=== PATIENT | male | born 1935 | race Caucasian/White ===

== ENCOUNTER 2024-04-16 05:00 | Observation (INO) | payer MEDICARE, OTHER, SELFPAY ==
[2024-04-15 22:21] VITALS: BP 162/99
[2024-04-15 22:32] VITALS: BP 162/99
[2024-04-15 22:45] LABS: % Basophils 0.2 % (0-2); % Eosinophils 1.4 % (0-6); % Immature Granulocytes 0.2 % (0-0.5); % Lymphocytes 39.6 % (20.5-51.1); % Monocytes 4.3 % (1.7-9.3); % Neutrophils 54.3 % (42.2-75.2); Absolute Eosinophils 0.1 10^3/uL (0-0.7); Absolute Lymphocytes 4.1 10^3/uL (1.2-3.4); Absolute Monocytes 0.4 10^3/uL (0.1-0.6); Absolute Neutrophils 5.6 10^3/uL (1.4-6.5); Hematocrit 44.8 % (39.0-52.0); Hemoglobin 15.9 g/dL (13.0-18.0); Mean Corp Hgb Conc. 35.5 g/dL (33.0-37.0); Mean Corpuscular Hgb 31.3 pg (27.0-31.0); Mean Corpuscular Volume 88.2 fL (80.0-94.0); Mean Platelet Volume 9.9 fL (7.4-10.4); Nucleated Red Blood Cells % 0 % (-); Platelet Count 191 10^3/uL (130-400); Red Blood Cell Count 5.08 10^6/uL (4.70-6.10); Red Cell Dist. Width 13.2 % (11.5-14.5); White Blood Cell Count 10.2 10^3/uL (4.8-10.8)
--- NOTE | 2024-04-15 22:48 | ED.GENMED ---
History of Present Illness
General
Chief Complaint: Abdominal Symptoms
Time Seen by Provider: 04/15/24 22:46
Past History
Past History
ED Past Medical History: Arrthythmia (Atrial fibrillation), HTN, Hypercholesterolemia and Other (pacemaker)
ED Past Surgical History: Cardiac
Social History
Tobacco: Non-smoker
Alcohol: None
Drug: None
Personal:
Living: with family
Family History
Family History: Other (no significant); Negative Sudden
Course
Orders/Labs/Results
Orders:
Orders
04/15/24 22:36
IV Insert/Care/Rem.- Treatment PRN
04/15/24 22:37
Complete Blood Count/With Diff Urgent
04/15/24 22:38
Comprehensive Metabolic Panel Urgent
Lipase Urgent
04/15/24 22:53
Morphine Sulfate 4 mg .ROUTE .STK-MED ONE
Ondansetron Injectable [Zofran] 4 mg .ROUTE .STK-MED ONE
04/15/24 22:54
Morphine Sulfate 4 mg IV NOW STA
04/15/24 22:56
Ondansetron Injectable [Zofran] 4 mg IV NOW STA
04/15/24 23:02
Lactic Acid Urgent
Abnormal Lab Results
04/15/24 04/15/24
22:37 22:38
MCH 31.3 H pg
(27.0-31.0)
Absolute Lymphs (auto) 4.1 H 10^3/uL
(1.2-3.4)
Glucose 140 H mg/dl
(70-99)
Total Bilirubin 2.6 H mg/dl
(0.2-1.3)
04/15/24 22:37
04/15/24 22:38
Vital Signs
Initial and Last Documented VS:
Initial Vital Signs
Temp Pulse Resp BP Pulse Ox
97.5 F 77 20 162/99 99
04/15/24 22:32 04/15/24 22:32 04/15/24 22:32 04/15/24 22:32 04/15/24 22:32
Last Documented Vital Signs
Temp Pulse Resp BP Pulse Ox
97.5 F 77 20 162/99 99
04/15/24 22:32 04/15/24 22:32 04/15/24 22:32 04/15/24 22:32 04/15/24 22:32
ED Attending Note
-
Portions of this chart may have been created with voice recognition software.� Occasional wrong word or��sound alike� substitutions may have occurred due to the inherent limitations of voice recognition software.
Discharge Plan
Departure
Prescriptions:
No Action
tamsulosin 0.4 MG capsule
0.4 mg PO HS
Xarelto 20 MG tablet
20 mg PO DAILY
dutasteride 0.5 MG capsule
0.5 mg PO DAILY
donepezil 10 mg tablet
10 mg PO DAILY
cyanocobalamin (vitamin B-12) 1,000 mcg Tablet
1,000 mcg PO DAILY
meclizine 12.5 mg tablet
12.5 mg PO BID
acetaminophen 500 mg Tablet
500 mg PO BIDPRN PRN (Reason: mild pain)
carvedilol 3.125 mg tablet
3.125 mg PO BID
levothyroxine 75 mcg tablet
75 mcg PO Q48H
hydrocortisone 2.5 % cream with perineal applicator
1 applic topical DAILY
Patient Comments:
04/15/2024: apply to hemmoroids
ascorbic acid (vitamin C) 500 mg Tablet
500 mg PO DAILY
levothyroxine 50 mcg tablet
50 mcg PO Q48H
pantoprazole 40 mg tablet,delayed release (DR/EC)
40 mg PO DAILY
ezetimibe 10 mg tablet
10 mg PO HS
rosuvastatin 10 mg tablet
10 mg PO HS
lactulose [Enulose] 10 gram/15 mL solution
30 ml PO DAILY
cholecalciferol (vitamin D3) 50 mcg (2,000 unit) Tablet
50 mcg PO DAILY
mirabegron [Myrbetriq] 50 mg tablet extended release 24 hr
50 mg PO DAILY
icosapent ethyl [Vascepa] 1 gram capsule
2 g PO BID
memantine 7 mg capsule,sprinkle,ER 24hr
7 mg PO DAILY
Referrals:
UNKNOWN - PT DOES,NOT KNOW [Family Provider] -
Interventions
Interventions:
*Risk Screen - Suicide Last Done: 04/15/24 23:23
*General Assessment Last Done: 04/15/24 23:23
*Neglect/Abuse Screening Last Done: 04/15/24 23:23
*ED COVID-19 Vaccine History Last Done: 04/15/24 23:23
Discharge Date and Time
Print Language: WOLOF
[2024-04-15] MEDS: MORPHINE SULFATE 4 MG IV (22:55)
[2024-04-15] MEDS: ZOFRAN 4 MG IV (22:56)
[2024-04-15 23:00] VITALS: BP 142/98
[2024-04-15 23:04] LABS: ALT (SGPT) 18 U/L (0-50); AST (SGOT) 31 U/L (17-59); Albumin 4.7 g/dl (3.5-5.0); Alkaline Phosphatase 52 U/L (38-126); Blood Urea Nitrogen 20 mg/dl (9-20); Calcium 9.5 mg/dl (8.4-10.2); Carbon Dioxide 24 mmol/L (22-30); Chloride 106 mmol/L (98-107); Glucose 140 mg/dl (70-99); Lipase 78 U/L (23-300); Potassium 3.7 mmol/L (3.5-5.1); Sodium 139 mmol/L (135-145); Total Bilirubin 2.6 mg/dl (0.2-1.3); eGFR 53.17
--- NOTE | 2024-04-15 23:09 | ED.GENMED ---
History of Present Illness
<RADHA Lemos - Last Filed: 04/16/24 04:04>
General
Chief Complaint: Abdominal Symptoms
Source: family (daughter is interpreting )
Exam Limitations: none
Time Seen by Provider: 04/15/24 22:46
Nursing documentation reviewed up to this point in time: agreed with
History of Present Illness
History of Present Illness:
89 year old male presents for evaluation of abdominal pain and vomiting. Pt's daughter is present and interpreting for patient. She states that pt experienced one episode of sharp, right-sided abdominal pain on 04/14 which was relieved with Tylenol.
However, at approximately 1900 on 04/15, pt began experiencing the same sharp right-sided abdominal pain following a meal. Tylenol has not relieved the pain. Pt also vomited once prior to his arrival the ED, and once in his room following arrival. Pt
currently rates the pain as 9/10 in severity, and denies radiation. He has not experienced similar symptoms in the past. He denies CP, SOB, fever, chills, and changes in stool. Pt does have a recent diagnosis of hepatitis B, for which he is being
treated per daughter.
Past History
<RADHA Lemos - Last Filed: 04/16/24 04:04>
Past History
ED Past Medical History: Arrthythmia (Atrial fibrillation), HTN, Hypercholesterolemia and Other (pacemaker)
ED Past Surgical History: Cardiac
Social History
Tobacco: Non-smoker
Alcohol: None
Drug: None
Personal:
Living: with family
Family History
Family History: Other (no significant); Negative Sudden
Review of Systems
<RADHA Lemos - Last Filed: 04/16/24 04:04>
Review of Systems
Allergies reviewed?: No
Unable to obtain full review of systems at this time due to: language barrier
Other source history: family
Constitutional: Reports no symptoms
EENT: Reports no symptoms
Respiratory: Reports no symptoms
Cardiac: Reports no symptoms
ABD/GI: Reports abdominal pain, nausea and vomiting
: Reports no symptoms
Musculoskeletal: Reports no symptoms
Skin: Reports no symptoms
Neurological: Reports no symptoms
Phy Exam
<RADHA Lemos - Last Filed: 04/16/24 04:04>
General Physical Exam
General Presentation: mild distress
General age: appears stated age
General Skin: warm
General Habitus: elderly
General Mental: alert
General Hydration: dry mucous membranes (mild)
Cardiovascular Exam
Cardiovascular Exam: regular rate/rhythm and no murmur
Pulmonary Exam
Pulmonary Exam: lungs clear and no respiratory distress
Gastrointestinal Exam
Gastrointestinal Exam: non distended and tender
Palpation: right upper quadrant: Moderate tenderness and right lower quadrant: Moderate tenderness
Neurological Exam
Neurological Exam: alert and oriented x3
Skin Exam
Skin Exam: normal color
Course
<RADHA Lemos - Last Filed: 04/16/24 04:04>
Orders/Labs/Results
Orders:
Orders
04/15/24 22:36
IV Insert/Care/Rem.- Treatment PRN
04/15/24 22:37
Complete Blood Count/With Diff Urgent
04/15/24 22:38
Comprehensive Metabolic Panel Urgent
Lipase Urgent
04/15/24 22:53
Morphine Sulfate 4 mg .ROUTE .STK-MED ONE
Ondansetron Injectable [Zofran] 4 mg .ROUTE .STK-MED ONE
04/15/24 22:54
Morphine Sulfate 4 mg IV NOW STA
04/15/24 22:56
Ondansetron Injectable [Zofran] 4 mg IV NOW STA
04/15/24 23:02
Lactic Acid Urgent
04/15/24 23:32
HYDROmorphone [Dilaudid] 1 mg .ROUTE .STK-MED ONE
04/15/24 23:34
CT Abd/pelvis W Iv Cont Urgent
Comment:
Reason For Exam: RLQ pain and vomiting
HYDROmorphone [Dilaudid] 1 mg IV NOW STA
04/16/24 00:00
US Abdomen Complete/Upper Urgent
Reason For Exam: RUQ abd pain
04/16/24 01:06
COVID-19 Antigen Urgent
Source: Nasal Swab
04/16/24 02:47
Ondansetron Orally Disint [Zofran Odt (Orally Disintegrating)] 4 mg PO NOW STA
04/16/24 02:50
Ondansetron Injectable [Zofran] 4 mg .ROUTE .STK-MED ONE
04/16/24 02:52
Ondansetron Injectable [Zofran] 4 mg IV NOW STA
04/16/24 03:53
Admit/Transfer Patient As Directed
Co-Sign Provider:
Level of Care: Observation services
Assign to:: Telemetry
Physician / Group: htay
Diagnosis: Acute abdominal pain with N/V
Reason for Telemetry: Arrhythmia
Date to Stop Telemetry: 04/19/24
Time to Stop Telemetry: 11:00
04/16/24 03:55
Code Status As Directed
Resuscitation Status: Full Code
04/19/24 11:00
DC Protocol for Telemetry ONCE
Abnormal Lab Results
04/15/24 04/15/24
22:37 22:38
MCH 31.3 H pg
(27.0-31.0)
Absolute Lymphs (auto) 4.1 H 10^3/uL
(1.2-3.4)
Glucose 140 H mg/dl
(70-99)
Total Bilirubin 2.6 H mg/dl
(0.2-1.3)
04/15/24 22:37
04/15/24 22:38
Vital Signs
Initial and Last Documented VS:
Initial Vital Signs
Pulse Resp
83 30
04/15/24 22:20 04/15/24 22:20
Last Documented Vital Signs
Temp Pulse Resp BP Pulse Ox
97.5 F 75 24 120/75 97
04/15/24 22:32 04/16/24 02:22 04/16/24 02:22 04/16/24 02:23 04/16/24 02:22
<Jeferson Savage, - Last Filed: 04/16/24 03:59>
Orders/Labs/Results
Orders:
Orders
04/15/24 22:36
IV Insert/Care/Rem.- Treatment PRN
04/15/24 22:37
Complete Blood Count/With Diff Urgent
04/15/24 22:38
Comprehensive Metabolic Panel Urgent
Lipase Urgent
04/15/24 22:53
Morphine Sulfate 4 mg .ROUTE .STK-MED ONE
Ondansetron Injectable [Zofran] 4 mg .ROUTE .STK-MED ONE
04/15/24 22:54
Morphine Sulfate 4 mg IV NOW STA
04/15/24 22:56
Ondansetron Injectable [Zofran] 4 mg IV NOW STA
04/15/24 23:02
Lactic Acid Urgent
04/15/24 23:32
HYDROmorphone [Dilaudid] 1 mg .ROUTE .STK-MED ONE
04/15/24 23:34
CT Abd/pelvis W Iv Cont Urgent
Comment:
Reason For Exam: RLQ pain and vomiting
HYDROmorphone [Dilaudid] 1 mg IV NOW STA
04/16/24 00:00
US Abdomen Complete/Upper Urgent
Reason For Exam: RUQ abd pain
04/16/24 01:06
COVID-19 Antigen Urgent
Source: Nasal Swab
04/16/24 02:47
Ondansetron Orally Disint [Zofran Odt (Orally Disintegrating)] 4 mg PO NOW STA
04/16/24 02:50
Ondansetron Injectable [Zofran] 4 mg .ROUTE .STK-MED ONE
04/16/24 02:52
Ondansetron Injectable [Zofran] 4 mg IV NOW STA
04/16/24 03:53
Admit/Transfer Patient As Directed
Co-Sign Provider:
Level of Care: Observation services
Assign to:: Telemetry
Physician / Group: htay
Diagnosis: Acute abdominal pain with N/V
Reason for Telemetry: Arrhythmia
Date to Stop Telemetry: 04/19/24
Time to Stop Telemetry: 11:00
04/16/24 03:55
Code Status As Directed
Resuscitation Status: Full Code
04/19/24 11:00
DC Protocol for Telemetry ONCE
Abnormal Lab Results
04/15/24 04/15/24
22:37 22:38
MCH 31.3 H pg
(27.0-31.0)
Absolute Lymphs (auto) 4.1 H 10^3/uL
(1.2-3.4)
Glucose 140 H mg/dl
(70-99)
Total Bilirubin 2.6 H mg/dl
(0.2-1.3)
04/15/24 22:37
04/15/24 22:38
Vital Signs
Initial and Last Documented VS:
Initial Vital Signs
Pulse Resp
83 30
04/15/24 22:20 04/15/24 22:20
Last Documented Vital Signs
Temp Pulse Resp BP Pulse Ox
97.5 F 75 24 120/75 97
04/15/24 22:32 04/16/24 02:22 04/16/24 02:22 04/16/24 02:23 04/16/24 02:22
<RADHA Lemos - Last Filed: 04/16/24 04:04>
*Critical Care Note
Total Time (30-74mins, 75-104mins- exclusive of procedures): Not Applicable
<Jeferson Savage DO - Last Filed: 04/16/24 03:59>
*Critical Care Note
Total Time (30-74mins, 75-104mins- exclusive of procedures): Not Applicable
<RADHA Lemos - Last Filed: 04/16/24 04:04>
Update Note
Update Note:
0038 - CT abdomen/pelvis shows no acute abnormality, no bowel obstruction, normal gallbladder and appendix. Incidental findings include diverticulosis without evidence of diverticulitis, GGOs in lung bases, small BL pleural effusions
ABDOMINAL ULTRASOUND
IMPRESSION:
Negative sonographic Hinton's. Gallbladder wall measures up to 2 mm. No pericholecystic fluid.
..
04/16/2024 0221 AM: Patient resting comfortably, in no acute distress. Discussed CAT scan and ultrasound findings with patient and daughter who had no further questions.
0330: Pt currently experiencing nausea and abdominal pain. Pt and daughter both amenable to pt remaining in hospital overnight for monitoring.
<Jeferson Savage DO - Last Filed: 04/16/24 03:59>
Update Note
Update Note:
0038 - CT abdomen/pelvis shows no acute abnormality, no bowel obstruction, normal gallbladder and appendix. Incidental findings include diverticulosis without evidence of diverticulitis, GGOs in lung bases, small BL pleural effusions
ABDOMINAL ULTRASOUND
IMPRESSION:
Negative sonographic Hinton's. Gallbladder wall measures up to 2 mm. No pericholecystic fluid.
..
04/16/2024 0221 AM: Patient resting comfortably, in no acute distress. Discussed CAT scan and ultrasound findings with patient and daughter who had no further questions.
0330: Pt currently experiencing nausea and abdominal pain. Pt and daughter both amenable to pt remaining in hospital overnight for monitoring. Daughter is agreeable to this plan. Patient states that his symptoms have improved but still states that
he is having nausea.
ED Attending Note
<ST AmintaPA - Last Filed: 04/16/24 04:04>
-
Portions of this chart may have been created with voice recognition software.� Occasional wrong word or��sound alike� substitutions may have occurred due to the inherent limitations of voice recognition software.
<Jeferson Savage DO - Last Filed: 04/16/24 03:59>
ED Attending Note
Patient seen and examined by attending physician: Yes
I performed the substantive portion of visit, reviewed & personally made and approve the management plan that is documented in note by myself or JASON.: Yes
ED Attending Note:
Pleasant 89-year-old male presents with upper and generalized abdominal pain. It has been present for the last day according to daughter. Yesterday patient had an episode of right sided abdominal pain. Patient had a brief episode of this pain
after eating last evening. He took Tylenol and the pain subsided. Around 7 PM tonight the pain returned. He took Tylenol without relief. Denies fever or chills. Patient was seen in conjunction with the PA student. I have reviewed and agree
with the history and treatment plan presented. On my independent physical exam, patient is awake, alert, and oriented x3. Moderate amount of distress. Positive right upper quadrant abdominal pain consistent with the side. Negative McBurney's
point tenderness.
Discharge Plan
Departure
Patient Disposition: Admit
Date of Disposition: 04/16/24
Time of Disposition: 02:19
Admit to: Med/Surg
Presentation/result/management discussed w/ accepting MD/DO: Hospitalist
Patient with high blood pressure during this ER visit?: Yes
Condition: Good
Discharge Problem:
Biliary colic, Abdominal pain
Instructions: Gallstones (DC), Abdominal Pain, BLOOD PRESSURE
Prescriptions:
New
tramadol 50 mg tablet
50 mg PO BID PRN (Reason: Pain) Qty: 10 0RF
No Action
tamsulosin 0.4 MG capsule
0.4 mg PO HS
Xarelto 20 MG tablet
20 mg PO DAILY
dutasteride 0.5 MG capsule
0.5 mg PO DAILY
donepezil 10 mg tablet
10 mg PO DAILY
cyanocobalamin (vitamin B-12) 1,000 mcg Tablet
1,000 mcg PO DAILY
meclizine 12.5 mg tablet
12.5 mg PO BID
acetaminophen 500 mg Tablet
500 mg PO BIDPRN PRN (Reason: mild pain)
carvedilol 3.125 mg tablet
3.125 mg PO BID
levothyroxine 75 mcg tablet
75 mcg PO Q48H
hydrocortisone 2.5 % cream with perineal applicator
1 applic topical DAILY
Patient Comments:
04/15/2024: apply to hemmoroids
ascorbic acid (vitamin C) 500 mg Tablet
500 mg PO DAILY
levothyroxine 50 mcg tablet
50 mcg PO Q48H
pantoprazole 40 mg tablet,delayed release (DR/EC)
40 mg PO DAILY
ezetimibe 10 mg tablet
10 mg PO HS
rosuvastatin 10 mg tablet
10 mg PO HS
lactulose [Enulose] 10 gram/15 mL solution
30 ml PO DAILY
cholecalciferol (vitamin D3) 50 mcg (2,000 unit) Tablet
50 mcg PO DAILY
mirabegron [Myrbetriq] 50 mg tablet extended release 24 hr
50 mg PO DAILY
icosapent ethyl [Vascepa] 1 gram capsule
2 g PO BID
memantine 7 mg capsule,sprinkle,ER 24hr
7 mg PO DAILY
Referrals:
Camden Butler MD [Active] - Call in 1-3 days for appt
UNKNOWN - PT DOES,NOT KNOW [Family Provider] -
Activity Restrictions/Additional Instructions:
It was a pleasure meeting you and taking part in your care. We hope for your continued healing and wellness.
Please read discharge instructions in their entirety. However, they are for general education and may not describe your exact diagnosis at discharge. Information on your ER visit and medical conditions were discussed with you along with appropriate
follow up information...
If indicated, please take your medications as instructed and indicated on discharge paperwork.
Please schedule a follow up appointment as directed. Call to schedule an appointment
Please return to the emergency department with ANY change in, persisting, or worsening of symptoms. If any of your symptoms do not improve, or persist, or become more severe within 6-12 hours, please return to the emergency department for further
care.
Please return to the emergency department if you develop a headache, neck pain/stiffness, fever greater than 100.4F, chest pain, shortness of breath, persistent nausea, vomiting, slurred speech, difficulty walking, numbness/tingling, weakness, signs
of infection or any other symptoms that are worrisome to you.
If you have any questions or concerns please do not hesitate to call the Hospital at or E-mail me directly at [email or web address]
Interventions
Interventions:
*Risk Screen - Suicide Last Done: 04/15/24 23:23
*General Assessment Last Done: 04/15/24 23:23
*Neglect/Abuse Screening Last Done: 04/15/24 23:23
*ED COVID-19 Vaccine History Last Done: 04/15/24 23:23
MY-Kqcqwv-Ffwwmprgke Assessment Last Done: 04/16/24 00:11
Discharge Date and Time
Print Language: MAURITANIAN
[2024-04-15 23:25] LABS: Lactic Acid 1.7 mmol/L (0.7-2.0)
[2024-04-15] MEDS: DILAUDID 1 MG IV (23:34)
[2024-04-15 23:41] VITALS: BP 152/91
[2024-04-16] VITALS (17 sets, daily range): BP systolic 92–134; BP diastolic 48–106; BMI 30.2; BMI 29.7
[2024-04-16 01:21] LABS: COVID-19 Antigen Negative (Negative)
[2024-04-16] MEDS: ZOFRAN 4 MG IV ×2 (02:52→06:08)
--- NOTE | 2024-04-16 03:48 | HPS.HSE ---
Family Physician
-
Family Physician: NOT KNOW UNKNOWN - PT DOES
Chief Complaint
-
abdominal pain
History of Present Illness
I could not get any information from the patient as he is [place] only speaker
Information gathered by chart review and speaking with the ER staff.
89M [place] only speaker HX PPM implant, Prx AF, HTN, PPM seen at ER for evaluation of abdominal pain
Acute abdominal pain
- 2 episodes of sharp Rt side abdominal pain following meal with pain free interval
- associated with vomiting
- recent diagnosis of hepatitis B, for which he is being treated per daughter.
At ER Rx
- IV Dilaudid 1mg + IV Morphine 4 mg
- IV Zofran 4mg x 3
Medical History
Past Medical History
Past Medical History: Reports Arrhythmia (PAF), Dementia, HTN, Hypercholesterolemia, Hypothyroidism and Psychiatric (Dementia )
Past Surgical History: Reports Cardiac
Social History
Tobacco: Non-smoker
Alcohol: None
Personal:
Living: With Family
Family History
Family History: Not pertinent
Allergies / Home Medications
Allergies reflects when Allergies were last updated in [facility].
Home Medications with original date entered in [facility]
Allergy/Medication List:
Allergies
Allergy/AdvReac Type Severity Reaction Status Date / Time
No Known Allergies Allergy Verified 03/16/19 13:18
Home Medications
rivaroxaban 20 mg tablet (Xarelto) 20 mg PO DAILY 02/24/16
tamsulosin 0.4 mg capsule 0.4 mg PO HS 02/24/16
dutasteride 0.5 mg capsule 0.5 mg PO DAILY 04/18/17
acetaminophen 500 mg tablet 500 mg PO BIDPRN PRN mild pain 04/15/24
ascorbic acid (vitamin C) 500 mg tablet 500 mg PO DAILY 04/15/24
carvedilol 3.125 mg tablet 3.125 mg PO BID 04/15/24
cholecalciferol (vitamin D3) 50 mcg (2,000 unit) tablet 50 mcg PO DAILY 04/15/24
cyanocobalamin (vitamin B-12) 1,000 mcg tablet 1,000 mcg PO DAILY 04/15/24
donepezil 10 mg tablet 10 mg PO DAILY 04/15/24
ezetimibe 10 mg tablet 10 mg PO HS 04/15/24
hydrocortisone 2.5 % topical cream with perineal applicator 1 applic topical DAILY 04/15/24
icosapent ethyl 1 gram capsule (Vascepa) 2 g PO BID 04/15/24
lactulose 10 gram/15 mL oral solution (Enulose) 30 ml PO DAILY 04/15/24
levothyroxine 50 mcg tablet 50 mcg PO Q48H alternate w/ 75mcg 04/15/24
levothyroxine 75 mcg tablet 75 mcg PO Q48H alternate w/ 50mcg 04/15/24
meclizine 12.5 mg tablet 12.5 mg PO BID 04/15/24
memantine 7 mg capsule sprinkle,extended release 24hr 7 mg PO DAILY 04/15/24
mirabegron 50 mg tablet,extended release 24 hr (Myrbetriq) 50 mg PO DAILY 04/15/24
pantoprazole 40 mg tablet,delayed release 40 mg PO DAILY 04/15/24
rosuvastatin 10 mg tablet 10 mg PO HS 04/15/24
tramadol 50 mg tablet 50 mg PO BID PRN Pain #10 tabs 04/16/24
Review of Systems
-
Constitutional: Reports No Symptoms
EENT: Reports No Symptoms
Respiratory: Reports No Symptoms
Cardiac: Reports No Symptoms
Abdomen/GI: Reports See HPI, Abdominal Pain, Nausea and Vomiting; Denies Diarrhea
: Reports No Symptoms
Musculoskeletal: Reports No Symptoms
Skin: Reports No Symptoms
Neurological: Reports No Symptoms
Endocrine: Reports No Symptoms
Hematologic/Lymphatic: Reports No Symptoms
Psych: Reports No Symptoms
Physical Exam
Vital Signs
Vital Signs
Temp Pulse Resp BP Pulse Ox
97.5 F 75 24 120/75 97
04/15/24 22:32 04/16/24 02:22 04/16/24 02:22 04/16/24 02:23 04/16/24 02:22
Physical Exam
General: Well Developed, Well Nourished, No Apparent Distress and Comfortable; No Conversant
HEENT: NormoCephalic, Anicteric and Moist mucous membranes
Respiratory: Clear; No Wheezes, Rales or Rhonchi
Cardiac: S1/S2 and Regular Rhythm; No Tachycardia
Breast: Deferred by me
GI: Soft, Non Tender, Non Distended and Normal Bowel Sounds
Genito-urinary: Deferred by me
Skin: Other (vertiligo at face , hands )
Laboratory Results
-
04/15/24 22:37
04/15/24 22:38
Laboratory Results
Lactic Acid 1.7 mmol/L (0.7-2.0) 04/15/24 23:02
Total Bilirubin 2.6 mg/dl (0.2-1.3) H 04/15/24 22:38
AST 31 U/L (17-59) 04/15/24 22:38
ALT 18 U/L (0-50) 04/15/24 22:38
Alkaline Phosphatase 52 U/L (38-126) 04/15/24 22:38
Lipase 78 U/L (23-300) 04/15/24 22:38
Data Reviewed
-
CT Scan: Report Reviewed by me
Ultrasound: Report Reviewed by me
Lab Data: Labs Reviewed by me
Impression/Plan
-
Data
Unremarkable CBC and BMP
TB 2.6
NEG Covid
NO PRIOR hospitalist admission:
ASSESSMENT & PLAN
Acute abdominal pain with N/V - DDX acute Viral GE vs. constipation
Unremarkable prelim report of CT AP and US for acute patho
Unremarkable labs
- clear diet and ADAT
- IVF and anti emetics
- IV PPI daily
- Observe
- f/u final CT AP report in AM
- To consider GI consult is symptoms persist
CT AP shows Incidentals include diverticulosis without evidence of diverticulitis,
Pre existing conditions:
Prx AF ; on carvedilol and Xarelto
PPM implant
HLD: on Rosuvastatin and ezetimibe
Hypothyroid: LT4
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
BPH: on tamsulosin and dutasteride
Depigmented skin on circum oral face , hands ( Vitiligo)
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
Code: Full
Obs TLM
[2024-04-16] MEDS: NSS 1000 IV (06:20)
[2024-04-16] MEDS: DUPHALAC/CHRONULAC 30 GRAMS PO (09:22)
[2024-04-16] MEDS: NAMENDA 5 MG PO ×2 (09:22→20:43)
[2024-04-16] MEDS: XARELTO 20 MG PO (09:23)
[2024-04-16] MEDS: COREG 3.125 MG PO ×2 (09:23→20:44)
[2024-04-16] MEDS: ARICEPT 10 MG PO (09:24)
[2024-04-16] MEDS: PROSCAR 5 MG PO (09:24)
[2024-04-16] MEDS: TYLENOL 650 MG PO (09:41)
--- NOTE | 2024-04-16 10:37 | W.PN.HOSP.TC ---
Today's Communication/Plan
-
Advance to full liquid diet
Wean off IV fluids
Monitor for recurrent gastrointestinal symptoms.
Assessment / Plan
Assessment / Plan
Impression:
Presentation with acute onset of nausea, emesis, diffuse abdominal pain
Acute likely viral gastroenteritis suspected.
Conditions prior to admission:
Paroxysmal atrial fibrillation
Anticoagulation with Xarelto
Sick sinus syndrome status post pacemaker
Essential hypertension.
Hypothyroidism on replacement.
Dyslipidemia.
BPH
Hepatitis B recently diagnosed.
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
Plan:
Acute likely viral gastroenteritis
Patient reports improvement and almost complete resolution of nausea and abdominal pain
Exam with very mild mostly right upper quadrant tenderness
Imaging including ultrasound and CT scan unremarkable for acute abnormalities, particularly with no evidence of acute cholecystitis or choledocholithiasis.
Laboratory workup unremarkable with normal WBC. CMP with normal electrolytes and renal function. Mildly elevated total bilirubin with normal transaminases.
Advance diet to full liquid.
Wean off IV fluids.
Monitor for another 24 hours
Cardiovascular.
Paroxysmal A-fib
Sick sinus syndrome status post pacemaker.
Essential hypertension
Most recent echocardiogram with preserved biventricular function
Continue preadmission regimen including Coreg
Hypothyroidism on replacement
BPH
Monitor for retention
Continue Flomax and dutasteride
Continue Myrbetriq
Anticipated Discharge: 24 - 48 hours
Subjective/Interval History
-
Date of Service: April 16, 2024
Objective Data
-
Labs:
Laboratory Results
04/15/24 04/15/24
22:37 22:38
WBC 10.2
Hgb 15.9
Hct 44.8
Plt Count 191
Sodium 139
Potassium 3.7
Chloride 106
Carbon Dioxide 24
BUN 20
Creatinine 1.3
Glucose 140 H
Calcium 9.5
Total Bilirubin 2.6 H
AST 31
ALT 18
Alkaline Phosphatase 52
Vital Signs:
Vital Signs
Temp Pulse Resp BP Pulse Ox
97.6 F 76 16 134/86 94
04/16/24 07:00 04/16/24 07:00 04/16/24 07:00 04/16/24 07:00 04/16/24 07:00
Physical Exam
-
General: Well Developed and No Apparent Distress
HEENT: Normocephalic, Atraumatic and Moist Mucous Membranes
Respiratory: Clear to Auscultation
Cardiac: Regular Rhythm and S1/S2; Negative Murmur, Rub or Gallop
GI: Soft, Nondistended, Normal Bowel Sounds and Other (Mild tenderness in the upper quadrants mostly on the right side.); Negative Organomegaly
Rectal: Deferred by Provider
Musculoskeletal: No Clubbing, No Cyanosis and No Edema
Skin: Negative Rash
Neuro: Awake, Alert, Oriented, AO x 3 and Nonfocal/Grossly Intact
--- NOTE | 2024-04-16 11:30 | PTCARENOTE ---
Pt states primary languages are Bermudian and Yakut. States he has no preference. Additional health history and pain assessment completed with [place] [employer] (Mushtaqch [id number]). Pt states pain has greatly improved. 3/10 RUQ abdominal pain. PRN
Tylenol provided.
[2024-04-16] MEDS: SYNTHROID 75 MCG PO (11:54)
--- NOTE | 2024-04-16 16:30 | PTCARENOTE ---
Pt received from ER via WC, accompanied by ER staff. Pt awake and alert, oriented to self; speaks Tristanian; communicating via gestures; pt pleasant and cooperative. RONQUILLO well, ambulatory to bed with minimal assistance. VSS. PLaced on
telemetry:Afib with V-pacing. On room air- pulse ox 97%, no SOB noted. Abd large, soft, BS (+); loud; pt on full liquid diet. Pt DTV; urinal at bedside. Afebrile; W/D/I. Oriented to 4East. Currently resting quietly in bed. Will continue to
monitor.
[2024-04-16] MEDS: FLOMAX 0.4 MG PO (20:43)
[2024-04-16] MEDS: SENOKOT-S 1 TABLET PO (20:43)
[2024-04-16] MEDS: CRESTOR 10 MG PO (20:43)
[2024-04-16] MEDS: ZETIA 10 MG PO (20:43)
[2024-04-17 00:16] VITALS: BP 98/45
[2024-04-17 03:40] VITALS: BP 147/80
[2024-04-17] MEDS: SYNTHROID 50 MCG PO (05:21)
[2024-04-17 07:50] VITALS: BP 134/68
[2024-04-17 08:22] LABS: Hematocrit 44.3 % (39.0-52.0); Hemoglobin 15.4 g/dL (13.0-18.0); Mean Corp Hgb Conc. 34.8 g/dL (33.0-37.0); Mean Corpuscular Hgb 31.6 pg (27.0-31.0); Mean Corpuscular Volume 90.8 fL (80.0-94.0); Mean Platelet Volume 10.3 fL (7.4-10.4); Platelet Count 177 10^3/uL (130-400); Red Blood Cell Count 4.88 10^6/uL (4.70-6.10); Red Cell Dist. Width 13.5 % (11.5-14.5); White Blood Cell Count 16.8 10^3/uL (4.8-10.8)
[2024-04-17 08:56] LABS: AST (SGOT) 48 U/L (17-59); Alkaline Phosphatase 47 U/L (38-126); Blood Urea Nitrogen 22 mg/dl (9-20); Calcium 9.1 mg/dl (8.4-10.2); Carbon Dioxide 28 mmol/L (22-30); Chloride 100 mmol/L (98-107); Estimated Creatinine Clearance 46 ml/min; Glucose 115 mg/dl (70-99); Potassium 3.4 mmol/L (3.5-5.1); Sodium 138 mmol/L (135-145); Total Bilirubin 5.2 mg/dl (0.2-1.3); Total Protein 6.4 g/dl (6.3-8.2); eGFR > 60.00
[2024-04-17 09:06] LABS: ALT (SGPT) 18 U/L (0-50)
[2024-04-17] MEDS: PROSCAR 5 MG PO (09:34)
[2024-04-17] MEDS: COREG 3.125 MG PO (09:35)
[2024-04-17] MEDS: NAMENDA 5 MG PO (09:37)
[2024-04-17] MEDS: DUPHALAC/CHRONULAC 30 GRAMS PO (09:38)
[2024-04-17] MEDS: ARICEPT 10 MG PO (09:40)
[2024-04-17] MEDS: XARELTO 20 MG PO (09:40)
--- NOTE | 2024-04-17 11:01 | CM ---
CM spoke with patients daughterMary, via telephone, initial assessment completed. Per daughter, patient resides with his and daughter in a multiple story home, patient resides on the first floor with no steps to enter. Patient has a walker
and cane at home, daughter reports [facility] in the past, denies SNF. Patient PCP Dr. Panchal, daughter unsure of pharmacy at this time, will let CM know. MENDEZ form reviewed with daughter on the phone. Daughter inquiring about patient
discharge, reports she will pick patient up when medically stable. CM will continue to follow for all discharge planning needs.
Plan; home no needs, watch for VN needs.
[2024-04-17 11:30] VITALS: BP 104/48
--- NOTE | 2024-04-17 15:46 | W.DS.TRANS ---
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
-
Discharge Instructions:
Sleep Apnea Risk Intermediate
Discharge Diagnosis/Procedures Acute gastroenteritis
Diet Regular
Instructions:
Stand-Alone Forms:
Changes to Home Medications: No
Discharge Medications:
DC Medications w/original date entered in [facility]
rivaroxaban 20 mg tablet (Xarelto) 20 mg PO DAILY Blood Clot Prevention/Tx 02/24/16
tamsulosin 0.4 mg capsule 0.4 mg PO HS Prostate Issue 02/24/16
dutasteride 0.5 mg capsule 0.5 mg PO DAILY Prostate Issues 04/18/17
acetaminophen 500 mg tablet 500 mg PO BIDPRN PRN mild pain 04/15/24
ascorbic acid (vitamin C) 500 mg tablet 500 mg PO DAILY Supplement 04/15/24
carvedilol 3.125 mg tablet 3.125 mg PO BID Blood Pressure 04/15/24
cholecalciferol (vitamin D3) 50 mcg (2,000 unit) tablet 50 mcg PO DAILY Supplement 04/15/24
cyanocobalamin (vitamin B-12) 1,000 mcg tablet 1,000 mcg PO DAILY Supplement 04/15/24
donepezil 10 mg tablet 10 mg PO DAILY Mental Health 04/15/24
ezetimibe 10 mg tablet 10 mg PO HS High Cholesterol 04/15/24
hydrocortisone 2.5 % topical cream with perineal applicator 1 applic topical DAILY Anti-Inflammatory 04/15/24
icosapent ethyl 1 gram capsule (Vascepa) 2 g PO BID High Cholesterol 04/15/24
lactulose 10 gram/15 mL oral solution (Enulose) 30 ml PO DAILY Constipation 04/15/24
levothyroxine 50 mcg tablet 50 mcg PO Q48H alternate w/ 75mcg 04/15/24
levothyroxine 75 mcg tablet 75 mcg PO Q48H alternate w/ 50mcg 04/15/24
meclizine 12.5 mg tablet 12.5 mg PO BID Neurological Condition 04/15/24
memantine 7 mg capsule sprinkle,extended release 24hr 7 mg PO DAILY Neurological Condition 04/15/24
mirabegron 50 mg tablet,extended release 24 hr (Myrbetriq) 50 mg PO DAILY Urinary Issue 04/15/24
pantoprazole 40 mg tablet,delayed release 40 mg PO DAILY Gastrointestinal Issue 04/15/24
rosuvastatin 10 mg tablet 10 mg PO HS High Cholesterol 04/15/24
tramadol 50 mg tablet 50 mg PO BID PRN Pain #10 tabs 04/16/24
Home Medication Changes
Pending Results: No
[2024-04-17 16:00] VITALS: BP 128/60
== END 2024-04-17 16:59 | disposition home or self-care (01) ==
LOC: 4 EAST ACU 05:00
PROVIDERS: ADMITTING PHYSICIAN Internal Medicine; ATTENDING PHYSICIAN Internal Medicine; EMERGENCY PHYSICIAN Student in an Organized Health Care Education/Training Program
DX: K52.9 Noninfective gastroenteritis and colitis, unspecified (principal); R10.31 Right lower quadrant pain; R11.2 Nausea with vomiting, unspecified; I10 Essential (primary) hypertension; E78.00 Pure hypercholesterolemia, unspecified; I48.91 Unspecified atrial fibrillation; L80 Vitiligo; B19.10 Unspecified viral hepatitis B without hepatic coma; N40.0 Benign prostatic hyperplasia without lower urinary tract symptoms; N28.1 Cyst of kidney, acquired; K57.30 Diverticulosis of large intestine without perforation or abscess without bleeding; M51.37 Other intervertebral disc degeneration, lumbosacral region; E78.5 Hyperlipidemia, unspecified; E03.9 Hypothyroidism, unspecified; F03.90 Unspecified dementia, unspecified severity, without behavioral disturbance, psychotic disturbance, mood disturbance, and anxiety; I48.0 Paroxysmal atrial fibrillation; J90 Pleural effusion, not elsewhere classified; Z79.890 Hormone replacement therapy; Z95.0 Presence of cardiac pacemaker; Z79.01 Long term (current) use of anticoagulants; Z11.52 Encounter for screening for COVID-19
CPT/HCPCS: 74177; 76700; 80053; 83605; 83690; 85025; 85027; 87811; G0378; Q9967

== ENCOUNTER 2024-05-15 06:22 | Inpatient (IN) | payer MEDICARE, OTHER, SELFPAY ==
[2024-05-15] VITALS (12 sets, daily range): BP systolic 102–168; BP diastolic 47–108; BMI 29.2
--- NOTE | 2024-05-15 03:01 | ED.GENMED ---
History of Present Illness
<RADHA Mejia - Last Filed: 05/15/24 05:43>
General
Chief Complaint: Abdominal Pain
Time Seen by Provider: 05/15/24 02:37
History of Present Illness
History of Present Illness:
Pt is an 89 y/o male with PMHx of dementia, a-fib, sick sinus syndrome with pacemaker, HLD, GERD, hypothyroid, and hepatitis B presenting with RUQ pain x3 hours. Patient is non-icelandic speaking and has a hx of dementia. Patients daughter is present
and providing history along with the patient. Pt states the abdominal pain started just before midnight. It is located to the RUQ and epigastric area and is a sharp 9/10 all the time. He has not taken anything to help with the symptoms and nothing
makes it worse. He states he also has nausea and vomited 3x. He states he is having difficulty breathing secondary to pain. He had similar symptoms last month and spent two days in the hospital. CT and US of the abdomen was negative during this
workup. Labs showed elevated direct bilirubin. Patient has a history of hepatitis B which he is currently being treated for by a university relations recruiter. Pt denies any fevers, flank pain, change in bowel habits, chest pain, urinary symptoms.
Past History
<RADHA Mejia - Last Filed: 05/15/24 05:43>
Past History
ED Past Medical History: Arrthythmia (Atrial fibrillation), HTN, Hypercholesterolemia and Other (pacemaker)
ED Past Surgical History: Cardiac
Social History
Tobacco: Non-smoker
Alcohol: None
Drug: None
Personal:
Living: with family
Family History
Family History: Other (no significant); Negative Sudden
Phy Exam
<RADHA Mejia - Last Filed: 05/15/24 05:43>
Physical Exam
Physical Exam:
GENERAL: Alert , in no apparent distress
EYE: pupils equal and reactive
Throat: Airway intact, no exudates
NECK: Supple, no significant adenopathy.
CARDIAC: Regular rate and rhythm .
LUNGS: Clear breath sounds bilaterally, no acute respiratory distress, no wheezes/rales/rhonchi
ABDOMEN: Pain with palpation to epigastric and RUQ. Nontender fatty mass under the skin noted in RUQ. Abdomen is soft and nondistended.
NEUROLOGICAL: Alert and oriented, no focal neuro deficits
SKIN: Warm and dry, skin intact.
MUSCULOSKELETAL: No edema, well perfused.
PSYCH: Normal and appropriate interaction.
Course
<[facility] - Last Filed: 05/15/24 05:43>
Orders/Labs/Results
Orders:
Orders
05/15/24 03:02
Electrocardiogram (*1) Urgent
Reason for Study: Abdominal Pain
EKG- Treatment ONCE
05/15/24 03:09
Complete Blood Count/With Diff Urgent
Comprehensive Metabolic Panel Urgent
Lactic Acid Q4H
Comment: CANCEL 2nd LACTIC ACID IF 1st LACTIC ACID IS LESS THAN 2
Lipase Urgent
Troponin I Urgent
05/15/24 03:16
0.9% Sodium Chloride 1000 ml [Nss] 1,000 ml IV 200 mls/hr
HYDROmorphone [Dilaudid] 0.5 mg IV NOW STA
Ondansetron Injectable [Zofran] 4 mg IV NOW STA
Pantoprazole [Protonix IV] 40 mg IV NOW STA
05/15/24 04:32
Urinalysis Reflex To Culture Urgent
Date Specimen was Collected: 05/15/24
Time Specimen was Collected: 04:16
Urine Microscopic Reflex Cult Urgent
05/15/24 04:38
CT Abd/pelvis W Iv Cont Urgent
Comment:
Reason For Exam: acute epigastric/RUQ pain w N/V
05/15/24 07:15
Lactic Acid Q4H
Comment: CANCEL 2nd LACTIC ACID IF 1st LACTIC ACID IS LESS THAN 2
Abnormal Lab Results
05/15/24 05/15/24
03:09 04:32
Potassium 3.1 L mmol/L
(3.5-5.1)
Glucose 135 H mg/dl
(70-99)
Lactic Acid 2.6 H mmol/L
(0.7-2.0)
Total Bilirubin 1.8 H mg/dl
(0.2-1.3)
Urine Ketones 1+ A
(Negative)
Ur Occult Blood Reflex 3+ A
(Negative)
Urine RBC 3-6 A /HPF
(0-2)
Urine Bacteria (Reflex) Few A
(Negative)
05/15/24 03:09
05/15/24 03:09
Vital Signs
Initial and Last Documented VS:
Initial Vital Signs
Temp Pulse Resp BP Pulse Ox
97.9 F 89 28 168/93 99
05/15/24 02:33 05/15/24 02:33 05/15/24 02:33 05/15/24 02:33 05/15/24 02:33
Last Documented Vital Signs
Temp Pulse Resp BP Pulse Ox
97.9 F 66 15 162/75 99
05/15/24 02:33 05/15/24 05:04 05/15/24 05:04 05/15/24 05:04 05/15/24 05:04
<Daisy Simental, DO - Last Filed: 05/15/24 05:51>
Orders/Labs/Results
Orders:
Orders
05/15/24 03:02
Electrocardiogram (*1) Urgent
Reason for Study: Abdominal Pain
EKG- Treatment ONCE
05/15/24 03:09
Complete Blood Count/With Diff Urgent
Comprehensive Metabolic Panel Urgent
Lactic Acid Q4H
Comment: CANCEL 2nd LACTIC ACID IF 1st LACTIC ACID IS LESS THAN 2
Lipase Urgent
Troponin I Urgent
05/15/24 03:16
0.9% Sodium Chloride 1000 ml [Nss] 1,000 ml IV 200 mls/hr
HYDROmorphone [Dilaudid] 0.5 mg IV NOW STA
Ondansetron Injectable [Zofran] 4 mg IV NOW STA
Pantoprazole [Protonix IV] 40 mg IV NOW STA
05/15/24 04:32
Urinalysis Reflex To Culture Urgent
Date Specimen was Collected: 05/15/24
Time Specimen was Collected: 04:16
Urine Microscopic Reflex Cult Urgent
05/15/24 04:38
CT Abd/pelvis W Iv Cont Urgent
Comment:
Reason For Exam: acute epigastric/RUQ pain w N/V
05/15/24 07:15
Lactic Acid Q4H
Comment: CANCEL 2nd LACTIC ACID IF 1st LACTIC ACID IS LESS THAN 2
Abnormal Lab Results
05/15/24 05/15/24
03:09 04:32
Potassium 3.1 L mmol/L
(3.5-5.1)
Glucose 135 H mg/dl
(70-99)
Lactic Acid 2.6 H mmol/L
(0.7-2.0)
Total Bilirubin 1.8 H mg/dl
(0.2-1.3)
Urine Ketones 1+ A
(Negative)
Ur Occult Blood Reflex 3+ A
(Negative)
Urine RBC 3-6 A /HPF
(0-2)
Urine Bacteria (Reflex) Few A
(Negative)
05/15/24 03:09
05/15/24 03:09
Vital Signs
Initial and Last Documented VS:
Initial Vital Signs
Temp Pulse Resp BP Pulse Ox
97.9 F 89 28 168/93 99
05/15/24 02:33 05/15/24 02:33 05/15/24 02:33 05/15/24 02:33 05/15/24 02:33
Last Documented Vital Signs
Temp Pulse Resp BP Pulse Ox
97.9 F 66 15 162/75 99
05/15/24 02:33 05/15/24 05:04 05/15/24 05:04 05/15/24 05:04 05/15/24 05:04
<RADHA Mejia - Last Filed: 05/15/24 05:43>
*Radiology
Radiology exam reviewed: radiology read reviewed
*Pulse Oximetry
Patient hypoxic: no
*EKG
Interpreted by ED Provider?: Yes
EKG Intrepretation Date: 05/15/24
Interpretation: abnormal
Comparison EKG: no changes
Heart Rate: 70
Rate: normal
Rhythm: ventricular paced
[place]: normal axis
Interval: normal interval
QRS Pattern: normal QRS
Ischemia: no ischemia
*Child Support Case Officer Interpretation
Rate: Child Support Case Officer- N/A
*Critical Care Note
Total Time (30-74mins, 75-104mins- exclusive of procedures): Not Applicable
ED Attending Note
<RADHA Mejia - Last Filed: 05/15/24 05:43>
-
Portions of this chart may have been created with voice recognition software.� Occasional wrong word or��sound alike� substitutions may have occurred due to the inherent limitations of voice recognition software.
<Daisy Simental DO - Last Filed: 05/15/24 05:51>
ED Attending Note
Patient seen and examined by attending physician: Yes
I performed the substantive portion of visit, reviewed & personally made and approve the management plan that is documented in note by myself or JASON.: Yes
ED Attending Note:
This is an 89-year-old Faroese-speaking gentleman who resides at home with family. He has history of atrial fibrillation, pacemaker, hypertension, mild dementia, hypothyroidism, dyslipidemia, incidental finding of hepatitis B currently undergoing
treatment for hepatitis B since January of this year. He follows with a university relations recruiter in [facility]. He was hospitalized here for 2 nights, 1 month ago with similar complaints of abrupt onset of severe right-sided abdominal pain
accompanied with nausea and vomiting. Unremarkable CT abdomen pelvis as well as unremarkable abdominal ultrasound at that time.
Labs were remarkable for moderate uptrend in bilirubin from 2.6-5.2. All other LFTs within normal limits. Normal lactic acid. White blood cell count trended up from normal to 16 on day of discharge but overall patient felt improved with complete
resolution of symptoms, tolerating oral diet and was discharged to home. Thought was acute gastroenteritis as cause for his symptoms. He has had no recurrent episodes until tonight when similar abrupt onset of epigastric to right upper quadrant
pain accompanied with nausea and nonbloody vomitus. He has not had a fever nor chills, no chest pain, no diaphoresis, no shortness of breath, no back pain or flank pain.
No aggravating nor relieving factors.
Patient speaks Faroese, daughter is at bedside and interpreting. He has not followed up with university relations recruiter since discharge 1 month ago.
There has been no recent change in medications.
GENERAL: 89-year-old Faroese-speaking gentleman appears his stated age, awake and alert, appears in moderate distress, intermittently moaning. He is cooperative. No respiratory distress.
EYE: pupils equal and reactive. anicteric
NECK: Supple, nontender, no meningismus, no significant adenopathy.
ENT: oral mucosa is moist. No rhinorrhea.
CARDIAC: Regular rate and rhythm. no murmur.
LUNGS: Clear breath sounds bilaterally, no acute respiratory distress, no wheezes/rales/rhonchi
ABDOMEN: Rotund, soft, nondistended, moderate tenderness epigastric region as well as mild tenderness right upper quadrant, no r/g, no cvat. normoactive BS.
NEUROLOGICAL: Alert and oriented x3, no focal neuro deficits.
SKIN: Warm and dry, normal color, skin intact. No rash.
MUSCULOSKELETAL: No C/C/E. peripheral pulses are full and equal b/l. No palpable tenderness.
PSYCH: Normal and appropriate interaction.
History and exam concerning for acute biliary colic, cholecystitis, other consideration is pancreatitis, recurrent gastroenteritis, ischemic bowel, small bowel obstruction, less likely gastritis/peptic ulcer disease, ACS.
Will medicate for pain and nausea, initiate IV fluids, will check labs including lactic acid, troponin, EKG.
Will consider imaging depending on results and clinical course.
05/15/2024 0550 AM
Patient feeling improved after antiemetic and pain medication but continues with moderate tenderness right upper quadrant, epigastric region.
Labs are remarkable for mildly elevated bilirubin, mildly elevated lactic acid. Normal troponin. Normal lipase.
CT abdomen pelvis concerning for acalculous cholecystitis with slightly distended and inflamed gallbladder.
History and exam most consistent with acute biliary colic/cholecystitis. Will initiate IV antibiotics and admit to hospitalist service.
Discharge Plan
Departure
Patient Disposition: Admit
Date of Disposition: 05/15/24
Time of Disposition: 05:45
Admit to: Med/Surg
Presentation/result/management discussed w/ accepting MD/DO: Hospitalist
Discharge Problem:
Acute acalculous cholecystitis
Prescriptions:
No Action
tamsulosin 0.4 MG capsule
0.4 mg PO HS
Xarelto 20 MG tablet
20 mg PO DAILY
dutasteride 0.5 MG capsule
0.5 mg PO DAILY
donepezil 10 mg tablet
10 mg PO DAILY
cyanocobalamin (vitamin B-12) 1,000 mcg Tablet
1,000 mcg PO DAILY
meclizine 12.5 mg tablet
12.5 mg PO BID
acetaminophen 500 mg Tablet
500 mg PO BIDPRN PRN (Reason: mild pain)
carvedilol 3.125 mg tablet
3.125 mg PO BID
levothyroxine 75 mcg tablet
75 mcg PO Q48H
hydrocortisone 2.5 % cream with perineal applicator
1 applic topical DAILY
Patient Comments:
04/15/2024: apply to hemorrhoids
ascorbic acid (vitamin C) 500 mg Tablet
500 mg PO DAILY
levothyroxine 50 mcg tablet
50 mcg PO Q48H
pantoprazole 40 mg tablet,delayed release (DR/EC)
40 mg PO DAILY
ezetimibe 10 mg tablet
10 mg PO HS
rosuvastatin 10 mg tablet
10 mg PO HS
lactulose [Enulose] 10 gram/15 mL solution
30 ml PO DAILY
cholecalciferol (vitamin D3) 50 mcg (2,000 unit) Tablet
50 mcg PO DAILY
mirabegron [Myrbetriq] 50 mg tablet extended release 24 hr
50 mg PO DAILY
icosapent ethyl [Vascepa] 1 gram capsule
2 g PO BID
memantine 7 mg capsule,sprinkle,ER 24hr
7 mg PO DAILY
tramadol 50 mg tablet
50 mg PO BID PRN (Reason: Pain) Qty: 10 0RF
Referrals:
Saleem Panchal MD [Family Provider] -
Interventions
Interventions:
*Risk Screen - Suicide Last Done: 05/15/24 02:33
*General Assessment Last Done: 05/15/24 02:33
*Neglect/Abuse Screening Last Done: 05/15/24 02:33
ED- Fall Risk Assessment Last Done: 05/15/24 02:33
*ED COVID-19 Vaccine History Last Done: 05/15/24 02:33
LH-Dtjhjc-Axxyhtbeds Assessment Last Done: 05/15/24 03:00
Discharge Date and Time
Print Language: BELARUSIAN
[2024-05-15 03:21] LABS: % Basophils 0.2 % (0-2); % Immature Granulocytes 0.2 % (0-0.5); % Monocytes 4.7 % (1.7-9.3); % Neutrophils 68.9 % (42.2-75.2); Absolute Eosinophils 0.1 10^3/uL (0-0.7); Absolute Lymphocytes 2.3 10^3/uL (1.2-3.4); Absolute Monocytes 0.4 10^3/uL (0.1-0.6); Absolute Neutrophils 6.4 10^3/uL (1.4-6.5); Hematocrit 41.8 % (39.0-52.0); Mean Corp Hgb Conc. 35.9 g/dL (33.0-37.0); Mean Corpuscular Hgb 30.9 pg (27.0-31.0); Mean Platelet Volume 9.6 fL (7.4-10.4); Nucleated Red Blood Cells % 0 % (-); Platelet Count 181 10^3/uL (130-400); Red Blood Cell Count 4.86 10^6/uL (4.70-6.10); Red Cell Dist. Width 13.2 % (11.5-14.5); White Blood Cell Count 9.3 10^3/uL (4.8-10.8)
[2024-05-15] MEDS: NSS 1000 IV ×2 (03:27→09:48)
[2024-05-15] MEDS: DILAUDID 0.5 MG IV ×2 (03:28→06:45)
[2024-05-15] MEDS: PROTONIX IV 40 MG IV (03:28)
[2024-05-15] MEDS: ZOFRAN 4 MG IV (03:28)
[2024-05-15 03:41] LABS: AST (SGOT) 31 U/L (17-59); Albumin 4.6 g/dl (3.5-5.0); Alkaline Phosphatase 68 U/L (38-126); Blood Urea Nitrogen 14 mg/dl (9-20); Calcium 9.5 mg/dl (8.4-10.2); Carbon Dioxide 27 mmol/L (22-30); Estimated Creatinine Clearance 50 ml/min; Glucose 135 mg/dl (70-99); Lactic Acid 2.6 mmol/L (0.7-2.0); Potassium 3.1 mmol/L (3.5-5.1); Total Bilirubin 1.8 mg/dl (0.2-1.3); Total Protein 6.8 g/dl (6.3-8.2); eGFR > 60.00
[2024-05-15 03:50] LABS: ALT (SGPT) 20 U/L (0-50); Chloride 103 mmol/L (98-107); Lipase 68 U/L (23-300); Sodium 138 mmol/L (135-145)
[2024-05-15 04:03] LABS: Troponin I < 0.012 ng/ml
[2024-05-15 04:49] LABS: Urine Albumin Negative (Neg - Trace); Urine Bilirubin Negative (Negative); Urine Character Clear (Clear); Urine Color Yellow; Urine Glucose Negative (Negative); Urine Ketone 1+ (Negative); Urine Leukocyte Negative (Negative); Urine Nitrite Negative (Negative); Urine Occult Blood 3+ (Negative); Urine Urobilinogen Negative (Neg - 1+)
[2024-05-15 05:11] LABS: Urine Bacteria Few (Negative); Urine White Cell 0-2 /HPF (0-5)
--- NOTE | 2024-05-15 06:01 | HPS.HSE ---
Addendum entered and electronically signed by Ricardo Campbell MD 05/15/24 13:40:
US abdomen complete
Negative sonographic [place] sign. No abnormal gallbladder dilation. No shadowing gallbladder calculi. As above, there is echogenic nonshadowing, nonmobile 8 mm focus along the gallbladder wall which could be related to polyp or concretion of biliary
sludge.
Original Note:
Family Physician
-
Family Physician: Saleem Panchal
Chief Complaint
-
acute RUQ pain
History of Present Illness
I could not get any information from the patient as he is [place] only speaker
Information gathered by chart review and speaking with daughter and the ER staff.
HPI
89M [place] Islander only speaker HX PPM implant, Prx AF, HTN, PPM, HX Hep B seen at ER for evaluation of for acute severe RUQ ABDOMINAL PAIN
Acute abdominal pain
- onset at MN
- at RUQ and epigastric area
- associated with nausea and vomiting
- recent diagnosis of hepatitis B, for which he is being treated per daughter.
- He had similar symptoms last month and spent two days in the hospital.
- CT and US of the abdomen was negative during this workup. Labs showed elevated direct bilirubin.
At ER Rx
- IV Dilaudid 0.5mg
- IV Zofran 4mg x 1
- IV Zosyn
Medical History
Past Medical History
Past Medical History: Reports Arrhythmia (PAF), Dementia, HTN, Hypercholesterolemia, Hypothyroidism and Psychiatric (Dementia )
Past Surgical History: Reports Cardiac
Social History
Tobacco: Non-smoker
Alcohol: None
Personal:
Living: With Family
Family History
Family History: Not pertinent
Allergies / Home Medications
Allergies reflects when Allergies were last updated in [email or web address].
Home Medications with original date entered in [email or web address]
Allergy/Medication List:
Allergies
Allergy/AdvReac Type Severity Reaction Status Date / Time
No Known Allergies Allergy Verified 03/16/19 13:18
Home Medications
rivaroxaban 20 mg tablet (Xarelto) 20 mg PO DAILY 02/24/16
tamsulosin 0.4 mg capsule 0.4 mg PO HS 02/24/16
dutasteride 0.5 mg capsule 0.5 mg PO DAILY 04/18/17
acetaminophen 500 mg tablet 500 mg PO BIDPRN PRN mild pain 04/15/24
ascorbic acid (vitamin C) 500 mg tablet 500 mg PO DAILY 04/15/24
carvedilol 3.125 mg tablet 3.125 mg PO BID 04/15/24
cholecalciferol (vitamin D3) 50 mcg (2,000 unit) tablet 50 mcg PO DAILY 04/15/24
cyanocobalamin (vitamin B-12) 1,000 mcg tablet 1,000 mcg PO DAILY 04/15/24
donepezil 10 mg tablet 10 mg PO DAILY 04/15/24
ezetimibe 10 mg tablet 10 mg PO HS 04/15/24
hydrocortisone 2.5 % topical cream with perineal applicator 1 applic topical DAILY 04/15/24
icosapent ethyl 1 gram capsule (Vascepa) 2 g PO BID 04/15/24
lactulose 10 gram/15 mL oral solution (Enulose) 30 ml PO DAILY 04/15/24
levothyroxine 50 mcg tablet 50 mcg PO Q48H alternate w/ 75mcg 04/15/24
levothyroxine 75 mcg tablet 75 mcg PO Q48H alternate w/ 50mcg 04/15/24
meclizine 12.5 mg tablet 12.5 mg PO BID 04/15/24
memantine 7 mg capsule sprinkle,extended release 24hr 7 mg PO DAILY 04/15/24
mirabegron 50 mg tablet,extended release 24 hr (Myrbetriq) 50 mg PO DAILY 04/15/24
pantoprazole 40 mg tablet,delayed release 40 mg PO DAILY 04/15/24
rosuvastatin 10 mg tablet 10 mg PO HS 04/15/24
tramadol 50 mg tablet 50 mg PO BID PRN Pain #10 tabs 04/16/24
Review of Systems
-
Constitutional: Reports No Symptoms
EENT: Reports No Symptoms
Respiratory: Reports No Symptoms
Cardiac: Reports No Symptoms
Abdomen/GI: Reports See HPI, Abdominal Pain and Nausea
: Reports No Symptoms
Musculoskeletal: Reports No Symptoms
Skin: Reports No Symptoms
Neurological: Reports No Symptoms
Endocrine: Reports No Symptoms
Hematologic/Lymphatic: Reports No Symptoms
Psych: Reports No Symptoms
Physical Exam
Vital Signs
Vital Signs
Temp Pulse Resp BP Pulse Ox
97.9 F 66 15 162/75 99
05/15/24 02:33 05/15/24 05:04 05/15/24 05:04 05/15/24 05:04 05/15/24 05:04
Physical Exam
General: No Apparent Distress and Comfortable; No Respiratory Distress
HEENT: NormoCephalic and Moist mucous membranes
Respiratory: Clear; No Wheezes, Rales or Rhonchi
Cardiac: S1/S2 and Regular Rhythm; No Murmur
Breast: Deferred by me
GI: Soft, Non Distended and Tender (RUQ and epigastrium )
Musculoskeletal: No Edema
Skin: Warm, Dry and Rash (vertiligo )
Neuro: Awake, Alert and No Motor Deficits
Psych: Calm
Laboratory Results
-
05/15/24 03:09
05/15/24 03:09
Laboratory Results
Lactic Acid 2.6 mmol/L (0.7-2.0) H 05/15/24 03:09
Total Bilirubin 1.8 mg/dl (0.2-1.3) H 05/15/24 03:09
AST 31 U/L (17-59) 05/15/24 03:09
ALT 20 U/L (0-50) 05/15/24 03:09
Alkaline Phosphatase 68 U/L (38-126) 05/15/24 03:09
Troponin I < 0.012 ng/ml 05/15/24 03:09
Lipase 68 U/L (23-300) 05/15/24 03:09
Data Reviewed
-
CT Scan: Report Reviewed by me
Lab Data: Labs Reviewed by me
Old Records: Reviewed
Impression/Plan
-
Reviewed VS: afebrile BP 160/75
Data
Unremarkable CBC
K 3.1
TB 1.8
nl LFTs except TB 1.8
[address] AP w IV contrast
- slightly distended BG and inflame d refelct cholecystitis
- Hepatic steatosis
Last hospitalist admission: 04/16/24 - 04/17/24 DX; Acute gastroenteritis.
ASSESSMENT & PLAN
CT suggest acute acalculous cholecystitis ?
Acute severe RUQ abdominal pain with N/V with elevated TB
- last dose of Xarelto on 05/14/24 AM
- NPO and IVF
- PRN Narcotic analgesia and anti emetics
- Held Xarelto for now
- Pending abdomen US
- GS consulted
Hypokalemia
- IV KCL Rydel 20 x1
- Trend K
Pre existing conditions:
Prx AF ; on carvedilol and held Xarelto
PPM implant
HLD: Held Rosuvastatin and ezetimibe
Hypothyroid: LT4
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
BPH: on tamsulosin and dutasteride
Depigmented skin on circum oral face , hands ( Vitiligo)
DVT Px: SCD
Code: Full
IP TLM
[2024-05-15] MEDS: ZOSYN 100 IV (06:16)
[2024-05-15] MEDS: KCL 160 MEQ IV (06:48)
[2024-05-15 07:54] LABS: Lactic Acid 1.7 mmol/L (0.7-2.0)
[2024-05-15] MEDS: COREG PO (09:00)
[2024-05-15] MEDS: PROSCAR PO (09:00)
--- NOTE | 2024-05-15 09:28 | CON.GS ---
Addendum entered and electronically signed by Jamaal Gonzalez MD 05/15/24 10:44:
Patient seen and examined in consultation with resident. Agree with documented consultation note with additions noted here.
HPI: 89-year-old male brought to the emergency department overnight by his daughter who he resides with secondary to acute onset of epigastric/right upper quadrant pain nausea vomiting. Daughter states this is the same symptoms that precipitated
hospitalization 04/15/2024 through 04/17/2024. Over the past month his having some intermittent lethargy and anorexia. She also states that he has occasional postprandial discomfort.
Past medical history notable for A-fib, hypertension, hypercholesterolemia, recent diagnosis of hepatitis B for which she is getting ongoing treatment, dementia. No past abdominal surgical history per patient's daughter.
AFVSS
NAD AAO to self; appears quite comfortable lying in hospital bed. Minimally conversant with some very limited [place].
ABD: Soft, no distention, essentially no tenderness on palpation throughout entire abdominal examination. No rebound, no rigidity, no guarding, negative Hinton sign. No palpable mass or swelling in the right upper quadrant.
No scleral icterus or jaundice.
Laboratory testing with normal white blood cell count and no shift, CBC otherwise normal as well. Hypokalemia noted and mild elevation of bilirubin at 1.8 but AST ALT and alkaline phosphatase are normal. Lipase 68.
Reviewed imaging CT abdomen/pelvis as well as ultrasound from this current hospitalization and previous. Gallbladder actually looked more prominent, distended on prior imaging than at this hospital evaluation. New finding on ultrasound is sludge
versus gallbladder polyp.
Assessment/plan: 89-year-old male with episodic right upper quadrant pain, anorexia and possible biliary colic in the setting of ongoing treatment reportedly for hepatitis B.
Clinically low suspicion for acute calculus cholecystitis based on examination and white blood cell count as well as current radiographic imaging
Obtain HIDA scan to confirm visualization of gallbladder and patent biliary tree.
Pending HIDA results also strong consideration of MRCP to evaluate for possible choledocholithiasis as etiology to symptoms as well
Updated patient's daughter reviewed surgical treatment plan.
Original Note:
Consultation
-
Performing Provider: John Sloan MD ; Jamaal Gonzalez MD
Reason for Consultation: Abdominal Pain
Medical History
-
Chief Complaint: Abdominal Pain
History of Present Illness:
Patient is a bulgarian only speaker, History obtained from chart review, nurse and patient's daughter.
89 y/o male with PMHx of dementia, a-fib, sick sinus syndrome with pacemaker, Hyperlipidemia, GERD, hypothyroid, and hepatitis B presenting with RUQ pain since midnight on 05/14. Reportedly patient had similar episode last month and was hospitalized
with Viral gastroenteritis. Patient had nausea and vomited 3x. He noted difficulty breathing secondary to pain. His daughter also states patient has decrease appetite because of current symptoms
CT and US of the abdomen were negative during hospitalization last month. Patient has a history of hepatitis B which he is currently being treated for by a dry ice maker. Pt denies any fevers, flank pain, change in bowel habits, chest pain,
urinary symptoms.
Past Medical History
Past Medical History: Arrhythmias (A fib), HTN and Hypercholesterolemia
Past Surgical History: Cardiac (PPM)
Social History
Tobacco: Non-Smoker
Alcohol: None
Drug: None
Personal:
Living: With Family
Family History
Family History: Reviewed & Not Pertinent
Allergies / Home Medications
Allergy/AdvReac Type Severity Reaction Status Date / Time
No Known Allergies Allergy Verified 05/15/24 02:33
�Medication �Instructions �Recorded �Confirmed �Type
rivaroxaban 20 mg tablet (Xarelto) 20 mg PO DAILY Blood Clot 02/24/16 05/15/24 History
Prevention/Tx
tamsulosin 0.4 mg capsule 0.4 mg PO HS Prostate Issue 02/24/16 05/15/24 History
dutasteride 0.5 mg capsule 0.5 mg PO DAILY Prostate Issues 04/18/17 05/15/24 History
acetaminophen 500 mg tablet 500 mg PO BIDPRN PRN mild pain 04/15/24 05/15/24 History
ascorbic acid (vitamin C) 500 mg 500 mg PO DAILY Supplement 04/15/24 05/15/24 History
tablet
carvedilol 3.125 mg tablet 3.125 mg PO BID Blood Pressure 04/15/24 05/15/24 History
cholecalciferol (vitamin D3) 50 50 mcg PO DAILY Supplement 04/15/24 05/15/24 History
mcg (2,000 unit) tablet
cyanocobalamin (vitamin B-12) 1,000 mcg PO DAILY Supplement 04/15/24 05/15/24 History
1,000 mcg tablet
donepezil 10 mg tablet 10 mg PO DAILY Mental Health 04/15/24 05/15/24 History
ezetimibe 10 mg tablet 10 mg PO HS High Cholesterol 04/15/24 05/15/24 History
hydrocortisone 2.5 % topical cream 1 applic topical DAILY 04/15/24 05/15/24 History
with perineal applicator Anti-Inflammatory
icosapent ethyl 1 gram capsule 2 g PO BID High Cholesterol 04/15/24 05/15/24 History
(Vascepa)
lactulose 10 gram/15 mL oral 30 ml PO DAILYPRN PRN constipation 04/15/24 05/15/24 History
solution (Enulose)
levothyroxine 50 mcg tablet 50 mcg PO Q48H 04/15/24 05/15/24 History
levothyroxine 75 mcg tablet 75 mcg PO Q48H 04/15/24 05/15/24 History
meclizine 12.5 mg tablet 12.5 mg PO BID Neurological 04/15/24 05/15/24 History
Condition
memantine 7 mg capsule 7 mg PO DAILY Neurological 04/15/24 05/15/24 History
sprinkle,extended release 24hr Condition
mirabegron 50 mg tablet,extended 50 mg PO DAILY Urinary Issue 04/15/24 05/15/24 History
release 24 hr (Myrbetriq)
pantoprazole 40 mg tablet,delayed 40 mg PO DAILY Gastrointestinal 04/15/24 05/15/24 History
release Issue
rosuvastatin 10 mg tablet 10 mg PO HS High Cholesterol 04/15/24 05/15/24 History
loperamide 2 mg capsule 2 mg PO Q6HPRN PRN diarrhea 05/15/24 05/15/24 History
tenofovir disoproxil fumarate 300 300 mg PO DAILY 05/15/24 05/15/24 History
mg tablet
Review of Systems
-
History Source: Patient
All other systems: Negative unless noted
A 10 point review of systems was completed, and was negative except as per HPI.
Physical Exam
Vital Signs
Temp Pulse Resp BP Pulse Ox
98.3 F 63 18 156/70 96
05/15/24 08:30 05/15/24 08:30 05/15/24 08:30 05/15/24 08:30 05/15/24 08:30
05/14/24 05/15/24 05/16/24
06:59 06:59 06:59
Actual Weight 87.2 kg
Body Mass Index (BMI) 29.2
Lab Results
05/15/24 03:09
05/15/24 03:09
WBC 9.3 10^3/uL (4.8-10.8) 05/15/24 03:09
Hgb 15.0 g/dL (13.0-18.0) 05/15/24 03:09
Hct 41.8 % (39.0-52.0) 05/15/24 03:09
Plt Count 181 10^3/uL (130-400) 05/15/24 03:09
Abs Immat Gran (auto) 0.0 10^3/uL (0-0.05) 05/15/24 03:09
Neutrophils % 68.9 % (42.2-75.2) 05/15/24 03:09
Physical Exam
General: Well Developed, Well Nourished and No Apparent Distress
GI: Soft, Non Tender and Non Distended
Neuro: Awake and Alert
Data Reviewed
-
CT Scan: Image Personally Visualized and interpreted and Report Reviewed by me
Ultrasound: Image Personally Visualized and interpreted and Discussed with Physician
Labs: Labs Reviewed by me, Discussed with Physician and Discussed with Patient
Total Time Spent with Patient (in minutes): 20
Assessment / Plan
-
89 y.o Male with h/o A fib and on Xarelto( last does 05/14/24) initially presented with upper abdominal pain.
USG: There is echogenic non shadowing, nonmobile 8 mm focus along the gallbladder wall which could be related to polyp or concretion of biliary sludge.
Acute cholecystitis
- Pain resolved without any intervention for now
- benign exam at this time; will get HIDA scan to confirm pathology
- Elevated TB- likely he passed a stone
- pending HIDA scan t/c MRCP
Spoke with the daughter on phone call and answered all questions. She verified understanding.
--- NOTE | 2024-05-15 13:06 | PTCARENOTE ---
pt seen in nuclear medicine for HIDA scan, given Morphine 2mg IV per radiology orders. VSS, 136/65, HR 67, R 16, 97% on RA. Explained to pt using language line, pt verbalizes understanding.
--- NOTE | 2024-05-15 15:39 | PTCARENOTE ---
pt's home health nurse Tracy [phone] would like an update regarding plan for discharge when pt is ready for discharge.
--- NOTE | 2024-05-15 16:23 | W.PN.SURGUPD ---
Surgical Update
Surgical Update
HIDA scan positive for acute cholecystitis with nonvisualization of the gallbladder.
Discussed with patient's daughter via phone call.
Antibiotic therapy alone unlikely to completely resolve given obstructive process.
Given patient's dementia percutaneous cholecystostomy tube drainage would likely be difficult.
Patient's daughter prefers cholecystectomy for definitive management.
He has been added onto the OR schedule for tomorrow 05/16/2024.
Resume Zosyn which was administered in the emergency department
Repeat labs in a.m.
Continue to hold therapeutic anticoagulation
[2024-05-15] MEDS: ZOSYN 50 IV ×2 (17:48→23:11)
[2024-05-15] MEDS: FLOMAX 0.4 MG PO (20:05)
[2024-05-15] MEDS: COREG 3.125 MG PO (20:05)
--- NOTE | 2024-05-15 21:08 | PTCARENOTE ---
Called pt's daughter Mary and asked her to call pt and explain prep for OR which she did. 1st set of antibacterial wipes done, linens changed.
[2024-05-16] VITALS (14 sets, daily range): BP systolic 94–137; BP diastolic 41–81
[2024-05-16] MEDS: NSS 1000 IV ×2 (02:26→17:44)
[2024-05-16] MEDS: ZOSYN 50 IV ×3 (05:09→23:32)
--- NOTE | 2024-05-16 07:24 | W.PN.GS2 ---
Addendum entered and electronically signed by Jamaal Gonzalez MD 05/16/24 10:18:
Patient seen in follow-up independently of resident. Patient's daughter is at bedside.
He reports continued mild discomfort in the right upper quadrant but not as severe as initially.
Lengthy discussions with patient daughter reviewing her father's history and studies consistent with acute calculus cholecystitis with nonvisualization of the gallbladder on HIDA scan yesterday.
We discussed treatment options including percutaneous cholecystostomy tube, antibiotic therapy versus cholecystectomy. Patient's daughter and after discussions wishes to pursue cholecystectomy.
Laparoscopic cholecystectomy intraoperative cholangiogram was reviewed in detail the patient's daughter including the operative technique utilizing diagrams and drawings. We discussed alternative treatment options, benefits and potential risk such
as but not limited to bleeding requiring transfusion, infectious or wound related complications, iatrogenic injury to surrounding viscera, bile duct injury, bile duct leak, postcholecystectomy fatty food intolerances. We discussed the typical
postoperative recovery and hospitalization pending operative findings. Any concerns or questions were fully addressed and written informed consent was obtained through the patient's daughter who is his power of mergers and acquisitions attorney.
Patient on OR schedule today for cholecystectomy
He is now 48 hours out from his last dose of Xarelto
Continue Zosyn
Original Note:
Today's Communication / Plan
-
Lap roxi today
Assessment / Plan
-
89-year-old male with episodic right upper quadrant pain, anorexia and possible biliary colic in the setting of ongoing treatment reportedly for hepatitis B.
HIDA scan positive for acute cholecystitis with nonvisualization of the gallbladder.- AM Labs pending
Acute cholecystitis
-Continue to hold Xarelto for now
-Lap roxi today
-N.p.o. for procedure
-IV Zosyn
-Pain: IV Dilaudid as needed
-
Time Spent
Total Time Spent with Patient (in minutes): 15
Subjective Data
-
Date of Service: May 16, 2024
Interval events: Limited data. Obtained from patient and nurse. Ongoing right upper abdominal pain. No fever. No nausea vomiting
Objective Data
-
Intake and Output
05/15/24 05/16/24 05/17/24
06:59 06:59 06:59
Intake Total 1000 / 1000 1650 / 1650
Output Total 400 / 400 300 / 300
Balance 600 / 600 1350 / 1350
Intake:
IV fluids (Total) 1000 / 1000 1500 / 1500
NS 1000 / 1000
IV piggybacks 150 / 150
Output:
Urine, Voided 400 / 400 300 / 300
Vital Signs
Temp Pulse Resp BP Pulse Ox
99.3 F 62 16 94/41 97
05/16/24 02:51 05/16/24 02:51 05/16/24 02:51 05/16/24 02:51 05/16/24 02:51
Calcium 9.5 mg/dl (8.4-10.2) 05/15/24 03:09
Total Bilirubin 1.8 mg/dl (0.2-1.3) H 05/15/24 03:09
AST 31 U/L (17-59) 05/15/24 03:09
ALT 20 U/L (0-50) 05/15/24 03:09
Alkaline Phosphatase 68 U/L (38-126) 05/15/24 03:09
Total Protein 6.8 g/dl (6.3-8.2) 05/15/24 03:09
Albumin 4.6 g/dl (3.5-5.0) 05/15/24 03:09
Physical Exam
-
General: No apparent distress. Awake and alert
Abdomen: Soft, no distention, mild to moderate tenderness on palpation throughout entire abdominal examination especially in right upper quadrant. No rebound, no rigidity, no guarding, negative Hinton sign. No palpable mass or swelling in the
right upper quadrant.
No scleral icterus or jaundice.
--- NOTE | 2024-05-16 07:58 | W.PN.HOSP.TC ---
Today's Communication/Plan
-
see bold
Assessment / Plan
Assessment / Plan
Gen: NAD, Awake and alert
Eyes: EOMI, PERRLA, no scleral icterus.
Neck: supple.
CV: RRR, +S1/S2, no m/r/g.
Resp: CTAB, no rales, wheezes, or rhonchi.
Abd: +BS, soft, RUQ TTP, ND
Skin: No rashes.
Neuro: CN 2-12 intact, non-focal.
Psych: Normal mood and affect.
Acute cholecystitis
-For cholecystectomy today
-cont Zosyn
-surgery following
Other problems:
Hypokalemia: recheck K
PAF: cont Coreg, Xarelto on hold for OR
h/o PPM
HLD: restart statin/zetia
Hypothyroidism: cont Levoxyl
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
BPH: cont Proscar
Vitiligo
FULL/SCDs
Anticipated Discharge: Within 24 hours
Subjective/Interval History
-
Date of Service: May 16, 2024
No overnight events as per nursing.
Objective Data
-
Labs:
Laboratory Results
05/16/24
06:00
WBC Pending
Hgb Pending
Hct Pending
Plt Count Pending
Sodium Pending
Potassium Pending
Chloride Pending
Carbon Dioxide Pending
BUN Pending
Creatinine Pending
Glucose Pending
Calcium Pending
Total Bilirubin Pending
AST Pending
ALT Pending
Alkaline Phosphatase Pending
Vital Signs:
Vital Signs
Temp Pulse Resp BP Pulse Ox
99.3 F 62 16 94/41 97
05/16/24 02:51 05/16/24 02:51 05/16/24 02:51 05/16/24 02:51 05/16/24 02:51
I&O
05/15/24 05/16/24 05/17/24
06:59 06:59 06:59
Intake Total 1000 / 1000 1650 / 1650
Output Total 400 / 400 300 / 300
Balance 600 / 600 1350 / 1350
--- NOTE | 2024-05-16 10:18 | W.SUR.PREOP ---
Pre-Operative Surgical Note
-
I have examined this patient prior to the performance of the scheduled procedure.
The patient's condition is unchanged from the time of the current History and
Physical and the patient is able to undergo the scheduled procedure.
[2024-05-16 11:48] LABS: Hematocrit 38.7 % (39.0-52.0); Hemoglobin 13.8 g/dL (13.0-18.0); Mean Corp Hgb Conc. 35.7 g/dL (33.0-37.0); Mean Corpuscular Hgb 31.2 pg (27.0-31.0); Mean Corpuscular Volume 87.6 fL (80.0-94.0); Mean Platelet Volume 10.9 fL (7.4-10.4); Platelet Count 139 10^3/uL (130-400); Red Blood Cell Count 4.42 10^6/uL (4.70-6.10); Red Cell Dist. Width 13.3 % (11.5-14.5); White Blood Cell Count 11.1 10^3/uL (4.8-10.8)
[2024-05-16 12:08] LABS: ALT (SGPT) 14 U/L (0-50); AST (SGOT) 26 U/L (17-59); Albumin 3.3 g/dl (3.5-5.0); Alkaline Phosphatase 40 U/L (38-126); Blood Urea Nitrogen 13 mg/dl (9-20); Calcium 8.2 mg/dl (8.4-10.2); Carbon Dioxide 22 mmol/L (22-30); Chloride 105 mmol/L (98-107); Estimated Creatinine Clearance 56 ml/min; Glucose 93 mg/dl (70-99); Lipase 22 U/L (23-300); Potassium 3.3 mmol/L (3.5-5.1); Sodium 134 mmol/L (135-145); Total Bilirubin 4.2 mg/dl (0.2-1.3); Total Protein 5.5 g/dl (6.3-8.2); eGFR > 60.00
[2024-05-16] MEDS: ZOSYN IV (12:18)
--- NOTE | 2024-05-16 14:11 | W.IMMPOSTOP ---
Addendum entered and electronically signed by Jamaal Gonzalez MD 05/21/24 13:47:
#[id number]
Original Note:
Surgical Immed Post Op Note
-
Primary Surgeon: Carlos
Assisting Surgeon: None
Pre-op Diagnosis: Acute calculus cholecystitis
Post-op Diagnosis: Gangrenous acute calculus cholecystitis, choledocholithiasis
Procedure Performed: Laparoscopic cholecystectomy with intraoperative cholangiogram
Laparoscopic transcystic common bile duct exploration
Anesthesia Type: GETA +0.25% Marcaine with epinephrine
Specimen / Cultures: Gallbladder
Estimated Blood Loss: 20 mL
Complications: None immediate
Operative Findings: Gangrenous walled off gallbladder with patchy areas of purulence. Cystic artery identified and controlled with hemoclips. Cystic duct isolated. Intraoperative cholangiogram performed identifying obstructing stone/sludge in the
distal common bile duct. Cholangiocatheter under fluoroscopic guidance into common bile duct and distally until able to manually push stone or sludge through region of ampulla. Completion cholangiogram appeared to be without persistent filling
defects or obstruction. Cystic duct controlled with clips and proximal 0 PDS Endoloop.
Drains: 19 Sánchez drain left in the subhepatic space for postoperative drainage due to gangrenous cholecystitis and monitoring for risk of bile leak
Plan: Clear liquid diet and advance as tolerated to low-fat
Continue Zosyn.
Repeat LFTs tomorrow a.m.
Maintain MELANIE 2 to 3 days postop assuming nonbilious output
Therapeutic anticoagulation should be held for approximately 72 hours postop due to severity of inflammatory reaction and raw surface area
Updated patient's daughter via phone call postop
[2024-05-16] MEDS: COREG PO (17:41)
[2024-05-16] MEDS: PROSCAR 5 MG PO (17:41)
[2024-05-16] MEDS: SYNTHROID 75 MCG PO (17:42)
--- NOTE | 2024-05-16 19:03 | CM ---
met with patient and daughter georgina at bedside.patient is indian speaking only.patient lives withhis daughter in house with [address],his bed and bath is on first floor,he amb with a cane or walker,needs some supervision with akdl.dr griffin is his
pcp and he uses [facility] in [place] for his meds.patient has had a vn through [facility].he has had no ip rehab episodes
pmh:ppm implant/afib,htn,hep b
patient is adm for henrry diane today.he should dc home with no needs.
[2024-05-16] MEDS: NAMENDA 5 MG PO (19:37)
[2024-05-16] MEDS: COREG 3.125 MG PO (19:37)
[2024-05-16] MEDS: OFIRMEV 100 IV (20:24)
[2024-05-16] MEDS: CRESTOR 10 MG PO (21:49)
[2024-05-16] MEDS: ZETIA 10 MG PO (21:49)
[2024-05-16] MEDS: FLOMAX 0.4 MG PO (21:49)
[2024-05-17 03:00] VITALS: BP 128/72
[2024-05-17] MEDS: SYNTHROID 50 MCG PO (05:47)
[2024-05-17] MEDS: ZOSYN 50 IV ×4 (05:47→23:58)
[2024-05-17 07:50] LABS: ALT (SGPT) 49 U/L (0-50); AST (SGOT) 92 U/L (17-59); Albumin 2.9 g/dl (3.5-5.0); Alkaline Phosphatase 53 U/L (38-126); Blood Urea Nitrogen 15 mg/dl (9-20); Calcium 8.4 mg/dl (8.4-10.2); Carbon Dioxide 24 mmol/L (22-30); Chloride 104 mmol/L (98-107); Estimated Creatinine Clearance 56 ml/min; Glucose 126 mg/dl (70-99); Potassium 3.3 mmol/L (3.5-5.1); Sodium 133 mmol/L (135-145); Total Bilirubin 3.2 mg/dl (0.2-1.3); Total Protein 5.1 g/dl (6.3-8.2); eGFR > 60.00
[2024-05-17 07:54] VITALS: BP 128/60
[2024-05-17] MEDS: PROTONIX 40 MG PO (08:20)
[2024-05-17] MEDS: ARICEPT 10 MG PO (08:20)
[2024-05-17] MEDS: NAMENDA 5 MG PO ×2 (08:20→19:37)
[2024-05-17] MEDS: COREG 3.125 MG PO ×2 (08:20→19:36)
[2024-05-17] MEDS: PROSCAR 5 MG PO (08:20)
[2024-05-17] MEDS: VIREAD 300 MG PO (08:20)
[2024-05-17] MEDS: NSS 1000 IV ×2 (08:21→10:30)
[2024-05-17] MEDS: VITAMIN B-12 1000 MCG PO (08:24)
--- NOTE | 2024-05-17 08:51 | W.PN.HOSP.TC ---
Today's Communication/Plan
-
see bold
Assessment / Plan
Assessment / Plan
Gen: NAD, Awake and alert
Eyes: EOMI, PERRLA, no scleral icterus.
Neck: supple.
CV: remains RRR, +S1/S2, no m/r/g.
Resp: CTAB, no rales, wheezes, or rhonchi.
Abd: +BS, soft, NT to light palpation, ND
Skin: No rashes.
Neuro: remains CN 2-12 intact, non-focal.
Psych: Normal mood and affect.
Acute cholecystitis
-s/p cholecystectomy on 05/16/24 for Gangrenous acute calculus cholecystitis, choledocholithiasis
-cont Zosyn
-surgery following
-currently on clears
Other problems:
Hypokalemia: 40meq PO K
PAF: cont Coreg, Xarelto was on hold for OR. Will d/w surgery timing of Xarelto restart.
h/o PPM
HLD: cont statin/zetia
Hypothyroidism: cont Levoxyl
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
BPH: cont Proscar
Vitiligo
Hyponatremia
FULL/SCDs
Anticipated Discharge: 24 - 48 hours
Subjective/Interval History
-
Date of Service: May 17, 2024
No new events.
Objective Data
-
Labs:
Laboratory Results
05/17/24
06:33
WBC Pending
Hgb Pending
Hct Pending
Plt Count Pending
Sodium 133 L
Potassium 3.3 L
Chloride 104
Carbon Dioxide 24
BUN 15
Creatinine 0.9
Glucose 126 H
Calcium 8.4
Total Bilirubin 3.2 H
AST 92 H
ALT 49
Alkaline Phosphatase 53
Vital Signs:
Vital Signs
Temp Pulse Resp BP Pulse Ox
97.5 F 73 14 128/60 96
05/17/24 07:54 05/17/24 07:54 05/17/24 07:54 05/17/24 07:54 05/17/24 07:54
I&O
05/16/24 05/17/24 05/18/24
06:59 06:59 06:59
Intake Total 1650 / 1650 2019 / 2019
Output Total 300 / 300 1590 / 1590
Balance 1350 / 1350 430 / 430
[2024-05-17 09:01] LABS: Hematocrit 36.5 % (39.0-52.0); Mean Corp Hgb Conc. 35.6 g/dL (33.0-37.0); Mean Corpuscular Volume 86.9 fL (80.0-94.0); Mean Platelet Volume 10.8 fL (7.4-10.4); Platelet Count 127 10^3/uL (130-400); Red Cell Dist. Width 13.4 % (11.5-14.5); White Blood Cell Count 11.3 10^3/uL (4.8-10.8)
[2024-05-17] MEDS: KCL 40 MEQ PO (10:30)
[2024-05-17 11:12] VITALS: BP 138/88
--- NOTE | 2024-05-17 11:38 | W.PN.GS2 ---
Today's Communication / Plan
-
Advance to LFD
Hold Xarelto x72 hours post op
Assessment / Plan
-
89-year-old male with h/o tx for hep b presenting with RUQ pain now POD #1 lap roxi for gangrenous acc. Cholangiogram with choledocholithiasis but cbd exploration for clearance of stones
AFVSS
MELANIE with SSF- nonbilious
LFT's trending down post op
Tolerating clears
--Advance to LFD
--Continue to trend labs/exams
--Follow MELANIE outputs, continues with nonbilious drainage. Anticipate we will be able to remove drain prior to d/c
--Hold therapeutic AC x72 hours after surgery (tentative resumption sunday if h/h stable)
--Continue abx x5-7 days post op. Will continue with IV while inpatient and transition to PO augmentin with d/c
--OOB/Ambulate
--PRN analgesics
--Lovenox sq while therapeutic AC on hold, SCD's while in bed
Subjective Data
-
Date of Service: May 17, 2024
Patient seen and examined at bedside with Dr. Wray using telephone hourly sign language interpreter 2000 'richie'. Some RUQ soreness. Denies nausea. Would like to eat something solid.
Objective Data
-
Intake and Output
05/16/24 05/17/24 05/18/24
06:59 06:59 06:59
Intake Total 1650 / 1650 2019 / 2019
Output Total 300 / 300 1590 / 1590
Balance 1350 / 1350 430 / 430
Intake:
Oral fluids 420 / 420
IV fluids (Total) 1500 / 1500 1400 / 1400
IV piggybacks 150 / 150 200 / 200
Output:
Drain Output (Total) 40 / 40
Right Abdomen Bharat-Buck 40 / 40
Urine, Voided 300 / 300 1550 / 1550
Other:
Number of approximated MODERATE 1
amounts of urine
Vital Signs
Temp Pulse Resp BP Pulse Ox
97.5 F 73 14 128/60 96
05/17/24 07:54 05/17/24 07:54 05/17/24 07:54 05/17/24 07:54 05/17/24 07:54
Lab Results
05/17/24 06:33
05/17/24 06:33
Calcium 8.4 mg/dl (8.4-10.2) 05/17/24 06:33
Total Bilirubin 3.2 mg/dl (0.2-1.3) H 05/17/24 06:33
AST 92 U/L (17-59) H 05/17/24 06:33
ALT 49 U/L (0-50) 05/17/24 06:33
Alkaline Phosphatase 53 U/L (38-126) 05/17/24 06:33
Total Protein 5.1 g/dl (6.3-8.2) L 05/17/24 06:33
Albumin 2.9 g/dl (3.5-5.0) L 05/17/24 06:33
Physical Exam
-
NAD
ABD soft, mild distention, incisional tenderness (mild)
MELANIE with SSF (nonbilious), incisions well approximated with intact glue
[2024-05-17] MEDS: ROXICODONE 5 MG PO ×2 (14:07→21:33)
[2024-05-17 15:56] VITALS: BP 122/69
[2024-05-17 19:15] VITALS: BP 144/74
[2024-05-17] MEDS: CRESTOR 10 MG PO (21:33)
[2024-05-17] MEDS: FLOMAX 0.4 MG PO (21:33)
[2024-05-17] MEDS: ZETIA 10 MG PO (21:33)
[2024-05-17 23:10] VITALS: BP 141/81
[2024-05-18 03:25] VITALS: BP 124/82
[2024-05-18] MEDS: ZOSYN 50 IV ×3 (05:37→17:00)
[2024-05-18] MEDS: SYNTHROID 75 MCG PO (06:26)
[2024-05-18 06:39] LABS: Hematocrit 33.9 % (39.0-52.0); Hemoglobin 12.2 g/dL (13.0-18.0); Mean Corpuscular Hgb 31.3 pg (27.0-31.0); Mean Corpuscular Volume 86.9 fL (80.0-94.0); Mean Platelet Volume 11.5 fL (7.4-10.4); Platelet Count 158 10^3/uL (130-400); Red Cell Dist. Width 13.6 % (11.5-14.5); White Blood Cell Count 11.4 10^3/uL (4.8-10.8)
[2024-05-18 07:00] LABS: ALT (SGPT) 46 U/L (0-50); AST (SGOT) 75 U/L (17-59); Albumin 2.9 g/dl (3.5-5.0); Alkaline Phosphatase 55 U/L (38-126); Blood Urea Nitrogen 17 mg/dl (9-20); Calcium 8.1 mg/dl (8.4-10.2); Carbon Dioxide 25 mmol/L (22-30); Chloride 106 mmol/L (98-107); Estimated Creatinine Clearance 56 ml/min; Glucose 105 mg/dl (70-99); Potassium 3.9 mmol/L (3.5-5.1); Sodium 135 mmol/L (135-145); Total Bilirubin 1.9 mg/dl (0.2-1.3); Total Protein 5.2 g/dl (6.3-8.2); eGFR > 60.00
[2024-05-18 08:02] VITALS: BP 159/78
[2024-05-18] MEDS: PROTONIX 40 MG PO (08:18)
[2024-05-18] MEDS: COREG 3.125 MG PO ×2 (08:18→20:30)
[2024-05-18] MEDS: VITAMIN B-12 1000 MCG PO (08:18)
[2024-05-18] MEDS: NAMENDA 5 MG PO ×2 (08:18→20:30)
[2024-05-18] MEDS: ARICEPT 10 MG PO (08:18)
[2024-05-18] MEDS: VIREAD 300 MG PO (08:18)
[2024-05-18] MEDS: PROSCAR 5 MG PO (08:18)
--- NOTE | 2024-05-18 09:52 | W.PN.HOSP.TC ---
Today's Communication/Plan
-
Continue postoperative management per surgeon
Holding Xarelto 72 hours postop
Add Lovenox subcu
Continue antibiotics
Assessment / Plan
Assessment / Plan
Used [place]e language line science interpreter-Joanne
CVS: S1-S2 irregular
Chest: CTA B/L
Abdomen: Laparoscopic wounds and a MELANIE drain. Bowel sounds appreciated
Extremities: No edema, normal pulses
#Acute cholecystitis
-s/p cholecystectomy on 05/16/24 for Gangrenous acute calculus cholecystitis, choledocholithiasis
-Cont Zosyn
-Surgery following
-Slightly elevated transaminases-improving
-Advancing to low-fat diet.
-Possible drain removal tomorrow prior to discharge.
-Holding anticoagulation until cleared by surgeon
Other problems:
Hypokalemia: Resolved
PAF: Cont Coreg, Xarelto on hold . Will d/w surgery timing of Xarelto restart.
H/O PPM
HLD: Cont statin/Zetia
Hypothyroidism: Cont Levoxyl
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
BPH: cont Proscar . Microscopic hematuria. Needs outpatient follow-up
Hepatitis B- On Tenofovir
Vitiligo
Hyponatremia
Hypoalbuminemia
Nephrolithiasis
FULL CODE
DVT Prophylaxis-SCDs,Lovenox.
Anticipated Discharge: Within 24 hours
Subjective/Interval History
-
Date of Service: May 18, 2024
Objective Data
-
Labs:
Laboratory Results
05/18/24
05:30
WBC 11.4 H
Hgb 12.2 L
Hct 33.9 L
Plt Count 158 D
Sodium 135
Potassium 3.9
Chloride 106
Carbon Dioxide 25
BUN 17
Creatinine 0.9
Glucose 105 H
Calcium 8.1 L
Total Bilirubin 1.9 H D
AST 75 H
ALT 46
Alkaline Phosphatase 55
Vital Signs:
Vital Signs
Temp Pulse Resp BP Pulse Ox
97.2 F 61 15 125/77 96
05/18/24 08:02 05/18/24 08:18 05/18/24 08:02 05/18/24 08:18 05/18/24 08:02
I&O
05/17/24 05/18/24 05/19/24
06:59 06:59 06:59
Intake Total 2019 / 2019 920 / 920
Output Total 1590 / 1590 1305 / 1305 350 / 350
Balance 430 / 430 -385 / -385 -350 / -350
[2024-05-18] MEDS: ROXICODONE 5 MG PO ×2 (11:02→17:04)
[2024-05-18 11:19] VITALS: BP 156/84
--- NOTE | 2024-05-18 11:39 | W.PN.GS2 ---
Today's Communication / Plan
-
c/w MELANIE
c/w abx
Trend labs
Assessment / Plan
-
89-year-old male with h/o tx for hep b presenting with RUQ pain now POD #2 lap roxi for gangrenous acc. Cholangiogram with choledocholithiasis but cbd exploration for clearance of stones
AFVSS
MELANIE with SSF- nonbilious
LFT's continue trending down post op
WBC still mildly elevated
Tolerating diet
--Advance to LFD
--Continue to trend labs/exams
--Follow MELANIE outputs, continues with nonbilious drainage. Anticipate we will be able to remove drain prior to d/c
--Hold therapeutic AC x72 hours after surgery (tentative resumption sunday if h/h stable)
--Continue abx x5-7 days post op. Will continue with IV while inpatient and transition to PO augmentin with d/c
--OOB/Ambulate
--PRN analgesics
--Lovenox sq while therapeutic AC on hold, SCD's while in bed
Subjective Data
-
Date of Service: May 18, 2024
Patient seen and examined at bedside with Dr. Wray. Telephone Barbadian translator/interpreter [id number] utilized. He notes some residual pain to the RUQ. Denies n/v.
Objective Data
-
Intake and Output
05/17/24 05/18/24 05/19/24
06:59 06:59 06:59
Intake Total 2019 920 / 920
Output Total 1590 / 1590 1305 / 1305 600 / 600
Balance 430 / 430 -385 / -385 -600 / -600
Intake:
Oral fluids 420 / 420 920 / 920
IV fluids (Total) 1400 / 1400
IV piggybacks 200 / 200
Output:
Drain Output (Total) 40 / 40 45 / 45
Right Abdomen Bharat-Buck
Urine, Voided 1550 / 1550 1260 / 1260 600 / 600
Other:
Number of approximated MODERATE 1
amounts of urine
Vital Signs
Temp Pulse Resp BP Pulse Ox
97.2 F 61 15 125/77 96
05/18/24 08:02 05/18/24 08:18 05/18/24 08:02 05/18/24 08:18 05/18/24 08:02
Lab Results
05/18/24 05:30
05/18/24 05:30
Calcium 8.1 mg/dl (8.4-10.2) L 05/18/24 05:30
Total Bilirubin 1.9 mg/dl (0.2-1.3) H D 05/18/24 05:30
AST 75 U/L (17-59) H 05/18/24 05:30
ALT 46 U/L (0-50) 05/18/24 05:30
Alkaline Phosphatase 55 U/L (38-126) 05/18/24 05:30
Total Protein 5.2 g/dl (6.3-8.2) L 05/18/24 05:30
Albumin 2.9 g/dl (3.5-5.0) L 05/18/24 05:30
Physical Exam
-
NAD
ABD soft, mild distention, incisional tenderness (mild)
MELANIE with SSF (nonbilious), incisions well approximated with intact glue
[2024-05-18 14:58] VITALS: BP 126/88
[2024-05-18] MEDS: LOVENOX 40 MG SC (17:00)
[2024-05-18 19:03] VITALS: BP 127/55
[2024-05-18] MEDS: CRESTOR 10 MG PO (21:50)
[2024-05-18] MEDS: ZETIA 10 MG PO (21:50)
[2024-05-18] MEDS: MIRALAX 17 GRAMS PO (21:50)
[2024-05-18] MEDS: FLOMAX 0.4 MG PO (21:50)
[2024-05-18 23:01] VITALS: BP 124/60
[2024-05-19] MEDS: ZOSYN 50 IV ×2 (00:23→05:26)
[2024-05-19 03:08] VITALS: BP 150/68
[2024-05-19] MEDS: SYNTHROID 50 MCG PO (05:48)
[2024-05-19 06:50] LABS: Hematocrit 38.1 % (39.0-52.0); Hemoglobin 13.4 g/dL (13.0-18.0); Mean Corp Hgb Conc. 35.2 g/dL (33.0-37.0); Mean Corpuscular Hgb 31.4 pg (27.0-31.0); Mean Corpuscular Volume 89.2 fL (80.0-94.0); Mean Platelet Volume 9.8 fL (7.4-10.4); Platelet Count 144 10^3/uL (130-400); Red Blood Cell Count 4.27 10^6/uL (4.70-6.10); Red Cell Dist. Width 13.5 % (11.5-14.5); White Blood Cell Count 8.5 10^3/uL (4.8-10.8)
--- NOTE | 2024-05-19 07:03 | W.PN.GS2 ---
Addendum entered and electronically signed by Uday Anderson MD 05/19/24 08:32:
Patient seen and examined.
Reports discomfort within RIGHT abdomen with palpation overlying area of drain. Denies worsening abdominal pain. No nausea or vomiting. No fevers.
Gen: NAD
Abd: soft, minimal tenderness, ND, non-peritoneal, incisions c/d/i - mild reactive erythema, no ecchymosis or drainage, MELANIE serosang, non-bilious
Patient is a 89 yo M POD #3 lap roxi with IOC and LCBDE
Afebrile
MELANIE with SSF- nonbilious
LFT's and bili continue trending down post op
Leukocytosis resolved
Tolerating low fat diet
- LFD
- MELANIE continues with nonbilious drainage removed today at bedside
- Resumption of OAC today (post x72 hours after surgery)
- Continue abx x5-7 days post op. Will continue with IV while inpatient ( IV ZOSYN day 5) and transition to PO Augmentin with d/c
- OOB/ambulate
- Miralax daily
- Home medications
- Pain control: Tylenol and Oxycodone
- DVT: Lovenox and SCD's while in bed
- GI: home PPI
- OK for DC today from GS perspective
Original Note:
Today's Communication / Plan
-
Resumption of OAC today
d/c today
Assessment / Plan
-
89-year-old male with h/o tx for hep b presented with RUQ pain now POD #3 lap roxi for Gangrenous acute calculus cholecystitis. Cholangiogram with choledocholithiasis, CBD exploration for clearance of stones
Afebrile
MELANIE with SSF- nonbilious
LFT's continue trending down post op
Leukocytosis resolved
Tolerating low fat diet
- MELANIE continues with nonbilious drainage removed today at bedside
- Resumption of OAC today ( post x72 hours after surgery)
- Continue abx x5-7 days post op. Will continue with IV while inpatient ( IV ZOSYN day 5) and transition to PO augmentin with d/c
- Patient able to Ambulate without discomfort
- PRN analgesics
- SCD's while in bed
Time Spent
Total Time Spent with Patient (in minutes): 15
Subjective Data
-
Date of Service: May 19, 2024
Patient reports some residual pain to the RUQ. Denies n/v.
Objective Data
-
Intake and Output
05/18/24 05/19/24 05/20/24
06:59 06:59 06:59
Intake Total 920 / 920 1960 / 1960
Output Total 1305 / 1305 610 / 610
Balance -385 / -385 1350 / 1350
Intake:
Oral fluids 920 / 920 1860 / 1860
IV piggybacks 100 / 100
Output:
Drain Output (Total) 45 / 45 10 10
Right Abdomen Bharat-Buck 45 / 45 10 / 10
Urine, Voided 1260 / 1260 600 / 600
Other:
Number of approximated MODERATE 4
amounts of urine
Vital Signs
Temp Pulse Resp BP Pulse Ox
97.3 F 65 16 150/68 97
05/19/24 03:08 05/19/24 03:08 05/19/24 03:08 05/19/24 03:08 05/19/24 03:08
Lab Results
05/19/24 06:34
Calcium 8.1 mg/dl (8.4-10.2) L 05/18/24 05:30
Total Bilirubin 1.9 mg/dl (0.2-1.3) H D 05/18/24 05:30
AST 75 U/L (17-59) H 05/18/24 05:30
ALT 46 U/L (0-50) 05/18/24 05:30
Alkaline Phosphatase 55 U/L (38-126) 05/18/24 05:30
Total Protein 5.2 g/dl (6.3-8.2) L 05/18/24 05:30
Albumin 2.9 g/dl (3.5-5.0) L 05/18/24 05:30
Physical Exam
-
General: No apparant distress
Abdomen: soft, mild distention, incisional tenderness (mild)
MELANIE with SSF (nonbilious), incisions well approximated with intact glue
[2024-05-19 07:25] VITALS: BP 154/87
[2024-05-19 07:36] LABS: ALT (SGPT) 44 U/L (0-50); AST (SGOT) 60 U/L (17-59); Albumin 3.2 g/dl (3.5-5.0); Alkaline Phosphatase 66 U/L (38-126); Blood Urea Nitrogen 16 mg/dl (9-20); Calcium 8.4 mg/dl (8.4-10.2); Carbon Dioxide 29 mmol/L (22-30); Chloride 103 mmol/L (98-107); Estimated Creatinine Clearance 56 ml/min; Glucose 88 mg/dl (70-99); Potassium 3.6 mmol/L (3.5-5.1); Sodium 135 mmol/L (135-145); Total Bilirubin 1.6 mg/dl (0.2-1.3); Total Protein 5.3 g/dl (6.3-8.2); eGFR > 60.00
[2024-05-19] MEDS: ARICEPT 10 MG PO (07:58)
[2024-05-19] MEDS: VIREAD 300 MG PO (07:58)
[2024-05-19] MEDS: PROTONIX 40 MG PO (07:58)
[2024-05-19] MEDS: PROSCAR 5 MG PO (07:58)
[2024-05-19] MEDS: COREG 3.125 MG PO (07:58)
[2024-05-19] MEDS: NAMENDA 5 MG PO (07:58)
[2024-05-19] MEDS: VITAMIN B-12 1000 MCG PO (07:58)
[2024-05-19 09:15] VITALS: BP 139/84; PULSE 64
[2024-05-19 09:20] VITALS: BP 139/84; PULSE 64; O2SAT 98
--- NOTE | 2024-05-19 09:52 | PTOTSP ---
The patient is independent with ambulation and elevations, no mobility deficits noted. No PT needs identified at this time, will sign off.
--- NOTE | 2024-05-19 10:08 | PTOTSP ---
pt currently demonstrates ability to complete simple ADLs, functional transfers, ambulation. pt able to follow direction, make needs known. no acute OT needs identified, will sign off at this time.
--- NOTE | 2024-05-19 11:10 | W.PN.HOSP.TC ---
Addendum entered and electronically signed by Ken Fisher MD 05/19/24 11:22:
Called daughter to update response unable to leave voicemail.
Called son no response left voicemail with instruction patient given discharged home.
Original Note:
Today's Communication/Plan
-
dc
po abx
Assessment / Plan
Assessment / Plan
#Acute cholecystitis
-s/p cholecystectomy on 05/16/24 for Gangrenous acute calculus cholecystitis, choledocholithiasis
-Cont Zosyn switched to Augmentin on discharge.
-Surgery following
-Slightly elevated transaminases-improving
-Advancing to low-fat diet.
-Status post MELANIE drain removal earlier today.
-Okay to restart Xarelto tonight
Other problems:
Hypokalemia: Resolved
PAF: Cont Coreg, Xarelto
H/O PPM
HLD: Cont statin/Zetia
Hypothyroidism: Cont Levoxyl
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
BPH: cont Proscar . Microscopic hematuria. Needs outpatient follow-up
Hepatitis B- On Tenofovir
Vitiligo
Hyponatremia
Hypoalbuminemia
Nephrolithiasis
FULL CODE
DVT Prophylaxis-SCDs,Lovenox.
Discussed with surgery okay for discharge
More than 30 minutes spent in discharge including
Final examination of the patient
Summarizing hospital stay
Instructions for continuing care to all relevant caregivers
Preparation of discharge records, prescriptions, and referral forms
Total time spent (in minutes): 52
Anticipated Discharge: Today
Subjective/Interval History
-
Date of Service: May 19, 2024
Seen and examined using question crane engineer [id number]
Patient states some mild abdominal soreness
Denies any nausea vomiting
Tolerating diet
Objective Data
-
Labs:
Laboratory Results
05/19/24
06:34
WBC 8.5
Hgb 13.4
Hct 38.1 L
Plt Count 144
Sodium 135
Potassium 3.6
Chloride 103
Carbon Dioxide 29
BUN 16
Creatinine 0.9
Glucose 88
Calcium 8.4
Total Bilirubin 1.6 H
AST 60 H
ALT 44
Alkaline Phosphatase 66
Vital Signs:
Vital Signs
Temp Pulse Resp BP Pulse Ox
97.3 F 64 14 154/87 97
05/19/24 03:08 05/19/24 07:25 05/19/24 07:25 05/19/24 07:25 05/19/24 07:25
I&O
05/18/24 05/19/24 05/20/24
06:59 06:59 06:59
Intake Total 920 / 920 1960 / 1960
Output Total 1305 / 1305 610 / 610
Balance -385 / -385 1350 / 1350
Physical Exam
-
General: Well Developed and No Apparent Distress
HEENT: Normocephalic, Atraumatic and Moist Mucous Membranes
Respiratory: Clear to Auscultation
Cardiac: Regular Rhythm and S1/S2; Negative Murmur, Rub or Gallop
GI: Soft, Nondistended, Normal Bowel Sounds and Other (Mild tenderness in the upper quadrants mostly on the right side.); Negative Organomegaly
Rectal: Deferred by Provider
Musculoskeletal: No Clubbing, No Cyanosis and No Edema
Skin: Negative Rash
Neuro: Awake and Nonfocal/Grossly Intact
[2024-05-19 11:20] VITALS: BP 146/80
--- NOTE | 2024-05-19 11:22 | W.DCSUMMARY ---
Discharge Summary
Discharge Data
Date of Admission: 05/15/24
Date of Discharge: 05/19/24
-
Pending Results: No
Hospital Course
89-year-old male past medical history of atrial fibrillation status post pacemaker, hyperlipidemia hypothyroidism suspected cognitive disorder, BPH, hepatitis B, tobacco who is here with abdominal pain. Patient was found to acute calculus
cholecystitis. Underwent to the operating room and was seen advised by general surgery. Operative finding of gangrenous acute calculus cholecystitis and choledocholithiasis status post laparoscopic cholecystectomy with intraoperative cholangiogram
and laparoscopic [place] cystic common bile duct exploration. Patient liver function improved. Postop patient was continued on IV antibiotics. MELANIE drain was placed in the OR and was taken out prior to discharge. Patient was tolerating diet. Patient
be transition from IV Zosyn to p.o. antibiotics on discharge. Patient need to follow-up postop with general surgery.
Discharge Plan
-
Patient Disposition: Home with Home Care
Discharge Diagnosis/Procedures: Acute calculus cholecystitis, choledocholithiasis status post laparoscopic cholecystectomy
Condition: Fair
Diet: Low Fat
Activity: No strenuous activity
Bathing Restrictions: OK to Shower
Other Services: VN
Wound Care: Cover the area where your drain was with a dry gauze dressing and change daily after showering until drainage no longer present
Activity Restrictions/Additional Instructions:
Post-Operative Instructions for Gallbladder Surgery
The incision sites are sealed with a surgical glue dressing.� It is safe to shower at any time after surgery when the glue is dry.� Let shower water run over the incisions and then pat dry.
Glue dressing typically peels off in 2-3 weeks.
Abdominal/incisional pain and discomfort, shoulder/scapular pain, bloating, and mild nausea, as well as bruising/stiffness and swelling at the incision sites are common after surgery.� If felt to be excessive, notify us.
Please start postoperative pain management using over the counter medications such as Tylenol and Ibuprofen, per instructions on the bottle, as long as there are no medical reasons why you cannot take these medications.
Ice the incisions sites for 20 minutes every hour or so to help with postoperative incisional pain and reduce postoperative surgical site swelling.� Take care NOT to get an ice burn on the skin surface.
A warm heating pad is often helpful to alleviate shoulder/scapular back pains after laparoscopic procedures.� This pain typically dissipates 24-72hrs post op.
Transition to a low fat diet as tolerated after surgery if not experiencing postoperative nausea or significant bloating/distention.� Some fatty food intolerance may occur shortly after surgery (cramps,bloating, nausea,diarrhea with fat intake).
Constipation is common following surgery and postoperative narcotic use.� May use a stool softener such as Colace (100 mg 2x day) to prevent constipation
If no BM 24hrs after surgery, recommend starting daily Miralax
If no BM in 24-48hrs after starting Miralax --> recommend then using a dose of magnesium citrate or milk of magnesia with a Senokot tablet to help alleviate post operative constipation as long as there is no nausea/vomiting and passing gas.
Resume all preoperative medications as prescribed, unless directed otherwise.
Do not drive or drink alcohol for 24 hrs after having anesthesia or while taking narcotic pain medications.
Resume regular daily light activities, such as walking, standing and going up/down stairs as tolerated within 24hrs of surgery.� Please refrain from lifting over 20 lbs or strenuous exercise until postoperative follow up visit &/or approximately
3-4 weeks.�
Call the office with a fever above 101� F, nausea with vomiting, severe abdominal pain, yellowing of skin or eyes, spreading redness and drainage from incision sites or with any concerns/questions.
If not arranged prior to surgery, please call the office to schedule or confirm your 10-14 day postoperative surgical follow-up office visit with Dr. Gonzalez.
Repeat urinalysis as outpatient to rule out blood in the urine. Follow-up with your urologist.
Referrals:
Saleem Panchal MD [Family Provider] - in less than 1 week
Jamaal Gonzalez MD [Active] - in two to four weeks
Prescriptions:
New
oxycodone 5 mg Tablet
5 mg PO TIDPRN PRN (Reason: severe pain) Qty: 12 0RF
polyethylene glycol 3350 [HealthyLax] 17 gram Powder In Packet
17 g PO HS Qty: 14 0RF
amoxicillin-pot clavulanate 875-125 mg tablet
1 tab PO BID Qty: 10 0RF
Continued
tamsulosin 0.4 MG capsule
0.4 mg PO HS
Xarelto 20 MG tablet
20 mg PO DAILY
dutasteride 0.5 MG capsule
0.5 mg PO DAILY
donepezil 10 mg tablet
10 mg PO DAILY
cyanocobalamin (vitamin B-12) 1,000 mcg Tablet
1,000 mcg PO DAILY
meclizine 12.5 mg tablet
12.5 mg PO BID
acetaminophen 500 mg Tablet
500 mg PO BIDPRN PRN (Reason: mild pain)
carvedilol 3.125 mg tablet
3.125 mg PO BID
levothyroxine 75 mcg tablet
75 mcg PO Q48H
Patient Comments:
05/15/24: alternate w/ 50mcg
hydrocortisone 2.5 % cream with perineal applicator
1 applic topical DAILY
ascorbic acid (vitamin C) 500 mg Tablet
500 mg PO DAILY
levothyroxine 50 mcg tablet
50 mcg PO Q48H
Patient Comments:
05/15/24: alternate w/ 75mcg
pantoprazole 40 mg tablet,delayed release (DR/EC)
40 mg PO DAILY
ezetimibe 10 mg tablet
10 mg PO HS
rosuvastatin 10 mg tablet
10 mg PO HS
lactulose [Enulose] 10 gram/15 mL solution
30 ml PO DAILYPRN PRN (Reason: constipation)
cholecalciferol (vitamin D3) 50 mcg (2,000 unit) Tablet
50 mcg PO DAILY
mirabegron [Myrbetriq] 50 mg tablet extended release 24 hr
50 mg PO DAILY
icosapent ethyl [Vascepa] 1 gram capsule
2 g PO BID
memantine 7 mg capsule,sprinkle,ER 24hr
7 mg PO DAILY
tenofovir disoproxil fumarate 300 mg Tablet
300 mg PO DAILY
Discontinued
loperamide 2 mg Capsule
2 mg PO Q6HPRN PRN (Reason: diarrhea)
Discharge Orders:
Discharge Patient (As Directed); Ordered 05/19/24
Ordered By: Ken Fisher
Discharge Date and Time
Discharge Date/Time: 05/19/24 12:35
Print Language: DIVEHI
--- NOTE | 2024-05-19 13:08 | CM ---
Patient has been medically cleared for discharge to home with VN services with [facility]. Patient has arranged for transport home.
== END 2024-05-19 12:35 | disposition home health service (06) | DRG 418 ==
LOC: 2 SOUTH 06:22
PROVIDERS: Registered Nurse; ADMITTING PHYSICIAN Internal Medicine; ATTENDING PHYSICIAN Hospitalist; CONSULT PHYSICIAN Surgery; EMERGENCY PHYSICIAN Emergency Medicine; FAMILY PHYSICIAN Internal Medicine
PROC: 0FT44ZZ Resection of Gallbladder, Percutaneous Endoscopic Approach (ICD-10-PCS; 2024-05-16)
PROC: BF141ZZ Fluoroscopy of Gallbladder, Bile Ducts and Pancreatic Ducts using Low Osmolar Contrast (ICD-10-PCS; 2024-05-16)
DX: K80.62 Calculus of gallbladder and bile duct with acute cholecystitis without obstruction (principal); B19.10 Unspecified viral hepatitis B without hepatic coma; K82.A1 Gangrene of gallbladder in cholecystitis
CPT/HCPCS: 88304; 74177; 74300; 76000; 76700; 78226; 80053; 81003; 81015; 83605; 83690; 84484; 85025; 85027; 93005; 96361; 96374; 96375; 97161; 97165; 99285; A4300; A9537; J1610; Q9967

== ENCOUNTER 2024-11-05 03:16 | Inpatient (IN) | payer MEDICARE, OTHER, SELFPAY ==
[2024-11-04 16:36] VITALS: BP 120/59
--- NOTE | 2024-11-04 16:50 | ED.GENMED ---
ED Provider Triage
<Joanne Antony LABORATORY SAMPLER - Last Filed: 11/04/24 16:57>
-
Patient seen by provider in Triage?: Seen in Triage
Attestation: A medical screening examination has been initiated by a qualified medical provider. Based on the assessment performed at this time, it has been determined that an emergent medical condition may exist and the patient has been informed
that further medical evaluation and possible additional diagnostic testing may be needed.
HPI: 89-year-old male with history of A-fib on Xarelto, HLD, pacemaker, GERD, hep B, BPH, hypothyroid, cholecystectomy, dementia, granddaughter, (he speaks only Maltese) Tech Nakia in room to help translate. Granddaughter states he is here been
throwing up since last night, shaking a lot, no diarrhea, he seems more confused than usual and talking to himself which is unusual, last emesis was 45 minutes ago. Patient denies headache now, denies abdominal pain,
GENERAL: Alert , in no apparent distress
EYE: No visual abnormalities.
NECK: Trachea midline
ENT: No visible abnormalities.
LUNGS: No acute respiratory distress
NEUROLOGICAL: Alert and oriented
SKIN: Skin intact. No visible changes.
MUSCULOSKELETAL: Moving extremities normally
PSYCH: Normal and appropriate interaction.
This is a medical evaluation conducted in person to initiate diagnostic evaluation and provide initial therapeutics. Please see further documentation by the treating clinician.
History of Present Illness
<Joanne Antony LABORATORY SAMPLER - Last Filed: 11/04/24 16:57>
General
Chief Complaint: Abdominal Symptoms
Time Seen by Provider: 11/04/24 22:05
<Denice Mello PA-C - Last Filed: 11/05/24 03:36>
General
Source: patient and family (Patient's daughter at bedside translating)
Exam Limitations: altered mental status
Nursing documentation reviewed up to this point in time: agreed with
History of Present Illness
History of Present Illness:
Patient is an 89-year-old male with history atrial fibrillation on Xarelto, dementia,with pacemaker presenting to the emergency department with daughter for evaluation of weaknesss and vomiting. Patient unable to contribute much to history given
dementia. patient's daughter at bedside translating, as well.
Patient's daughter states that she lives with her father and when she went to see him around breakfast time he seemed mildly confused and very weak. He then told her that he had vomited. Patient's daughter states that her father seemed extremely
weak all day and laid around the couch. Daughter states that dad was shaking violently earlier today, as well. He also had a few other episodes of vomiting.
At this time�patient reports some mild abdominal pain. No history of fevers. No chest pain or shortness of breath. No constipation or diarrhea.
Of note�patient did start Macrobid yesterday for a UTI. She reports that urine specimen was obtained on Sunday and she was contacted by his primary care stating that it looked like he had a urinary tract infection. However�pharmacy was closed all
weekend which is why medication was just started yesterday.
Patient had a cholecystectomy 05/2024.
Past History
<Joanne Antony LABORATORY SAMPLER - Last Filed: 11/04/24 16:57>
Past History
ED Past Medical History: Arrthythmia (Atrial fibrillation), HTN, Hypercholesterolemia and Other (pacemaker)
ED Past Surgical History: Cardiac
Social History
Tobacco: Non-smoker
Alcohol: None
Drug: None
Personal:
Living: with family
Family History
Family History: Other (no significant); Negative Sudden
Review of Systems
<Denice Mello PA-C - Last Filed: 11/05/24 03:36>
Review of Systems
Allergies reviewed?: Yes
All Other Systems: ROS reviewed and negative except as documented in HPI and ROS
Phy Exam
<Denice Mello PA-C - Last Filed: 11/05/24 03:36>
Physical Exam
Physical Exam:
Vitals: Febrile on arrival, otherwise stable vital signs
General: Patient is weak appearing
Skin: Warm and dry, no rashes or lesions
Head: Normocephalic, atraumatic
Eyes: Sclera nonicteric. EOMs intact. No nystagmus.
Throat: Protecting airway
Neck: Normal ROM, no cervical spine tenderness, no meningismus
Cardiac: Regular rate, irregularly irregular rhythm no murmurs.
Pulm: Normal respiratory effort, no wheezes, rales, rhonchi heard on exam. O2 saturation 98 on room air
Abdomen: Abdomen soft. Moderate abdominal tenderness most significant in upper abdomen, right upper quadrant.
Extremities: No evidence of cyanosis or edema.
Neuro: Alert. No focal neurologic deficits. Moving all extremities.
Psychiatric: Normal affect.
Sepsis
<Joanne Antony, LABORATORY SAMPLER - Last Filed: 11/04/24 16:57>
Sepsis Screen
Sepsis Screen: Possible Sepsis
Date: 11/04/24
Time: 16:50
<Denice Mello PA-C - Last Filed: 11/05/24 03:36>
Sepsis Screening
Sepsis Assessment: Severe Sepsis
Sepsis Screening: Hypotension and Bilirubin >2mg/dl
Sepsis Screen
Sepsis Screen: Severe Sepsis
Date: 11/05/24
Time: 03:35
Course
<Joanne Antony LABORATORY SAMPLER - Last Filed: 11/04/24 16:57>
Orders/Labs/Results
Orders:
Orders
11/04/24 16:39
Electrocardiogram (*1) Urgent
Reason for Study: Abdominal Pain
EKG- Treatment ONCE
11/04/24 17:02
Complete Blood Count/With Diff Urgent
Comprehensive Metabolic Panel Urgent
LFT [Skzsz-Wdjn-Qnhalrl] Urgent
Lipase Urgent
11/04/24 22:13
pacemaker [Interrogate Pacemaker- Treatment] ONCE
Urinalysis Reflex To Culture Urgent
Date Specimen was Collected: 11/05/24
Time Specimen was Collected: 01:38
0.9% Sodium Chloride 1000 ml [Nss] 1,000 ml IV BOLUS
11/04/24 22:14
CT Abd/pelvis W Iv Cont Urgent
Comment: cholecystectomy 05/2024
Reason For Exam: upper abdominal pain, fever, AMS
11/04/24 22:25
COVID-19 Antigen Urgent
Source: Nasal Swab
Influenza A+B Rapid Molecular Urgent
JEANNETTE Source: Nasal Swab
Specimen Description:
11/04/24 22:33
Piperacillin/Tazo 3.375 Gram [Zosyn] 3.375 gram in 50 ml IV NOW
11/04/24 22:47
Lactic Acid Q4H
Comment: CANCEL 2nd LACTIC ACID IF 1st LACTIC ACID IS LESS THAN 2
Blood Culture Q30M
JEANNETTE Source: Blood/Venous
Specimen Description:
Blood Culture Q30M
JEANNETTE Source: Blood/Venous
Specimen Description:
11/04/24 23:28
NT-proBNP Urgent
Troponin I Urgent
11/05/24 01:29
0.9% Sodium Chloride 1000 ml [Nss] 1,000 ml IV BOLUS
11/05/24 01:39
Urine Microscopic Reflex Cult Urgent
Urine Culture Urgent
JEANNETTE Source: U
Specimen Description:
Date Specimen was Collected: 11/05/24
Time Specimen was Collected: 01:38
11/05/24 01:54
CT Head W/o Iv Contrast Urgent
Comment:
Reason For Exam: weakness, history of confusion
11/05/24 02:04
CR Chest - 2 Views Urgent
Comment:
Reason For Exam: weakness
11/05/24 03:01
Admit/Transfer Patient As Directed
Co-Sign Provider:
Level of Care: Inpatient admission
Assign to:: Telemetry
Physician / Group: Jesus
Diagnosis: Sepsis
Reason for Telemetry: Arrhythmia
Date to Stop Telemetry: 11/08/24
Time to Stop Telemetry: 11:00
Reason for Hospitalization: Sepsis
Expected length of stay greater than two midnights?: Yes
ELOS- Estimated Length of Stay in days: 3
I certify the patient meets the requirements for IP care: Yes
PRN Pain Medication Management As Directed
May give lesser potent ordered pain med per pt: Yes
preference::
Protocol:: Medication orders for pain may be administered in a
manner that supports deferring to patient preference
when the pt is:
- Requesting an ordered lesser potent pain medication.
Least to most potent pain medications are defined
as: acetaminophen < NSAID < tramadol < opioids
(morphine, oxycodone, hydromorphone).
- Requesting a lesser dose of the same medication IF
ORDERED.
- Requesting a less intrusive route of administration
if both routes are prescribed by the provider (PO <
IV).
11/05/24 03:03
Code Status As Directed
Resuscitation Status: Full Code
11/05/24 03:32
Acetaminophen [Tylenol] 650 mg PO Q4HPRN PRN
11/05/24 03:32
Consult Notification Routine
Specialty to Notify: Infectious Disease
INFECTIOUS DISEASE CONSULT Routine
Consulting Provider: Haydee Richards
Was physician already notified: No
Reason for consult: Sepsis, Chronic HBV
TSH Reflex To Free T4 Routine
Activity As Directed
Activity Level: Ambulate
With Assistance
Bladder Scan As Directed
Follow Bladder Retention/Intermittent Cath Algorithm?: Yes
PRN if no void in __ hours: 6
Frequency: Per Retention Algorithm
If Bladder Scan Result >: 400
then:: Straight cath
EKG with chest pain [ECG as needed] As Directed
ECG as needed for:: Chest Pain
I/O [Intake/ Output] As Directed
Frequency: Per unit guidelines
Orthostatic Vital Signs As Directed
Orthostatic VS Frequency: BID
Pneumatic Compression Sleeves As Directed
Type: Knee high
Straight Cath As Directed
Frequency: Per Retention Algorithm
Additional Instructions: straight cath as needed per acute urinary retention algorithm for 24 hrs
Additional Instructions: for bladder scan greater than 400 mL
Vital Signs As Directed
Frequency: Per unit guidelines
Weight As Directed
Frequency: Daily
Oxygen Therapy [O2 Therapy] [RESP] Routine
Titrate/Wean O2 to maintain O2 sat greater than (%): 94
Ot Eval And Treat Routine
PT Consult [Pt Eval And Treat] Routine
Activity Level: Ambulate
With Assistance
DX Deep Vein Thrombosis Video Routine
11/05/24 04:00
Lactated Ringers [Lr] 1,000 ml IV 125 mls/hr
Levothyroxine [Synthroid] 50 mcg PO Q48H
Levothyroxine [Synthroid] 75 mcg PO Q48H
11/05/24 06:00
EKG [Electrocardiogram (*1)] IN AM
Reason for Study: Chest Pain
NPO
Allow oral meds: Yes
Allow clear liquids: Sips of Clears
Basic Metabolic Panel IN AM
Complete Blood Count/No Diff IN AM
LFT [Uljlz-Ldea-Grhpsrh] IN AM
Magnesium IN AM
Phosphorus IN AM
11/05/24 08:00
Carvedilol [Coreg] 3.125 mg PO BID
Donepezil HCl [Aricept] 10 mg PO DAILY
Heparin 5,000 units SC Q12
Pantoprazole [Protonix] 40 mg PO DAILY
Tenofovir [Viread] 300 mg PO DAILY
dutasteride 0.5 mg PO DAILY
memantine 14 mg PO DAILY
11/05/24 22:00
Rosuvastatin Calcium [Crestor] 10 mg PO HS
Tamsulosin [Flomax] 0.4 mg PO HS
11/08/24 11:00
DC Protocol for Telemetry ONCE
Abnormal Lab Results
11/04/24 11/05/24
17:02 01:39
WBC 23.5 H 10^3/uL
(4.8-10.8)
Abs Immat Gran (auto) 0.2 H 10^3/uL
(0-0.05)
Absolute Neuts (auto) 20.2 H 10^3/uL
(1.4-6.5)
Absolute Monos (auto) 1.3 H 10^3/uL
(0.1-0.6)
Immature Gran % 0.9 H %
(0-0.5)
Neutrophils % 86.0 H %
(42.2-75.2)
Lymphocytes % 7.3 L %
(20.5-51.1)
BUN 22 H mg/dl
(9-20)
Glucose 138 H mg/dl
(70-99)
Total Bilirubin 4.3 H mg/dl
(0.2-1.3)
Ur Occult Blood Reflex 3+ A
(Negative)
Leukocyte Esterase Rfl 2+ A
(Negative)
Urine RBC 11-15 A /HPF
(0-2)
Urine WBC (Reflex) >100 A /HPF
(0-5)
Urine Bacteria (Reflex) Moderate A
(Negative)
11/04/24 17:02
11/04/24 17:02
Vital Signs
Initial and Last Documented VS:
Initial Vital Signs
Temp Pulse Resp BP Pulse Ox
100.9 F H 80 22 120/59 95
11/04/24 16:36 11/04/24 16:36 11/04/24 16:36 11/04/24 16:36 11/04/24 16:36
Last Documented Vital Signs
Temp Pulse Resp BP Pulse Ox
98.2 F 71 25 119/57 96
11/05/24 03:34 11/05/24 03:30 11/05/24 03:30 11/05/24 03:28 11/05/24 03:30
<Denice Mello PA-C - Last Filed: 11/05/24 03:36>
Orders/Labs/Results
Orders:
Orders
11/04/24 16:39
Electrocardiogram (*1) Urgent
Reason for Study: Abdominal Pain
EKG- Treatment ONCE
11/04/24 17:02
Complete Blood Count/With Diff Urgent
Comprehensive Metabolic Panel Urgent
LFT [Akwcu-Cmyz-Mtgvswo] Urgent
Lipase Urgent
11/04/24 22:13
pacemaker [Interrogate Pacemaker- Treatment] ONCE
Urinalysis Reflex To Culture Urgent
Date Specimen was Collected: 11/05/24
Time Specimen was Collected: 01:38
0.9% Sodium Chloride 1000 ml [Nss] 1,000 ml IV BOLUS
11/04/24 22:14
CT Abd/pelvis W Iv Cont Urgent
Comment: cholecystectomy 05/2024
Reason For Exam: upper abdominal pain, fever, AMS
11/04/24 22:25
COVID-19 Antigen Urgent
Source: Nasal Swab
Influenza A+B Rapid Molecular Urgent
JEANNETTE Source: Nasal Swab
Specimen Description:
11/04/24 22:33
Piperacillin/Tazo 3.375 Gram [Zosyn] 3.375 gram in 50 ml IV NOW
11/04/24 22:47
Lactic Acid Q4H
Comment: CANCEL 2nd LACTIC ACID IF 1st LACTIC ACID IS LESS THAN 2
Blood Culture Q30M
JEANNETTE Source: Blood/Venous
Specimen Description:
Blood Culture Q30M
JEANNETTE Source: Blood/Venous
Specimen Description:
11/04/24 23:28
NT-proBNP Urgent
Troponin I Urgent
11/05/24 01:29
0.9% Sodium Chloride 1000 ml [Nss] 1,000 ml IV BOLUS
11/05/24 01:39
Urine Microscopic Reflex Cult Urgent
Urine Culture Urgent
JEANNETTE Source: U
Specimen Description:
Date Specimen was Collected: 11/05/24
Time Specimen was Collected: 01:38
11/05/24 01:54
CT Head W/o Iv Contrast Urgent
Comment:
Reason For Exam: weakness, history of confusion
11/05/24 02:04
CR Chest - 2 Views Urgent
Comment:
Reason For Exam: weakness
11/05/24 03:01
Admit/Transfer Patient As Directed
Co-Sign Provider:
Level of Care: Inpatient admission
Assign to:: Telemetry
Physician / Group: Jesus
Diagnosis: Sepsis
Reason for Telemetry: Arrhythmia
Date to Stop Telemetry: 11/08/24
Time to Stop Telemetry: 11:00
Reason for Hospitalization: Sepsis
Expected length of stay greater than two midnights?: Yes
ELOS- Estimated Length of Stay in days: 3
I certify the patient meets the requirements for IP care: Yes
PRN Pain Medication Management As Directed
May give lesser potent ordered pain med per pt: Yes
preference::
Protocol:: Medication orders for pain may be administered in a
manner that supports deferring to patient preference
when the pt is:
- Requesting an ordered lesser potent pain medication.
Least to most potent pain medications are defined
as: acetaminophen < NSAID < tramadol < opioids
(morphine, oxycodone, hydromorphone).
- Requesting a lesser dose of the same medication IF
ORDERED.
- Requesting a less intrusive route of administration
if both routes are prescribed by the provider (PO <
IV).
11/05/24 03:03
Code Status As Directed
Resuscitation Status: Full Code
11/05/24 03:32
Acetaminophen [Tylenol] 650 mg PO Q4HPRN PRN
11/05/24 03:32
Consult Notification Routine
Specialty to Notify: Infectious Disease
INFECTIOUS DISEASE CONSULT Routine
Consulting Provider: Haydee Richards
Was physician already notified: No
Reason for consult: Sepsis, Chronic HBV
TSH Reflex To Free T4 Routine
Activity As Directed
Activity Level: Ambulate
With Assistance
Bladder Scan As Directed
Follow Bladder Retention/Intermittent Cath Algorithm?: Yes
PRN if no void in __ hours: 6
Frequency: Per Retention Algorithm
If Bladder Scan Result >: 400
then:: Straight cath
EKG with chest pain [ECG as needed] As Directed
ECG as needed for:: Chest Pain
I/O [Intake/ Output] As Directed
Frequency: Per unit guidelines
Orthostatic Vital Signs As Directed
Orthostatic VS Frequency: BID
Pneumatic Compression Sleeves As Directed
Type: Knee high
Straight Cath As Directed
Frequency: Per Retention Algorithm
Additional Instructions: straight cath as needed per acute urinary retention algorithm for 24 hrs
Additional Instructions: for bladder scan greater than 400 mL
Vital Signs As Directed
Frequency: Per unit guidelines
Weight As Directed
Frequency: Daily
Oxygen Therapy [O2 Therapy] [RESP] Routine
Titrate/Wean O2 to maintain O2 sat greater than (%): 94
Ot Eval And Treat Routine
PT Consult [Pt Eval And Treat] Routine
Activity Level: Ambulate
With Assistance
DX Deep Vein Thrombosis Video Routine
11/05/24 04:00
Lactated Ringers [Lr] 1,000 ml IV 125 mls/hr
Levothyroxine [Synthroid] 50 mcg PO Q48H
Levothyroxine [Synthroid] 75 mcg PO Q48H
11/05/24 06:00
EKG [Electrocardiogram (*1)] IN AM
Reason for Study: Chest Pain
NPO
Allow oral meds: Yes
Allow clear liquids: Sips of Clears
Basic Metabolic Panel IN AM
Complete Blood Count/No Diff IN AM
LFT [Etvms-Jrkl-Hulmxvo] IN AM
Magnesium IN AM
Phosphorus IN AM
11/05/24 08:00
Carvedilol [Coreg] 3.125 mg PO BID
Donepezil HCl [Aricept] 10 mg PO DAILY
Heparin 5,000 units SC Q12
Pantoprazole [Protonix] 40 mg PO DAILY
Tenofovir [Viread] 300 mg PO DAILY
dutasteride 0.5 mg PO DAILY
memantine 14 mg PO DAILY
11/05/24 22:00
Rosuvastatin Calcium [Crestor] 10 mg PO HS
Tamsulosin [Flomax] 0.4 mg PO HS
11/08/24 11:00
DC Protocol for Telemetry ONCE
Abnormal Lab Results
11/04/24 11/05/24
17:02 01:39
WBC 23.5 H 10^3/uL
(4.8-10.8)
Abs Immat Gran (auto) 0.2 H 10^3/uL
(0-0.05)
Absolute Neuts (auto) 20.2 H 10^3/uL
(1.4-6.5)
Absolute Monos (auto) 1.3 H 10^3/uL
(0.1-0.6)
Immature Gran % 0.9 H %
(0-0.5)
Neutrophils % 86.0 H %
(42.2-75.2)
Lymphocytes % 7.3 L %
(20.5-51.1)
BUN 22 H mg/dl
(9-20)
Glucose 138 H mg/dl
(70-99)
Total Bilirubin 4.3 H mg/dl
(0.2-1.3)
Ur Occult Blood Reflex 3+ A
(Negative)
Leukocyte Esterase Rfl 2+ A
(Negative)
Urine RBC 11-15 A /HPF
(0-2)
Urine WBC (Reflex) >100 A /HPF
(0-5)
Urine Bacteria (Reflex) Moderate A
(Negative)
11/04/24 17:02
11/04/24 17:02
Vital Signs
Initial and Last Documented VS:
Initial Vital Signs
Temp Pulse Resp BP Pulse Ox
100.9 F H 80 22 120/59 95
11/04/24 16:36 11/04/24 16:36 11/04/24 16:36 11/04/24 16:36 11/04/24 16:36
Last Documented Vital Signs
Temp Pulse Resp BP Pulse Ox
98.2 F 71 25 119/57 96
11/05/24 03:34 11/05/24 03:30 11/05/24 03:30 11/05/24 03:28 11/05/24 03:30
<Misty Kenney MD - Last Filed: 11/04/24 22:32>
Orders/Labs/Results
Orders:
Orders
11/04/24 16:39
Electrocardiogram (*1) Urgent
Reason for Study: Abdominal Pain
EKG- Treatment ONCE
11/04/24 17:02
Complete Blood Count/With Diff Urgent
Comprehensive Metabolic Panel Urgent
LFT [Biwsj-Tbml-Caeysum] Urgent
Lipase Urgent
11/04/24 22:13
pacemaker [Interrogate Pacemaker- Treatment] ONCE
Urinalysis Reflex To Culture Urgent
Date Specimen was Collected: 11/05/24
Time Specimen was Collected: 01:38
0.9% Sodium Chloride 1000 ml [Nss] 1,000 ml IV BOLUS
11/04/24 22:14
CT Abd/pelvis W Iv Cont Urgent
Comment: cholecystectomy 05/2024
Reason For Exam: upper abdominal pain, fever, AMS
11/04/24 22:25
COVID-19 Antigen Urgent
Source: Nasal Swab
Influenza A+B Rapid Molecular Urgent
JEANNETTE Source: Nasal Swab
Specimen Description:
11/04/24 22:33
Piperacillin/Tazo 3.375 Gram [Zosyn] 3.375 gram in 50 ml IV NOW
11/04/24 22:47
Lactic Acid Q4H
Comment: CANCEL 2nd LACTIC ACID IF 1st LACTIC ACID IS LESS THAN 2
Blood Culture Q30M
JEANNETTE Source: Blood/Venous
Specimen Description:
Blood Culture Q30M
JEANNETTE Source: Blood/Venous
Specimen Description:
11/04/24 23:28
NT-proBNP Urgent
Troponin I Urgent
11/05/24 01:29
0.9% Sodium Chloride 1000 ml [Nss] 1,000 ml IV BOLUS
11/05/24 01:39
Urine Microscopic Reflex Cult Urgent
Urine Culture Urgent
JEANNETTE Source: U
Specimen Description:
Date Specimen was Collected: 11/05/24
Time Specimen was Collected: 01:38
11/05/24 01:54
CT Head W/o Iv Contrast Urgent
Comment:
Reason For Exam: weakness, history of confusion
11/05/24 02:04
CR Chest - 2 Views Urgent
Comment:
Reason For Exam: weakness
11/05/24 03:01
Admit/Transfer Patient As Directed
Co-Sign Provider:
Level of Care: Inpatient admission
Assign to:: Telemetry
Physician / Group: Jesus
Diagnosis: Sepsis
Reason for Telemetry: Arrhythmia
Date to Stop Telemetry: 11/08/24
Time to Stop Telemetry: 11:00
Reason for Hospitalization: Sepsis
Expected length of stay greater than two midnights?: Yes
ELOS- Estimated Length of Stay in days: 3
I certify the patient meets the requirements for IP care: Yes
PRN Pain Medication Management As Directed
May give lesser potent ordered pain med per pt: Yes
preference::
Protocol:: Medication orders for pain may be administered in a
manner that supports deferring to patient preference
when the pt is:
- Requesting an ordered lesser potent pain medication.
Least to most potent pain medications are defined
as: acetaminophen < NSAID < tramadol < opioids
(morphine, oxycodone, hydromorphone).
- Requesting a lesser dose of the same medication IF
ORDERED.
- Requesting a less intrusive route of administration
if both routes are prescribed by the provider (PO <
IV).
11/05/24 03:03
Code Status As Directed
Resuscitation Status: Full Code
11/05/24 03:32
Acetaminophen [Tylenol] 650 mg PO Q4HPRN PRN
11/05/24 03:32
Consult Notification Routine
Specialty to Notify: Infectious Disease
INFECTIOUS DISEASE CONSULT Routine
Consulting Provider: Haydee Richards
Was physician already notified: No
Reason for consult: Sepsis, Chronic HBV
TSH Reflex To Free T4 Routine
Activity As Directed
Activity Level: Ambulate
With Assistance
Bladder Scan As Directed
Follow Bladder Retention/Intermittent Cath Algorithm?: Yes
PRN if no void in __ hours: 6
Frequency: Per Retention Algorithm
If Bladder Scan Result >: 400
then:: Straight cath
EKG with chest pain [ECG as needed] As Directed
ECG as needed for:: Chest Pain
I/O [Intake/ Output] As Directed
Frequency: Per unit guidelines
Orthostatic Vital Signs As Directed
Orthostatic VS Frequency: BID
Pneumatic Compression Sleeves As Directed
Type: Knee high
Straight Cath As Directed
Frequency: Per Retention Algorithm
Additional Instructions: straight cath as needed per acute urinary retention algorithm for 24 hrs
Additional Instructions: for bladder scan greater than 400 mL
Vital Signs As Directed
Frequency: Per unit guidelines
Weight As Directed
Frequency: Daily
Oxygen Therapy [O2 Therapy] [RESP] Routine
Titrate/Wean O2 to maintain O2 sat greater than (%): 94
Ot Eval And Treat Routine
PT Consult [Pt Eval And Treat] Routine
Activity Level: Ambulate
With Assistance
DX Deep Vein Thrombosis Video Routine
11/05/24 04:00
Lactated Ringers [Lr] 1,000 ml IV 125 mls/hr
Levothyroxine [Synthroid] 50 mcg PO Q48H
Levothyroxine [Synthroid] 75 mcg PO Q48H
11/05/24 06:00
EKG [Electrocardiogram (*1)] IN AM
Reason for Study: Chest Pain
NPO
Allow oral meds: Yes
Allow clear liquids: Sips of Clears
Basic Metabolic Panel IN AM
Complete Blood Count/No Diff IN AM
LFT [Lrwri-Rlkf-Wwuwwag] IN AM
Magnesium IN AM
Phosphorus IN AM
11/05/24 08:00
Carvedilol [Coreg] 3.125 mg PO BID
Donepezil HCl [Aricept] 10 mg PO DAILY
Heparin 5,000 units SC Q12
Pantoprazole [Protonix] 40 mg PO DAILY
Tenofovir [Viread] 300 mg PO DAILY
dutasteride 0.5 mg PO DAILY
memantine 14 mg PO DAILY
11/05/24 22:00
Rosuvastatin Calcium [Crestor] 10 mg PO HS
Tamsulosin [Flomax] 0.4 mg PO HS
11/08/24 11:00
DC Protocol for Telemetry ONCE
Abnormal Lab Results
11/04/24 11/05/24
17:02 01:39
WBC 23.5 H 10^3/uL
(4.8-10.8)
Abs Immat Gran (auto) 0.2 H 10^3/uL
(0-0.05)
Absolute Neuts (auto) 20.2 H 10^3/uL
(1.4-6.5)
Absolute Monos (auto) 1.3 H 10^3/uL
(0.1-0.6)
Immature Gran % 0.9 H %
(0-0.5)
Neutrophils % 86.0 H %
(42.2-75.2)
Lymphocytes % 7.3 L %
(20.5-51.1)
BUN 22 H mg/dl
(9-20)
Glucose 138 H mg/dl
(70-99)
Total Bilirubin 4.3 H mg/dl
(0.2-1.3)
Ur Occult Blood Reflex 3+ A
(Negative)
Leukocyte Esterase Rfl 2+ A
(Negative)
Urine RBC 11-15 A /HPF
(0-2)
Urine WBC (Reflex) >100 A /HPF
(0-5)
Urine Bacteria (Reflex) Moderate A
(Negative)
11/04/24 17:02
11/04/24 17:02
Vital Signs
Initial and Last Documented VS:
Initial Vital Signs
Temp Pulse Resp BP Pulse Ox
100.9 F H 80 22 120/59 95
11/04/24 16:36 11/04/24 16:36 11/04/24 16:36 11/04/24 16:36 11/04/24 16:36
Last Documented Vital Signs
Temp Pulse Resp BP Pulse Ox
98.2 F 71 25 119/57 96
11/05/24 03:34 11/05/24 03:30 11/05/24 03:30 11/05/24 03:28 11/05/24 03:30
<Denice Mello PA-C - Last Filed: 11/05/24 03:36>
MDM/Problems Addressed
Differential Diagnosis Includes:
Not limited to: Viral illness, UTI, urosepsis, cholangitis, viral gastroenteritis, choledocholithiasis, pancreatitis, etc.
MDM/Problems Addressed:
89-year-old male with history as documented presenting with significant weakness and vomiting currently being treated for UTI�initiated ABX yesterday. Patients daughter thought he was little confused earlier today although no chest pain or
shortness of breath. No respiratory symptoms. Patient febrile on arrival otherwise stable vital signs. Patient not hypoxic. Physical exam as above. No acute mental status change noted on exam. He does have moderate diffuse abdominal tenderness,
somewhat worse in upper abdomen. Cardio/pulmonary assessment unremarkable. Lungs clear. No focal neurologic deficits noted. Labs initiated in triage significant for leukocytosis of 23.5 with left shift. Hyperbilirubinemia noted at 4.3. Concern
for underlying infectious process. Will check urine, CT abdomen pelvis, lactic, blood cultures. Will empirically treat with Zosyn. Patient meets sepsis criteria given current UTI. Will give IV fluids. EKG does show atrial fibrillation with some
new T wave inversions. Will check troponin and proBNP.
Update: Lactic normal. Troponin normal. proBNP noted. Viral swabs negative. CT scan report reviewed which shows epiploic appendagitis�this would not explain patient's profound weakness and leukocytosis. Patient does meet sepsis criteria
although source currently unknown. Low suspicion for pulmonary source. Ultimately suspect urinary source given known UTI which was not treated for 3 days. BP mildly soft. Will give second liter of IV fluids and admit to hospitalist for further
management. Patient seen with attending physician.
Chronic conditions affecting care:
Dementia, atrial fibrillation, history of kidney stones
Acute Exacerbation and/or Progression of Chronic Illness:
N/A
<Denice Mello PA-C - Last Filed: 11/05/24 03:36>
*Radiology
Radiology exam reviewed: radiology read reviewed (Epiploic appendagitis)
*Pulse Oximetry
Patient hypoxic: no
*EKG
Interpreted by ED Provider?: Yes
EKG Intrepretation Date: 11/04/24
Interpretation: abnormal
Comparison EKG: changes noted
Heart Rate: 91
Rate: normal
Rhythm: a-fib
Upatoi: normal axis
Interval: normal QT interval
QRS Pattern: normal QRS
Ischemia: T-wave inversion (New T wave inversions noted)
*Pensionholder Information Clerk Interpretation
Rate: normal
Interpretation: abnormal
Heart Rate: 64
Rhythm: a-fib
*Critical Care Note
Total Time (30-74mins, 75-104mins- exclusive of procedures): Not Applicable
<Denice Mello PA-C - Last Filed: 11/05/24 03:36>
Patient Management
Discussion with other providers: Hospitalist
Escalation/DeEscalation of care consider admission/obs:
Admit indicated
ED Attending Note
<Joanne Antony LABORATORY SAMPLER - Last Filed: 11/04/24 16:57>
-
Portions of this chart may have been created with voice recognition software.� Occasional wrong word or��sound alike� substitutions may have occurred due to the inherent limitations of voice recognition software.
<Misty Kenney MD - Last Filed: 11/04/24 22:32>
ED Attending Note
Patient seen and examined by attending physician: Yes
I performed the substantive portion of visit, reviewed & personally made and approve the management plan that is documented in note by myself or JASON.: Yes
ED Attending Note:
I have seen and evaluated the patient with a [id number] encounter. I have spoken to the [PA] and involved in the medical history, the physical exam, medical decision making.
Evaluation and management service: agree unless noted differently below.
Results interpretation: agree unless noted differently below.
89-year-old man with history of A-fib on Xarelto, hypertension, hyperlipidemia, s/p cholecystectomy presenting to the emergency department abdominal pain. Patient's family was are at bedside provide all the history. Patient does have dementia. He
has been having nausea vomiting since today. This morning he was diagnosed with UTI and started on antibiotics. He does seem less active than his baseline. No sick contacts. No recent travel. He did have 1 dose of the antibiotics. During my
evaluation patient is resting comfortably. He does have right upper quadrant tenderness to palpation as well as suprapubic tenderness. Blood work obtained prior to my evaluation does show show leukocytosis. He does have an elevated total
bilirubin but the direct is normal. Will proceed with CT scan as well as a chest x-ray. Will give empiric antibiotics. Anticipate admission.
Discharge Plan
Departure
Patient Disposition: Admit
Date of Disposition: 11/05/24
Time of Disposition: 01:40
Presentation/result/management discussed w/ accepting MD/DO: Hospitalist
Discharge Problem:
Sepsis, Weakness
Interventions
Interventions:
*Risk Screen - Suicide Last Done: 11/04/24 16:36
*General Assessment Last Done: 11/04/24 16:36
*Neglect/Abuse Screening Last Done: 11/04/24 16:36
ED- Fall Risk Assessment Last Done: 11/04/24 22:15
*Nursing Disposition Last Done: 11/05/24 03:30
JM-Lllbaw-Jyjuvgirco Assessment Last Done: 11/04/24 22:15
[2024-11-04 17:20] LABS: Hematocrit 45.5 % (39.0-52.0); Hemoglobin 15.8 g/dL (13.0-18.0); Mean Corp Hgb Conc. 34.7 g/dL (33.0-37.0); Mean Corpuscular Hgb 30.3 pg (27.0-31.0); Mean Corpuscular Volume 87.3 fL (80.0-94.0); Platelet Count 181 10^3/uL (130-400); Red Blood Cell Count 5.21 10^6/uL (4.70-6.10); White Blood Cell Count 23.5 10^3/uL (4.8-10.8)
[2024-11-04 17:24] LABS: ALT (SGPT) 25 U/L (0-50); AST (SGOT) 37 U/L (17-59); Albumin 4.4 g/dl (3.5-5.0); Alkaline Phosphatase 64 U/L (38-126); Blood Urea Nitrogen 22 mg/dl (9-20); Calcium 9.3 mg/dl (8.4-10.2); Carbon Dioxide 23 mmol/L (22-30); Chloride 100 mmol/L (98-107); Direct Bilirubin 0.1 mg/dl (0.0-0.4); Glucose 138 mg/dl (70-99); Sodium 135 mmol/L (135-145); Total Bilirubin 4.3 mg/dl (0.2-1.3); Total Protein 7.1 g/dl (6.3-8.2); eGFR 58.53
[2024-11-04 17:25] LABS: Lipase 50 U/L (23-300)
[2024-11-04 17:42] LABS: % Basophils 0.2 % (0-2); % Eosinophils 0.1 % (0-6); % Immature Granulocytes 0.9 % (0-0.5); % Lymphocytes 7.3 % (20.5-51.1); % Monocytes 5.5 % (1.7-9.3); Absolute Immature Granulocytes 0.2 10^3/uL (0-0.05); Absolute Lymphocytes 1.7 10^3/uL (1.2-3.4); Absolute Monocytes 1.3 10^3/uL (0.1-0.6); Absolute Neutrophils 20.2 10^3/uL (1.4-6.5); Nucleated Red Blood Cells % 0 % (-)
[2024-11-04 18:01] VITALS: BP 107/57
[2024-11-04 22:10] VITALS: BP 109/56
[2024-11-04] MEDS: NSS 1000 IV (22:22)
[2024-11-04 22:51] LABS: COVID-19 Antigen Negative (Negative)
[2024-11-04 23:00] VITALS: BP 107/48
[2024-11-04 23:06] LABS: Lactic Acid 1.9 mmol/L (0.7-2.0)
[2024-11-04] MEDS: ZOSYN 50 IV (23:43)
[2024-11-05] VITALS (25 sets, daily range): BP systolic 96–158; BP diastolic 34–126; PULSE 60–67; O2SAT 95–96; BMI 31.0; BMI 27.9
[2024-11-05 01:11] LABS: NT-proBNP 4170 pg/ml; Troponin I 0.019 ng/ml
[2024-11-05] MEDS: NSS 1000 IV (01:30)
[2024-11-05 01:46] LABS: Urine Albumin Trace (Neg - Trace); Urine Bilirubin Negative (Negative); Urine Glucose Negative (Negative); Urine Ketone Negative (Negative); Urine Leukocyte 2+ (Negative); Urine Nitrite Negative (Negative); Urine Occult Blood 3+ (Negative); Urine Specific Gravity 1.015 (<1.030); Urine Urobilinogen Negative (Neg - 1+)
[2024-11-05 01:50] LABS: Urine Character Slightly Cloudy (Clear); Urine Color Amber
[2024-11-05 02:09] LABS: Urine Squamous Cell >30 /LPF (Few)
[2024-11-05 02:10] LABS: Urine Amorphous Seen; Urine Calcium Oxalate Crystals Seen
[2024-11-05 02:16] LABS: Urine Bacteria Moderate (Negative); Urine Mucus Few; Urine Urothelial Cell >30 /LPF (FEW); Urine White Cell >100 /HPF (0-5)
--- NOTE | 2024-11-05 03:16 | HPS.HSE ---
Family Physician
-
Family Physician: Saleem Panchal
Chief Complaint
-
N/V, Confusion, Chills
History of Present Illness
Patient is an 89y M with PMH significant for A-Fib, hypothyroidism and chronic Hep B who presents to ED for evaluation of shaking chills, N/V and increased confusion. History obtained from patient and ED staff. Family present earlier to provide
additional history to ED staff. Patient started having N/V last PM. He has continued throughout the day with N/V and has seemed more confused than usual. Family appreciated him tremulous / shaking. Patient denied any abdominal pain. No noted
diarrhea. No sick contacts in the home.
Patient was last admitted here in 05/2024 and treated for acute cholecystitis at that time (underwent cholecystectomy).
At the time of my examination patient is resting comfortably. He does have some tenderness on abdominal exam.
Family noted that patient had urinalysis done at his PCP office on Sunday (though there were apparently no specific symptoms at that time).
They were advised that the urine appeared infected and abx (Macrobid) was called in. They obtained and started this abx yesterday.
Medical History
Past Medical History
Past Medical History: Reports Other
Additional Past Medical History:
Paroxysmal Atrial Fibrillation
Hypertension
Hypothyroidism
GERD
Nephrolithiasis
Dementia
Chronic Hepatitis B Infection
Past Surgical History: Reports Other
Additional Past Surgical History:
PPM Placement
Cholecystectomy
Social History
Tobacco: Non-smoker
Alcohol: None
Drug: None
Family History
Family History: Not pertinent
Allergies / Home Medications
Allergies reflects when Allergies were last updated in [facility].
Home Medications with original date entered in [facility]
Allergy/Medication List:
Allergies
Allergy/AdvReac Type Severity Reaction Status Date / Time
No Known Allergies Allergy Verified 05/15/24 02:33
Home Medications
rivaroxaban 20 mg tablet (Xarelto) 20 mg PO DAILY Blood Clot Prevention/Tx 02/24/16
tamsulosin 0.4 mg capsule 0.4 mg PO HS Prostate Issue 02/24/16
dutasteride 0.5 mg capsule 0.5 mg PO DAILY Prostate Issues 04/18/17
acetaminophen 500 mg tablet 500 mg PO BIDPRN PRN mild pain 04/15/24
ascorbic acid (vitamin C) 500 mg tablet 500 mg PO DAILY Supplement 04/15/24
carvedilol 3.125 mg tablet 3.125 mg PO BID Blood Pressure 04/15/24
cholecalciferol (vitamin D3) 50 mcg (2,000 unit) tablet 50 mcg PO DAILY Supplement 04/15/24
cyanocobalamin (vitamin B-12) 1,000 mcg tablet 1,000 mcg PO DAILY Supplement 04/15/24
donepezil 10 mg tablet 10 mg PO DAILY Mental Health 04/15/24
ezetimibe 10 mg tablet 10 mg PO HS High Cholesterol 04/15/24
hydrocortisone 2.5 % topical cream with perineal applicator 1 applic topical DAILY Anti-Inflammatory 04/15/24
icosapent ethyl 1 gram capsule (Vascepa) 2 g PO BID High Cholesterol 04/15/24
lactulose 10 gram/15 mL oral solution (Enulose) 30 ml PO DAILYPRN PRN constipation 04/15/24
levothyroxine 50 mcg tablet 50 mcg PO Q48H Thyroid 04/15/24
levothyroxine 75 mcg tablet 75 mcg PO Q48H Thyroid 04/15/24
meclizine 12.5 mg tablet 12.5 mg PO BID Neurological Condition 04/15/24
mirabegron 50 mg tablet,extended release 24 hr (Myrbetriq) 50 mg PO DAILY Urinary Issue 04/15/24
pantoprazole 40 mg tablet,delayed release 40 mg PO DAILY Gastrointestinal Issue 04/15/24
rosuvastatin 10 mg tablet 10 mg PO HS High Cholesterol 04/15/24
tenofovir disoproxil fumarate 300 mg tablet 300 mg PO DAILY ANTIHEPADNAIRAL 05/15/24
memantine 14 mg capsule sprinkle,extended release 24hr 14 mg PO DAILY 11/04/24
nitrofurantoin monohydrate/macrocrystals 100 mg capsule (Macrobid) 100 mg PO BID 11/04/24
polyethylene glycol 3350 17 gram oral powder packet (HealthyLax) 17 g PO HSPRN PRN constipation 11/04/24
Review of Systems
-
History Source: Patient
A 12 point ROS was completed and negative except as noted: Yes
Constitutional: Reports Chills
Respiratory: Denies Cough or Trouble Breathing
Cardiac: Denies Chest Pain or Palpitations
Abdomen/GI: Reports Abdominal Pain, Nausea and Vomiting; Denies Diarrhea
Neurological: Denies Dizzy or Headache
Physical Exam
Vital Signs
Vital Signs
Temp Pulse Resp BP Pulse Ox
99.3 F 71 25 113/56 95
11/04/24 18:01 11/05/24 03:00 11/05/24 03:00 11/05/24 03:00 11/05/24 03:00
Physical Exam
General: Other (89y M in no acute distress.)
HEENT: Moist mucous membranes and PERRLA
Respiratory: Clear; No Wheezes, Rales or Rhonchi
Cardiac: S1/S2 and Regular Rhythm; No Murmur
GI: Soft, Non Distended, Normal Bowel Sounds and Other (Mild tenderness LLQ area. No rebound / guarding.)
Musculoskeletal: No Clubbing, No Cyanosis and No Edema
Neuro: Awake and Alert
Laboratory Results
-
11/04/24 17:02
11/04/24 17:02
Laboratory Results
Lactic Acid Cancelled 11/05/24 02:45
Total Bilirubin 4.3 mg/dl (0.2-1.3) H 11/04/24 17:02
AST 37 U/L (17-59) 11/04/24 17:02
ALT 25 U/L (0-50) 11/04/24 17:02
Alkaline Phosphatase 64 U/L (38-126) 11/04/24 17:02
Troponin I 0.019 ng/ml 11/05/24 00:14
Lipase 50 U/L (23-300) 11/04/24 17:02
Impression/Plan
-
A/P: Patient is an 89y M with PMH significant for A-Fib, hypothyroidism and chronic Hep B who presents to ED complaining of N/V and shaking chills.
Sepsis
- Admit for further evaluation and treatment.
- Patient presents with fever, tachypnea and leukocytosis with potential GI or sources of infection.
- Started on abx yesterday for reported UTI (dx prior to admission).
- CT scan done in the ED this evening shows area of epiploic appendagitis in the LLQ / sigmoid region.
- IV abx with Zosyn for now.
- IVF support, antipyretics, etc.
- Follow-up culture data, follow fever curve, etc.
- Follow for clinical improvement.
- ID evaluation for additional recommendations.
- Surgery evaluation - though epiploic appendagitis not likely to require intervention.
SUZETTE
- SCr =1.2 compared to baseline of 0.9.
- Likely pre-renal / due to sepsis.
- IVF overnight and follow for improvement in renal function.
Paroxysmal Atrial Fibrillation
- Stable. Continue carvedilol.
- Hold Xarelto acutely in the unlikely event that surgical intervention is needed.
Hypothyroidism
- Stable. Continue T4 supplementation.
Chronic Hep B Infection
- Continue tenofovir.
BPH
- Continue finasteride / tamsulosin.
- Bladder scan protocol.
Mild Dementia
- Continue current outpatient medications.
DVT Prophylaxis: Subcut heparin
Code Status: Full
[2024-11-05] MEDS: LR 1000 IV ×2 (05:14→12:15)
[2024-11-05 05:49] LABS: Hematocrit 39.9 % (39.0-52.0); Hemoglobin 13.4 g/dL (13.0-18.0); Mean Corp Hgb Conc. 33.6 g/dL (33.0-37.0); Mean Corpuscular Hgb 30.2 pg (27.0-31.0); Mean Corpuscular Volume 89.9 fL (80.0-94.0); Mean Platelet Volume 9.6 fL (7.4-10.4); Platelet Count 152 10^3/uL (130-400); Red Blood Cell Count 4.44 10^6/uL (4.70-6.10); Red Cell Dist. Width 13.3 % (11.5-14.5); White Blood Cell Count 24.3 10^3/uL (4.8-10.8)
[2024-11-05 06:16] LABS: TSH Reflex To Free T4 1.33 uIU/ml (0.47-4.68)
[2024-11-05] MEDS: HEPARIN 5000 UNITS SC ×2 (07:41→19:17)
[2024-11-05] MEDS: PROTONIX 40 MG PO (07:41)
[2024-11-05] MEDS: VIREAD 300 MG PO (07:41)
[2024-11-05] MEDS: PROSCAR 5 MG PO (07:41)
[2024-11-05] MEDS: NAMENDA 5 MG PO ×2 (07:42→19:17)
[2024-11-05] MEDS: ARICEPT 10 MG PO (07:42)
[2024-11-05] MEDS: COREG 3.125 MG PO ×2 (07:43→19:17)
[2024-11-05 09:24] LABS: ALT (SGPT) 21 U/L (0-50); AST (SGOT) 26 U/L (17-59); Albumin 3.4 g/dl (3.5-5.0); Alkaline Phosphatase 54 U/L (38-126); Blood Urea Nitrogen 28 mg/dl (9-20); Calcium 8.1 mg/dl (8.4-10.2); Carbon Dioxide 26 mmol/L (22-30); Chloride 103 mmol/L (98-107); Estimated Creatinine Clearance 42 ml/min; Glucose 117 mg/dl (70-99); Magnesium 1.9 mg/dl (1.6-2.3); Phosphorus 2.7 mg/dl (2.5-4.5); Potassium 4.2 mmol/L (3.5-5.1); Sodium 139 mmol/L (135-145); Total Bilirubin 4.6 mg/dl (0.2-1.3); Total Protein 5.9 g/dl (6.3-8.2); eGFR 44.78
--- NOTE | 2024-11-05 11:15 | W.PN.HOSP.TC ---
Today's Communication/Plan
-
IV antibiotics pending cultures.
Monitor for urinary retention.
Follow LFT.
Surgery evaluation for epiploic appendicitis.
Hold Xarelto acutely.
Assessment / Plan
Assessment / Plan
Impression:
Patient is an 89y M with PMH significant for A-Fib, hypothyroidism and chronic Hep B who presents to ED complaining of N/V and shaking chills.
Clinical sepsis present on admission
Abnormal urinalysis
SUZETTE.
Hyperbilirubinemia
Conditions prior to admission:
Acute cholecystitis status postcholecystectomy 05/31
Paroxysmal atrial fibrillation baseline anticoagulation with Xarelto.
Hypothyroidism on replacement
Chronic otitis B
BPH
Mild dementia senile type
Plan:
- Patient presents with fever, tachypnea and leukocytosis with potential GI or sources of infection.
- Started on abx yesterday for reported UTI (dx prior to admission).
- CT scan done in the ED this evening shows area of epiploic appendagitis in the LLQ / sigmoid region.
- IV abx with Zosyn for now.
- IVF support, antipyretics, etc.
- Follow-up culture data, follow fever curve, etc.
- Follow for clinical improvement.
- ID evaluation for additional recommendations.
- Surgery evaluation - though epiploic appendagitis not likely to require intervention.
SUZETTE
- SCr =1.2 compared to baseline of 0.9.
- Likely pre-renal / due to sepsis.
- IVF overnight and follow for improvement in renal function.
Paroxysmal Atrial Fibrillation
- Stable. Continue carvedilol.
- Hold Xarelto acutely in the unlikely event that surgical intervention is needed.
Hypothyroidism
- Stable. Continue T4 supplementation.
Chronic Hep B Infection
- Continue tenofovir.
BPH
- Continue finasteride / tamsulosin.
- Bladder scan protocol.
Mild Dementia
- Continue current outpatient medications.
DVT Prophylaxis: Subcut heparin
Code Status: Full
Anticipated Discharge: > 48 hours
Subjective/Interval History
-
Date of Service: November 05, 2024
Objective Data
-
Labs:
Laboratory Results
11/05/24 11/05/24
05:19 08:38
WBC 24.3 H
Hgb 13.4
Hct 39.9
Plt Count 152
Sodium Cancelled 139
Potassium Cancelled 4.2
Chloride Cancelled 103
Carbon Dioxide Cancelled 26
BUN Cancelled 28 H
Creatinine Cancelled 1.5 H
Glucose Cancelled 117 H
Calcium Cancelled 8.1 L
Total Bilirubin Cancelled 4.6 H
AST Cancelled 26
ALT Cancelled 21
Alkaline Phosphatase Cancelled 54
Vital Signs:
Vital Signs
Temp Pulse Resp BP Pulse Ox
98.2 F 78 25 112/65 96
11/05/24 03:34 11/05/24 07:45 11/05/24 07:45 11/05/24 07:43 11/05/24 07:45
Physical Exam
-
General: Well Developed and No Apparent Distress
HEENT: Normocephalic, Atraumatic and Moist Mucous Membranes
Respiratory: Clear to Auscultation
Cardiac: Regular Rhythm and S1/S2; Negative Murmur, Rub or Gallop
GI: Soft, Nontender, Nondistended and Normal Bowel Sounds; Negative Organomegaly
Rectal: Deferred by Provider
Musculoskeletal: No Clubbing, No Cyanosis and No Edema
Skin: Negative Rash
Neuro: Nonfocal/Grossly Intact
--- NOTE | 2024-11-05 11:49 | PTOTSP ---
pt currently demonstrates ability to complete simple ADLs, functional transfers, ambulation with supervision assistance. pt appears to be close to baseline, no acute OT needs identified, recommend home with assistance.
[2024-11-05] MEDS: ZOSYN 50 IV (12:16)
--- NOTE | 2024-11-05 12:16 | CON.ID ---
Consultation
-
Date/Time Consultation Requested: 11/05/24 3:32
Date/Time Consultation Performed: 11/05/24 12:17
Requesting Provider: Dr Lee
Performing Provider: Dr Richards
Reason for Consultation: Sepsis, Chronic HBV
Chief Complaint / Past History
Chief Complaint
nausea, vomiting, confusion, chills
History of Present Illness
Mr Tierney is an 89 year ol male with history of a fib, chronic hep B on TDF who presented here today for rigors, nausea, vomiting and confusion which began the night before. No abdominal pain, diarrhea or sick contacts. Had cholecystectomy 05/2024.
Family reports that patient had no urinary symptoms but underwent UA on sunday with PCP which was positive and he was started on macrobid; received first dose 11/04.
Since arrival here Tmax 100.9 orally, bp stable, wbc 24 on arrival and today, hgb 13.4, plt 152, L shift is noted, cr baseline 0.9, on arrival cr 1.2 and today its 1.5, na 139, lactic acid 1.9, t bili 4.6 (chronically elevated), ast 26, alt 21, alk
phos 54, UA >100 wbc/hpf, moderate bacteria, covid ag negative, CT a/p: possibly early epiploic appendagitis, Moderate diffuse bladder wall thickening likely due to limited distention. New. Cystitis and bladder outlet obstruction not excluded. CT
head no acute abnormality, CXR: no acute disease of the chest, urine culture in progress, blood cultures x2 in progress, influenza negative, covid ag negative, currently on zosyn. Surgery and ID consulted for assistance with management.
Past History
Additional Past Medical History:
Paroxysmal Atrial Fibrillation
Hypertension
Hypothyroidism
GERD
Nephrolithiasis
Dementia
Chronic Hepatitis B Infection
Additional Past Surgical History:
PPM Placement
Cholecystectomy
Allergy History:
No Known Allergies Allergy (Verified 05/15/24 02:33)
Medications Reviewed: Yes
Social History
Tobacco: Non-Smoker
Alcohol: None
Drug: None
Family History
Family History: Not Pertinent
Review of Systems
Review of Systems
General: Fever and Chills
All systems: All other systems were reviewed and were negative
Vital Signs
Temp Pulse Resp BP Pulse Ox
98.5 F 64 26 121/60 96
11/05/24 11:38 11/05/24 11:38 11/05/24 11:38 11/05/24 11:38 11/05/24 11:38
Physical Exam
Physical Exam
Constitutional: No Acute Distress and Chronically Ill
Cardiovascular: Regular Rate and S1/S2; Negative Murmur or Rub
Pulmonary: Clear and Symmetric; Negative Wheezes, Rales or Rhonchi
Gastrointestinal: Soft, Non Tender, Non Distended and Normal Bowel Sounds
Genito-Urinary: Negative Suprapubic Tenderness
Skin: Warm and Dry; Negative Rash or Jaundice
Lab / Diagnostic Study Results
11/05/24 05:19
11/05/24 08:38
Abs Immat Gran (auto) 0.2 10^3/uL (0-0.05) H 11/04/24 17:02
Absolute Neuts (auto) 20.2 10^3/uL (1.4-6.5) H 11/04/24 17:02
Absolute Lymphs (auto) 1.7 10^3/uL (1.2-3.4) 11/04/24 17:02
Absolute Monos (auto) 1.3 10^3/uL (0.1-0.6) H 11/04/24 17:02
Absolute Basos (auto) 0.0 10^3/uL (0-0.2) 11/04/24 17:02
Immature Gran % 0.9 % (0-0.5) H 11/04/24 17:02
Neutrophils % 86.0 % (42.2-75.2) H 11/04/24 17:02
Lymphocytes % 7.3 % (20.5-51.1) L 11/04/24 17:02
Monocytes % 5.5 % (1.7-9.3) 11/04/24 17:02
Eosinophils % 0.1 % (0-6) 11/04/24 17:02
Basophils % 0.2 % (0-2) 11/04/24 17:02
Lactic Acid Cancelled 11/05/24 02:45
Ur Squamous Epith Cells >30 /LPF (Few) 11/05/24 01:39
Microbiology Results
Micro:
11/05/24 01:39 Urine Culture - Pending
Urine
11/04/24 22:47 Blood Culture - Pending
Blood/Venous
11/04/24 22:47 Blood Culture - Pending
Blood/Venous
11/04/24 22:25 Influenza Types A & B (JOSE) - Final
Nasal Swab Negative for Influenza A & B, NAAT
Negative results must be combined with clinical observations
and patient history.
Nucleic Acid Amplification test (NAAT)performed on the
[employer] platform.
Assessment / Plan
UTI
Possible Epiploic appendagitis
Dementia
- blood cultures x2 are in progress
- UA with significant pyuria, urine culture in progress
- no history of colonization with MDROs known here
- Epiploic appendagitis does not typically require antibiotic therapy
- ceftriaxone for UTI - stopped zosyn
- follow urine culture and physical exam
[2024-11-05] MEDS: ROCEPHIN 2000 MG IV (16:16)
[2024-11-05] MEDS: STERILE WATER FOR INJECTION 20 ML IV (16:17)
--- NOTE | 2024-11-05 20:50 | TRANSFER ---
Patient transferred via stretcher accompanied by RN, report previously tubed to floor and verified with telephone call. All belongings sent with patient.
[2024-11-05] MEDS: CRESTOR 10 MG PO (21:59)
[2024-11-05] MEDS: FLOMAX 0.4 MG PO (21:59)
[2024-11-06] VITALS (8 sets, daily range): BP systolic 119–202; BP diastolic 50–90; PULSE 68–70; BMI 28.7
[2024-11-06] MEDS: LR 1000 IV ×2 (00:58→09:21)
[2024-11-06] MEDS: DUONEB 3 ML INH (03:01)
[2024-11-06] MEDS: SYNTHROID 75 MCG PO (06:10)
[2024-11-06 08:07] LABS: % Basophils 0.2 % (0-2); % Eosinophils 1.1 % (0-6); % Immature Granulocytes 0.5 % (0-0.5); % Lymphocytes 9.9 % (20.5-51.1); % Monocytes 4.4 % (1.7-9.3); % Neutrophils 83.9 % (42.2-75.2); Absolute Eosinophils 0.1 10^3/uL (0-0.7); Absolute Immature Granulocytes 0.1 10^3/uL (0-0.05); Absolute Lymphocytes 1.3 10^3/uL (1.2-3.4); Absolute Monocytes 0.6 10^3/uL (0.1-0.6); Absolute Neutrophils 10.9 10^3/uL (1.4-6.5); Hematocrit 39.2 % (39.0-52.0); Hemoglobin 13.2 g/dL (13.0-18.0); Mean Corp Hgb Conc. 33.7 g/dL (33.0-37.0); Mean Corpuscular Hgb 30.3 pg (27.0-31.0); Mean Corpuscular Volume 90.1 fL (80.0-94.0); Nucleated Red Blood Cells % 0 % (-); Platelet Count 153 10^3/uL (130-400); Red Blood Cell Count 4.35 10^6/uL (4.70-6.10); Red Cell Dist. Width 13.4 % (11.5-14.5)
[2024-11-06 09:18] LABS: Blood Urea Nitrogen 23 mg/dl (9-20); Calcium 8.1 mg/dl (8.4-10.2); Carbon Dioxide 24 mmol/L (22-30); Chloride 105 mmol/L (98-107); Estimated Creatinine Clearance 55 ml/min; Glucose 81 mg/dl (70-99); Potassium 3.7 mmol/L (3.5-5.1); Sodium 138 mmol/L (135-145); eGFR > 60.00
[2024-11-06] MEDS: PROTONIX 40 MG PO (09:20)
[2024-11-06] MEDS: VIREAD 300 MG PO (09:20)
[2024-11-06] MEDS: COREG 3.125 MG PO ×2 (09:20→21:33)
[2024-11-06] MEDS: NAMENDA 5 MG PO ×2 (09:20→21:33)
[2024-11-06] MEDS: ARICEPT 10 MG PO (09:21)
[2024-11-06] MEDS: HEPARIN 5000 UNITS SC (09:21)
[2024-11-06] MEDS: PROSCAR 5 MG PO (09:22)
[2024-11-06] MEDS: XARELTO 20 MG PO (13:58)
--- NOTE | 2024-11-06 14:23 | CM ---
Patient seen at bedside.
IA obtained by daughter Mary
Lives with daughter and in a 2 story home, 1st floor set up, 1 step to enter
daughter reports patient has aides daily through [employer]
PLOF: ambulates with walker
DME: Walker, cane, shower chair
Has had [facility] in past. Denies rehab
PT rec HH
Spoke with Tracy at [facility] and she states they do not use [employer].
Faxed notes to [facility] at [phone]
PCP: Saleem Panchal
Pharmacy: [facility], [address] [place] [address] Rd, [place], [place] [phone]
PLAN: home with [facility] when medically stable
[facility] fax #: [phone]
--- NOTE | 2024-11-06 15:17 | W.PN.ID1 ---
Date of Service
Date of Service: November 06, 2024
Today's Communication
- c/w ceftriaxone for UTI - deescalation to orals when sensitivities back
- follow urine culture and physical exam
Assessment / Plan
UTI
Possible Epiploic appendagitis
Dementia
- blood cultures x2 are in progress
- UA with significant pyuria, urine culture 60K presumptive E coli - may be lower colony count with true infection due to recent antibiotic exposure (macrobid)
- c/w ceftriaxone for UTI - deescalation to orals when sensitivities back
- follow urine culture and physical exam
Chief Complaint
-: UTI
Subjective / Review of Systems
no further fevers
bp stable
no events overnight
spoke with daughter at patient request, he lives with her. daughter shares patient speaks indonesian and [employer].
daughter feels she is back to his baseline.
Vital Signs / Physical Exam
Vital Signs
Vital Signs
Temp Pulse Resp BP Pulse Ox
98.5 F 70 22 148/90 97
11/06/24 11:10 11/06/24 11:10 11/06/24 11:10 11/06/24 11:10 11/06/24 11:10
Physical Exam
Constitutional: No Acute Distress
Cardiovascular: Regular Rate and S1/S2; Negative Murmur or Rub
Pulmonary: Clear and Symmetric; Negative Wheezes or Rales
Gastrointestinal: Soft, Non Tender, Non Distended and Normal Bowel Sounds
Genito-Urinary: Negative Suprapubic Tenderness
Skin: Warm and Dry; Negative Rash or Jaundice
Objective Data
Lab Data
Lab Results
11/06/24 06:59
11/06/24 06:59
Estimated Creat Clear 55 ml/min 11/06/24 06:59
Lactic Acid Cancelled 11/05/24 02:45
Total Bilirubin 4.6 mg/dl (0.2-1.3) H 11/05/24 08:38
AST 26 U/L (17-59) 11/05/24 08:38
ALT 21 U/L (0-50) 11/05/24 08:38
Alkaline Phosphatase 54 U/L (38-126) 11/05/24 08:38
Most recent labs reviewed.
Micro Results:
11/05/24 01:39 Urine Culture - Preliminary
Urine 60K Escherichia coli
11/04/24 22:47 Blood Culture - Preliminary
Blood/Venous No Growth in 24 hours- Final report to follow
11/04/24 22:47 Blood Culture - Preliminary
Blood/Venous No Growth in 24 hours- Final report to follow
11/04/24 22:25 Influenza Types A & B (JOSE) - Final
Nasal Swab Negative for Influenza A & B, NAAT
Negative results must be combined with clinical observations
and patient history.
Nucleic Acid Amplification test (NAAT)performed on the
[employer] platform.
--- NOTE | 2024-11-06 15:21 | W.PN.HOSP.TC ---
Today's Communication/Plan
-
Continue antibiotics as per ID.
Wean off IV fluids.
Advance diet
Resume Xarelto
PT assessment
Assessment / Plan
Assessment / Plan
Impression:
Patient is an 89y M with PMH significant for A-Fib, hypothyroidism and chronic Hep B who presents to ED complaining of N/V and shaking chills.
Clinical sepsis present on admission
UTI
SUZETTE.
Hyperbilirubinemia
Conditions prior to admission:
Acute cholecystitis status postcholecystectomy 05/31
Paroxysmal atrial fibrillation baseline anticoagulation with Xarelto.
Hypothyroidism on replacement
Chronic otitis B
BPH
Mild dementia senile type
Plan:
- Patient presents with fever, tachypnea and leukocytosis with potential GI or sources of infection.
- Started on abx yesterday for reported UTI (dx prior to admission).
- CT scan done in the ED this evening shows area of epiploic appendagitis in the LLQ / sigmoid region.
- Urine culture with E. coli
Antibiotics consolidated to ceftriaxone
CT scan findings reviewed with general surgery confirming epiploic appendicitis with no indication for surgical intervention.
Advance diet
SUZETTE
- SCr =1.5 compared to baseline of 0.9.
Improved with volume expansion. Creatinine down to 1.0
Paroxysmal Atrial Fibrillation
- Stable. Continue carvedilol.
- Continuing Xarelto
Hypothyroidism
- Stable. Continue T4 supplementation.
Chronic Hep B Infection
- Continue tenofovir.
BPH
- Continue finasteride / tamsulosin.
- Bladder scan protocol.
Mild Dementia
- Continue current outpatient medications.
DVT Prophylaxis: Subcut heparin
Code Status: Full
Anticipated Discharge: 24 - 48 hours
Subjective/Interval History
-
Date of Service: November 06, 2024
Objective Data
-
Labs:
Laboratory Results
11/06/24
06:59
WBC 13.0 H
Hgb 13.2
Hct 39.2
Plt Count 153
Sodium 138
Potassium 3.7
Chloride 105
Carbon Dioxide 24
BUN 23 H
Creatinine 1.0
Glucose 81
Calcium 8.1 L
Vital Signs:
Vital Signs
Temp Pulse Resp BP Pulse Ox
98.5 F 70 22 148/90 97
11/06/24 11:10 11/06/24 11:10 11/06/24 11:10 11/06/24 11:10 11/06/24 11:10
I&O
11/05/24 11/06/24 11/07/24
06:59 06:59 06:59
Intake Total 1740 / 1740
Output Total 50 / 50
Balance 1690 / 1690
Physical Exam
-
General: Well Developed and No Apparent Distress
HEENT: Normocephalic, Atraumatic and Moist Mucous Membranes
Respiratory: Clear to Auscultation
Cardiac: Regular Rhythm and S1/S2; Negative Murmur, Rub or Gallop
GI: Soft, Nontender, Nondistended and Normal Bowel Sounds; Negative Organomegaly
Rectal: Deferred by Provider
Musculoskeletal: No Clubbing, No Cyanosis and No Edema
Skin: Negative Rash
Neuro: Nonfocal/Grossly Intact
[2024-11-06] MEDS: ROCEPHIN 2000 MG IV (17:06)
[2024-11-06] MEDS: STERILE WATER FOR INJECTION 20 ML IV (17:06)
[2024-11-06] MEDS: CRESTOR 10 MG PO (21:33)
[2024-11-06] MEDS: FLOMAX 0.4 MG PO (21:33)
[2024-11-07 03:45] VITALS: BP 124/62
[2024-11-07] MEDS: SYNTHROID 50 MCG PO (05:31)
[2024-11-07 07:29] LABS: % Basophils 0.2 % (0-2); % Eosinophils 2.3 % (0-6); % Immature Granulocytes 0.9 % (0-0.5); % Lymphocytes 15.5 % (20.5-51.1); % Monocytes 6.9 % (1.7-9.3); % Neutrophils 74.2 % (42.2-75.2); Absolute Eosinophils 0.2 10^3/uL (0-0.7); Absolute Immature Granulocytes 0.1 10^3/uL (0-0.05); Absolute Monocytes 0.5 10^3/uL (0.1-0.6); Absolute Neutrophils 4.9 10^3/uL (1.4-6.5); Hematocrit 38.2 % (39.0-52.0); Hemoglobin 12.9 g/dL (13.0-18.0); Mean Corp Hgb Conc. 33.8 g/dL (33.0-37.0); Mean Corpuscular Hgb 29.8 pg (27.0-31.0); Mean Corpuscular Volume 88.2 fL (80.0-94.0); Mean Platelet Volume 9.6 fL (7.4-10.4); Nucleated Red Blood Cells % 0 % (-); Platelet Count 158 10^3/uL (130-400); Red Blood Cell Count 4.33 10^6/uL (4.70-6.10); Red Cell Dist. Width 13.1 % (11.5-14.5); White Blood Cell Count 6.6 10^3/uL (4.8-10.8)
[2024-11-07] MEDS: COREG 3.125 MG PO (07:37)
[2024-11-07] MEDS: VIREAD 300 MG PO (07:37)
[2024-11-07] MEDS: PROTONIX 40 MG PO (07:37)
[2024-11-07] MEDS: NAMENDA 5 MG PO (07:42)
[2024-11-07] MEDS: PROSCAR 5 MG PO (07:42)
[2024-11-07] MEDS: ARICEPT 10 MG PO (07:42)
[2024-11-07] MEDS: XARELTO 20 MG PO (07:42)
[2024-11-07 07:55] VITALS: BP 121/57
[2024-11-07 08:05] LABS: ALT (SGPT) 24 U/L (0-50); AST (SGOT) 33 U/L (17-59); Alkaline Phosphatase 58 U/L (38-126); Blood Urea Nitrogen 17 mg/dl (9-20); Calcium 7.6 mg/dl (8.4-10.2); Carbon Dioxide 27 mmol/L (22-30); Chloride 103 mmol/L (98-107); Estimated Creatinine Clearance 55 ml/min; Glucose 110 mg/dl (70-99); Potassium 3.4 mmol/L (3.5-5.1); Sodium 138 mmol/L (135-145); Total Bilirubin 1.4 mg/dl (0.2-1.3); Total Protein 5.4 g/dl (6.3-8.2); eGFR > 60.00
[2024-11-07 11:55] VITALS: BP 133/70
--- NOTE | 2024-11-07 12:28 | W.PN.ID1 ---
Date of Service
Date of Service: November 07, 2024
Today's Communication
- daughter (cares for patient at home) was asking for dc today, we could discharge with cefdinir 300 mg PO BID x7 days 11/05-11/11 or could wait another day for sensitivities
Assessment / Plan
UTI
Possible Epiploic appendagitis
Dementia
- blood cultures x2 are in progress
- UA with significant pyuria, urine culture 60K presumptive E coli - may be lower colony count with true infection due to recent antibiotic exposure (macrobid)
- daughter (cares for patient at home) was asking for dc today, we could discharge with cefdinir 300 mg PO BID x7 days 11/05-11/11 or could wait another day for sensitivities
Chief Complaint
-: UTI
Subjective / Review of Systems
afebrile
bp stable
gives me a thumbs up
Vital Signs / Physical Exam
Vital Signs
Vital Signs
Temp Pulse Resp BP Pulse Ox
98.7 F 62 16 121/57 96
11/07/24 07:55 11/07/24 07:55 11/07/24 07:55 11/07/24 07:55 11/07/24 10:15
Physical Exam
Constitutional: No Acute Distress
Cardiovascular: Regular Rate and S1/S2; Negative Murmur or Rub
Pulmonary: Clear and Symmetric; Negative Wheezes or Rales
Gastrointestinal: Soft, Non Tender, Non Distended and Normal Bowel Sounds
Genito-Urinary: Negative Suprapubic Tenderness
Skin: Warm and Dry; Negative Rash or Jaundice
Objective Data
Lab Data
Lab Results
11/07/24 06:50
11/07/24 06:50
Estimated Creat Clear 55 ml/min 11/07/24 06:50
Lactic Acid Cancelled 11/05/24 02:45
Total Bilirubin 1.4 mg/dl (0.2-1.3) H D 11/07/24 06:50
AST 33 U/L (17-59) 11/07/24 06:50
ALT 24 U/L (0-50) 11/07/24 06:50
Alkaline Phosphatase 58 U/L (38-126) 11/07/24 06:50
Most recent labs reviewed.
Micro Results:
11/05/24 01:39 Urine Culture - Preliminary
Urine Escherichia coli
11/04/24 22:47 Blood Culture - Preliminary
Blood/Venous No Growth in 48 hours- Final report to follow
11/04/24 22:47 Blood Culture - Preliminary
Blood/Venous No Growth in 48 hours- Final report to follow
11/04/24 22:25 Influenza Types A & B (JOSE) - Final
Nasal Swab Negative for Influenza A & B, NAAT
Negative results must be combined with clinical observations
and patient history.
Nucleic Acid Amplification test (NAAT)performed on the
[employer] platform.
Care Review
Plan reviewed with: Physician (Dr Maryana gilbert)
--- NOTE | 2024-11-07 14:35 | W.DS.TRANS ---
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
-
Discharge Instructions:
Sleep Apnea Risk Intermediate
Discharge Diagnosis/Procedures Impression:
Patient is an 89y M with PMH significant for A-
Fib, hypothyroidism and chronic Hep B who
presents to ED complaining of N/V and shaking
chills.
Clinical sepsis present on admission
UTI
SUZETTE.
Hyperbilirubinemia
Conditions prior to admission:
Acute cholecystitis status postcholecystectomy 8
Paroxysmal atrial fibrillation baseline
anticoagulation with Xarelto.
Hypothyroidism on replacement
Chronic otitis B
BPH
Mild dementia senile type
Diet Regular
Instructions:
Stand-Alone Forms:
Changes to Home Medications: Yes
Discharge Medications:
DC Medications w/original date entered in [place]
rivaroxaban 20 mg tablet (Xarelto) 20 mg PO DAILY Blood Clot Prevention/Tx 02/24/16
tamsulosin 0.4 mg capsule 0.4 mg PO HS Prostate Issue 02/24/16
dutasteride 0.5 mg capsule 0.5 mg PO DAILY Prostate Issues 04/18/17
acetaminophen 500 mg tablet 500 mg PO BIDPRN PRN mild pain 04/15/24
ascorbic acid (vitamin C) 500 mg tablet 500 mg PO DAILY Supplement 04/15/24
carvedilol 3.125 mg tablet 3.125 mg PO BID Blood Pressure 04/15/24
cholecalciferol (vitamin D3) 50 mcg (2,000 unit) tablet 50 mcg PO DAILY Supplement 04/15/24
cyanocobalamin (vitamin B-12) 1,000 mcg tablet 1,000 mcg PO DAILY Supplement 04/15/24
donepezil 10 mg tablet 10 mg PO DAILY Mental Health 04/15/24
ezetimibe 10 mg tablet 10 mg PO HS High Cholesterol 04/15/24
hydrocortisone 2.5 % topical cream with perineal applicator 1 applic topical DAILY Anti-Inflammatory 04/15/24
icosapent ethyl 1 gram capsule (Vascepa) 2 g PO BID High Cholesterol 04/15/24
lactulose 10 gram/15 mL oral solution (Enulose) 30 ml PO DAILYPRN PRN constipation 04/15/24
levothyroxine 50 mcg tablet 50 mcg PO Q48H Thyroid 04/15/24
levothyroxine 75 mcg tablet 75 mcg PO Q48H Thyroid 04/15/24
meclizine 12.5 mg tablet 12.5 mg PO BID Neurological Condition 04/15/24
mirabegron 50 mg tablet,extended release 24 hr (Myrbetriq) 50 mg PO DAILY Urinary Issue 04/15/24
pantoprazole 40 mg tablet,delayed release 40 mg PO DAILY Gastrointestinal Issue 04/15/24
rosuvastatin 10 mg tablet 10 mg PO HS High Cholesterol 04/15/24
tenofovir disoproxil fumarate 300 mg tablet 300 mg PO DAILY ANTIHEPADNAIRAL 05/15/24
memantine 14 mg capsule sprinkle,extended release 24hr 14 mg PO DAILY 11/04/24
polyethylene glycol 3350 17 gram oral powder packet (HealthyLax) 17 g PO HSPRN PRN constipation 11/04/24
cefdinir 300 mg capsule 300 mg PO BID #10 caps 11/07/24
Home Medication Changes
Completing antibiotic course at home
Pending Results: No
== END 2024-11-07 15:28 | disposition home health service (06) | DRG 872 ==
LOC: 4 EAST ACU 03:16
PROVIDERS: Physician Assistant; Registered Nurse; ADMITTING PHYSICIAN Hospitalist; ATTENDING PHYSICIAN Internal Medicine; CONSULT PHYSICIAN Student in an Organized Health Care Education/Training Program; EMERGENCY PHYSICIAN Student in an Organized Health Care Education/Training Program; FAMILY PHYSICIAN Internal Medicine
DX: A41.9 Sepsis, unspecified organism (principal); B18.1 Chronic viral hepatitis B without delta-agent; N39.0 Urinary tract infection, site not specified; Q43.8 Other specified congenital malformations of intestine; N17.9 Acute kidney failure, unspecified; K63.89 Other specified diseases of intestine; F03.A0 Unspecified dementia, mild, without behavioral disturbance, psychotic disturbance, mood disturbance, and anxiety; I48.0 Paroxysmal atrial fibrillation; E03.9 Hypothyroidism, unspecified; N40.0 Benign prostatic hyperplasia without lower urinary tract symptoms; Z11.52 Encounter for screening for COVID-19; Z79.01 Long term (current) use of anticoagulants; Z87.442 Personal history of urinary calculi; Z90.49 Acquired absence of other specified parts of digestive tract
CPT/HCPCS: 70450; 71046; 74177; 80048; 80053; 80076; 81003; 81015; 82248; 83605; 83690; 83735; 83880; 84100; 84443; 84484; 85025; 85027; 87040; 87077; 87086; 87502; 87811; 93005; 94640; 97165; Q9967

== ENCOUNTER 2025-02-08 10:43 | Emergency (ER) | payer MEDICARE, OTHER, SELFPAY ==
[2025-02-08 10:54] VITALS: BP 137/63
--- NOTE | 2025-02-08 12:25 | ED.MUSCINJ ---
HPI-Injury
General
Chief Complaint: Musculo-Skeletal Complaint
Source: patient
Exam Limitations: none
Time Seen by Provider: 02/08/25 12:15
History of Present Illness-Injury
Initial Injury comments:
89-year-old male on Xarelto presents complaining of right foot pain and swelling starting yesterday. He dropped a 2 x 4 onto his foot. No other complaints at this time
Past History
Past History
ED Past Medical History: Arrthythmia (Atrial fibrillation), HTN, Hypercholesterolemia and Other (pacemaker)
ED Past Surgical History: Cardiac
Social History
Tobacco: Non-smoker
Alcohol: None
Drug: None
Personal:
Living: with family
Family History
Family History: Other (no significant); Negative Sudden
Phy Exam
Physical Exam
Physical Exam:
General: Well-appearing male no acute respiratory distress
HEENT: Normocephalic atraumatic
Musculoskeletal exam: Right foot swollen ecchymotic and tender over the distal metatarsal area. No deformity. The ankle is nontender.
Injury Course
Orders/Labs/Results
Orders:
Orders
02/08/25 10:45
CR Foot - Right Min 3 Views Urgent
Comment:
Reason For Exam: injury
MDM/Problems Addressed
Differential Diagnosis Includes:
Right foot pain. Consider contusion versus fracture
X-rays personally visualized and demonstrate nondisplaced fracture of the distal third metatarsal. Patient having difficulty ambulating secondary to his pain. A boot was supplied. Recommended Tylenol for pain. Referred to orthopedic stable for
discharge
*Critical Care Note
Total Time (30-74mins, 75-104mins- exclusive of procedures): Not Applicable
ED Attending Note
-
Portions of this chart may have been created with voice recognition software.� Occasional wrong word or��sound alike� substitutions may have occurred due to the inherent limitations of voice recognition software.
Discharge Plan
Departure
Patient Disposition: Home (Routine Discharge)
Date of Disposition: 02/08/25
Time of Disposition: 12:29
Patient with high blood pressure during this ER visit?: No
Discharge Problem:
Foot fracture, right
Instructions: Muscle and Bone Pain (DC)
Prescriptions:
No Action
tamsulosin 0.4 MG capsule
0.4 mg PO HS
Xarelto 20 MG tablet
20 mg PO DAILY
dutasteride 0.5 MG capsule
0.5 mg PO DAILY
donepezil 10 mg tablet
10 mg PO DAILY
cyanocobalamin (vitamin B-12) 1,000 mcg Tablet
1,000 mcg PO DAILY
meclizine 12.5 mg tablet
12.5 mg PO BID
acetaminophen 500 mg Tablet
500 mg PO BIDPRN PRN (Reason: mild pain)
carvedilol 3.125 mg tablet
3.125 mg PO BID
levothyroxine 75 mcg tablet
75 mcg PO Q48H
hydrocortisone 2.5 % cream with perineal applicator
1 applic topical DAILY
ascorbic acid (vitamin C) 500 mg Tablet
500 mg PO DAILY
levothyroxine 50 mcg tablet
50 mcg PO Q48H
pantoprazole 40 mg tablet,delayed release (DR/EC)
40 mg PO DAILY
ezetimibe 10 mg tablet
10 mg PO HS
rosuvastatin 10 mg tablet
10 mg PO HS
lactulose [Enulose] 10 gram/15 mL solution
30 ml PO DAILYPRN PRN (Reason: constipation)
cholecalciferol (vitamin D3) 50 mcg (2,000 unit) Tablet
50 mcg PO DAILY
mirabegron [Myrbetriq] 50 mg tablet extended release 24 hr
50 mg PO DAILY
icosapent ethyl [Vascepa] 1 gram capsule
2 g PO BID
tenofovir disoproxil fumarate 300 mg Tablet
300 mg PO DAILY
memantine 14 mg Capsule,Sprinkle,Er 24hr
14 mg PO DAILY
polyethylene glycol 3350 [HealthyLax] 17 gram powder in packet
17 g PO HSPRN PRN (Reason: constipation)
cefdinir 300 mg capsule
300 mg PO BID Qty: 10 0RF
Referrals:
Saleem Panchal MD [Family Provider] -
Faustino Pineda MD [Active] -
Activity Restrictions/Additional Instructions:
Use boot for support. Use Tylenol for pain. Follow-up with orthopedics for further evaluation
Interventions
Interventions:
*Risk Screen - Suicide Last Done: 02/08/25 10:54
*General Assessment Last Done: 02/08/25 10:54
*Neglect/Abuse Screening Last Done: 02/08/25 11:14
*ED- Fall Risk Assessment Last Done: 02/08/25 11:14
*ED COVID-19 Vaccine History Last Done: 02/08/25 10:54
ED-Musculoskeletal Assessment Last Done: 02/08/25 11:14
Discharge Date and Time
Print Language: ETHIOPIAN
== END 2025-02-08 12:43 | disposition home or self-care (01) ==
LOC: EMR 10:43
PROVIDERS: EMERGENCY PHYSICIAN Emergency Medicine; FAMILY PHYSICIAN Internal Medicine
DX: S92.334A Nondisplaced fracture of third metatarsal bone, right foot, initial encounter for closed fracture (principal); W20.8XXA Other cause of strike by thrown, projected or falling object, initial encounter; I48.91 Unspecified atrial fibrillation; I10 Essential (primary) hypertension; E78.00 Pure hypercholesterolemia, unspecified; Z95.0 Presence of cardiac pacemaker; Z79.01 Long term (current) use of anticoagulants
CPT/HCPCS: 99283; 73630

== ENCOUNTER 2025-07-15 11:13 | Day surgery (SDC) | payer MEDICARE, OTHER, SELFPAY ==
[2025-07-15 11:43] LABS: Hematocrit 42.5 % (39.0-52.0); Hemoglobin 14.4 g/dL (13.0-18.0); Mean Corp Hgb Conc. 33.9 g/dL (33.0-37.0); Mean Corpuscular Volume 88.4 fL (80.0-94.0); Platelet Count 173 10^3/uL (130-400); Red Cell Dist. Width 13.3 % (11.5-14.5)
[2025-07-15 11:46] VITALS: BMI 33.1
[2025-07-15 11:54] VITALS: BP 172/87
[2025-07-15 11:55] VITALS: BP 172/87
[2025-07-15 12:08] LABS: Blood Urea Nitrogen 24 mg/dl (9-20); Calcium 9.0 mg/dl (8.4-10.2); Carbon Dioxide 31 mmol/L (22-30); Chloride 104 mmol/L (98-107); Estimated Creatinine Clearance 53 ml/min; Glucose 99 mg/dl (70-99); Potassium 4.2 mmol/L (3.5-5.1); Sodium 140 mmol/L (135-145); eGFR > 60.00
--- NOTE | 2025-07-15 16:14 | ITS.CL.PACE ---
[employer] - Pacemaker Implant
Pacemaker Implant
Procedure Report:
Primary Grading Clerk: Dr Quin Zhang
Procedure Date: 07/15/2025
Name of procedure:
1. Device Revision: Single Chamber Pacemaker
2. Pulse Generator Change
History:
See H&P for full details.
Patient is a pleasant 89-year-old male with a past medical history significant for atrial fibrillation, sick sinus syndrome status post single-chamber pacemaker with permanent AF, chronic anticoagulation, nonobstructive CAD, hypertension,
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
Methods:
After informed consent was obtained, the patient was brought to the EP laboratory in a postabsorptive, nonsedated state. Peripheral IV access was established. Prophylactic antibiotics were administered prior to incision. Continues ECG, blood
pressure, and pulse oximetry were initiated. Cardioversion patch electrodes were placed on the patient's chest and back. A grounding patch was applied to the skin. Sedation was administered by anesthesia services.
The left chest was prepared and draped in a sterile fashion. A 'time out' was called. Local anesthesia was injected in the subcutaneous tissue in the infraclavicular area. An incision was made into the chronic scar. With cautious attention to the
lead, the subcutaneous tissue was dissected the level of the device capsule. The capsule was opened, the device was explanted and disconnected from the lead. The lead was inspected and found to be free of visible defect. The lead was tested and
found to have adequate pacing and sensing parameters, consistent with pre-procedure measurements.
The pocket was flushed with antibiotic solution and hemostasis was assured. Antibiotic envelope was used. The generator was connected to the lead and placed inside the pocket. The wound was closed with 3 running layers of absorbable suture and
steri-strips were applied to the skin.
Following the procedure, the patient was taken to the recovery area in stable condition. No complications were noted.
Lead parameters and device programming:
- RV Lead ([employer], model: 4092, SN# [id number]): Sensing 6.9 mV, Pacing threshold 1.0 V at 0.4 ms, Imp 513 ohm
- Device: [employer]onic pacemaker model: W1 SR 01, SN# [id number], programmed VVIR 60-130 ppm
- Explanted device: [id number], SN# [id number]
Recommendations:
1. Discharge home when stable with instructions for site care
2. Follow-up will be arranged in our office 7-10 days post-discharge for incision check
Ivan Mann DO, FACC, RS
Clinical Cardiac Electrophysiology
Copy to: Dr Lamont Zhang, Dr Saleem Panchal
[2025-07-15 17:27] VITALS: BP 147/69
[2025-07-15 17:36] VITALS: BP 140/76
== END 2025-07-15 17:53 | disposition home or self-care (01) ==
LOC: CATH 11:13
PROVIDERS: ATTENDING PHYSICIAN Internal Medicine Cardiovascular Disease; FAMILY PHYSICIAN Internal Medicine; OTHER PHYSICIAN Internal Medicine Cardiovascular Disease
DX: Z45.010 Encounter for checking and testing of cardiac pacemaker pulse generator [battery] (principal); I48.21 Permanent atrial fibrillation; I49.5 Sick sinus syndrome; Z79.01 Long term (current) use of anticoagulants; I25.10 Atherosclerotic heart disease of native coronary artery without angina pectoris; I10 Essential (primary) hypertension; E78.5 Hyperlipidemia, unspecified
CPT/HCPCS: 33227; 80048; 85027; C1786